=== PATIENT | male | born 1950 | race Hispanic/Latino ===

== ENCOUNTER 2018-09-28 15:07 | Emergency (ER) | payer OTHER ==
[2018-09-28] MEDS ORDERED: TETANUS & DIPHTHERIA TOX,ADULT 0.5 ML VIAL ONE (15:39)
--- NOTE | 2018-09-28 15:57 | RAD REPORT ---
EXAM DESCRIPTION: CT - CTHCSPWOC - 09/28/2018 3:49 pm CLINICAL HISTORY: Trauma, head and neck injury. Fall injury, laceratoin back of head COMPARISON: No comparisons TECHNIQUE: Axial 5 mm thick images of the head were obtained. Axial 2 mm thick images of the cervical spine were obtained with sagittal and coronal reconstruction images generated and reviewed. All CT scans are performed using dose optimization technique as appropriate and may include automated exposure control or mA/KV adjustment according to patient size. FINDINGS: CT HEAD WITHOUT CONTRAST: No acute hemorrhage, hydrocephalus or extra-axial collection is identified.Moderate generalized brain atrophy is present with moderate periventricular and deep white matter chronic microvascular ischemi c changes.No areas of brain edema or midline shift. Chronic left maxillary sinusitis suspected. The paranasal sinuses and mastoids are otherwise clear.Th e calvarium is intact. CT CERVICAL SPINE WITHOUT CONTRAST: No fracture or subluxation.Mild lower cervical degenerative changes.No prevertebral soft tissues swel ling is identified. IMPRESSION: No acute intracranial or cervical spine findings.
--- NOTE | 2018-09-28 16:41 | ER ---
Nurse's Notes [facility] Name: Francisco Recio Age: 68 yrs Sex: Male : 1950 Arrival Date: 09/28/2018 Time: 15:09 Bed 26 Private MD: Diagnosis: Laceration without foreign body of scalp Presentation: 09/28 15:11 Presenting complaint: EMS states: pt fell in room, it was witnessed, no LOC, no tl3 vomiting, no change in pt normal behavior. Transition of care: patient was [facility]. Complicating Factors: There are no complicating factors for this patient. Onset of symptoms was September 28, 2018 at 15:13. Risk Assessment: Do you want to hurt yourself or someone else? Patient reports no desire to harm self or others. Initial Sepsis Screen: Does the patient meet any 2 criteria? No. Patient's initial sepsis screen is negative. Does the patient have a suspected source of infection? No. Patient's initial sepsis screen is negative. Care prior to arrival: None. 15:11 Method Of Arrival: EMS: [facility] tl3 15:11 Acuity: TITUS 4 tl3 Triage Assessment: 15:20 General: Appears in no apparent distress. General: Behavior is calm, appropriate for tl3 age, pt only able to communicate his name. Pain: Denies pain. EENT: No deficits noted. No signs and/or symptoms were reported regarding the EENT system. Neuro: No deficits noted. Level of Consciousness is awake, alert, obeys commands, Oriented to person, place, time, situation, Appropriate for age. Cardiovascular: Patient's skin is warm and dry. Respiratory: Airway is patent Respiratory effort is even, unlabored, Respiratory pattern is regular, symmetrical. GI: No deficits noted. No signs and/or symptoms were reported involving the gastrointestinal system. Injury Description: Laceration sustained to occipital area is clean, jagged, not bleeding. Historical: - Allergies: 15:20 No Known Allergies; tl3 - Home Meds: 15:20 benztropine 0.5 mg Oral tab 1 tab 2 times per day [Active]; Depakote Sprinkles six tl3 capsules Oral 2 times per day [Active]; donepezil 10 mg oral tab 2 tab nightly [Active]; ergocalciferol (vitamin D2) 50,000 unit oral cap 1 cap once daily [Active]; gabapentin 100 mg oral cap 1 caps daily [Active]; hydroxyzine HCl 25 mg Oral tab 1 tab 4 times per day [Active]; magnesium oxide 400 mg Oral cap daily [Active]; Prozac 20 mg Oral cap 1 cap once daily [Active]; quetiapine 100 mg oral tab 1 tab daily [Active]; quetiapine 400 mg oral tab 1 tab nightly [Active]; - PMHx: 15:20 Dementia; Hypertension; psycosis; Polyosteoarthritis; tl3 - Immunization history:: Adult Immunizations up to date. - Social history:: Smoking status: unknown. - Ebola Screening: : No symptoms or risks identified at this time. Screenin:26 Abuse screen: Denies threats or abuse. Nutritional screening: No deficits noted. tl3 Tuberculosis screening: No symptoms or risk factors identified. Fall Risk Secondary diagnosis (15 points) dementia, impaired mobility. Assessment: 15:26 Reassessment: No changes from previously documented assessment. pt placed in room 26 in tl3 front of nursing station for observation. Musculoskeletal: No deficits noted. Injury Description: fell in room, unsure of what pt hit his head on. 16:12 Reassessment: report given to [facility], will arrange for [facility] ambulance iw service to transport pt back to facility. 16:13 Reassessment: wound cleaned with betadine, hair trimmed around injury to allow for good tl3 visualzation. 17:22 Reassessment: Patient appears in no apparent distress at this time. No changes from tl3 previously documented assessment. Patient and/or family updated on plan of care and expected duration. Pain level reassessed. Patient is alert, oriented x 3, equal unlabored respirations, skin warm/dry/pink. awaiting transport to bring pt back to facility. 18:46 Reassessment: Patient appears in no apparent distress at this time. No changes from tl3 previously documented assessment. Patient and/or family updated on plan of care and expected duration. Pain level reassessed. Patient is alert, oriented x 3, equal unlabored respirations, skin warm/dry/pink. [facility] transfer service here to take pt back to facility. Vital Signs: 15:20 BP 143 / 78; Pulse 75; Resp 18; Temp 98.7(A); Pulse Ox 100% on R/A; tl3 17:22 BP 124 / 71; Pulse 68; Resp 18; Pulse Ox 97% on R/A; tl3 ED Course: 15:09 Patient arrived in ED. tl3 15:13 Triage completed. tl3 15:18 Stuart Lyons, ROHIT is Primary Nurse. mg2 15:19 Alejandro Richmond [facility]. pm1 15:19 Quincy Engel MD is Attending Physician. pm1 15:20 Arm band placed on left wrist. tl3 15:26 Patient has correct armband on for positive identification. Fall risk band placed. Bed tl3 in low position. Call light in reach. Side rails up X2. 15:26 No provider procedures requiring assistance completed. Patient did not have IV access tl3 during this emergency room visit. 15:[address] via stretcher. tl3 15:49 CT Head C Spine In Process Unspecified. EDMS 15:[address] moved back from [address]. tl3 Administered Medications: 15:33 Drug: Tetanus-Diphtheria Toxoid Adult 0.5 ml {Manager Salt: [employer] Exp: tl3 10/22/2020. Lot #: [id number]. } Route: IM; Site: right deltoid; 17:23 Follow up: Response: No adverse reaction tl3 Outcome: 16:40 Discharge ordered by . pm1 18:46 Discharged to [facility]. tl3 18:46 Condition: stable 18:46 Discharge instructions given to EMS. 18:48 Patient left the ED. tl3 Signatures: Dispatcher [employer] EDUzma Scales RN RN iw Alejandro Richmond NP [employer]ER pm1 Sadie Iglesias RN RN tl3 Stuart Lyons, ROHIT RN mg2
--- NOTE | 2018-09-28 16:41 | EDPHYS ---
Physician Documentation [facility] Name: Francisco Recio Age: 68 yrs Sex: Male : 1950 Arrival Date: 09/28/2018 Time: 15:09 Bed 26 Private MD: ED Physician Quincy Engel HPI: 09/28 15:38 This 68 yrs old Male presents to ER via EMS with complaints of Fall Injury. pm1 15:38 Details of fall: The patient fell from an upright position, while standing. Onset: The pm1 symptoms/episode began/occurred just prior to arrival. Associated injuries: The patient sustained injury to the head, laceration, of the scalp and occipital area. Patient from skilled nursing. According to EMS, patient is at his baseline dementia. Patient is aware only to his name. 15:38 Witnessed fall by skilled nursing staff. Patient ambulated to dining area and he was pm1 sitting down and eating popcorn per EMS on arrival. Historical: - Allergies: 15:20 No Known Allergies; tl3 - Home Meds: 15:20 benztropine 0.5 mg Oral tab 1 tab 2 times per day [Active]; Depakote Sprinkles six tl3 capsules Oral 2 times per day [Active]; donepezil 10 mg oral tab 2 tab nightly [Active]; ergocalciferol (vitamin D2) 50,000 unit oral cap 1 cap once daily [Active]; gabapentin 100 mg oral cap 1 caps daily [Active]; hydroxyzine HCl 25 mg Oral tab 1 tab 4 times per day [Active]; magnesium oxide 400 mg Oral cap daily [Active]; Prozac 20 mg Oral cap 1 cap once daily [Active]; quetiapine 100 mg oral tab 1 tab daily [Active]; quetiapine 400 mg oral tab 1 tab nightly [Active]; - PMHx: 15:20 Dementia; Hypertension; psycosis; Polyosteoarthritis; tl3 - Immunization history:: Adult Immunizations up to date. - Social history:: Smoking status: unknown. - Ebola Screening: : No symptoms or risks identified at this time. ROS: 15:38 Constitutional: Negative for fever, chills, and weight loss, Eyes: Negative for injury, pm1 pain, redness, and discharge, ENT: Negative for injury, pain, and discharge, Neck: Negative for injury, pain, and swelling, Cardiovascular: Negative for chest pain, palpitations, and edema, Respiratory: Negative for shortness of breath, cough, wheezing, and pleuritic chest pain, Abdomen/GI: Negative for abdominal pain, nausea, vomiting, diarrhea, and constipation, Back: Negative for injury and pain, : Negative for injury, bleeding, discharge, and swelling, MS/Extremity: Negative for injury and deformity. 15:38 Skin: Positive for laceration(s), of the scalp and occipital area. 15:38 Neuro: Negative for loss of consciousness. 15:38 Unable to obtain ROS due to baseline dementia. pm1 Exam: 15:38 Constitutional: This is a well developed, well nourished patient who is awake, alert, pm1 and in no acute distress. 15:38 Eyes: Pupils equal round and reactive to light, extra-ocular motions intact. Lids and lashes normal. Conjunctiva and sclera are non-icteric and not injected. Cornea within normal limits. Periorbital areas with no swelling, redness, or edema. ENT: Nares patent. No nasal discharge, no septal abnormalities noted. Tympanic membranes are normal and external auditory canals are clear. Oropharynx with no redness, swelling, or masses, exudates, or evidence of obstruction, uvula midline. Mucous membranes moist. Neck: Trachea midline, no thyromegaly or masses palpated, and no cervical lymphadenopathy. Supple, full range of motion without nuchal rigidity, or vertebral point tenderness. No Meningismus. Chest/axilla: Normal chest wall appearance and motion. Nontender with no deformity. No lesions are appreciated. Cardiovascular: Regular rate and rhythm with a normal S1 and S2. No gallops, murmurs, or rubs. Normal PMI, no JVD. No pulse deficits. Respiratory: Lungs have equal breath sounds bilaterally, clear to auscultation and percussion. No rales, rhonchi or wheezes noted. No increased work of breathing, no retractions or nasal flaring. Abdomen/GI: Soft, non-tender, with normal bowel sounds. No distension or tympany. No guarding or rebound. No evidence of tenderness throughout. Back: No spinal tenderness. No costovertebral tenderness. Full range of motion. Skin: Warm, dry with normal turgor. Normal color with no rashes, no lesions, and no evidence of cellulitis. MS/ Extremity: Pulses equal, no cyanosis. Neurovascular intact. Full, normal range of motion. 15:38 Head/face: Noted is no obvious of injury or deformity except a laceration(s), 2 cm(s), of the scalp and occipital area. 15:38 Neuro: Orientation: to person, Motor: moves all fours. Vital Signs: 15:20 BP 143 / 78; Pulse 75; Resp 18; Temp 98.7(A); Pulse Ox 100% on R/A; tl3 17:22 BP 124 / 71; Pulse 68; Resp 18; Pulse Ox 97% on R/A; tl3 Laceration: 16:38 Wound Repair of 2cm ( 0.8in ) subcutaneous laceration to occipital area. Irregularly pm1 shaped.. Distal neuro/vascular/tendon intact. Wound prep: Extensive cleansing with betadine by nurse, Wound irrigation with saline by nurse, Wound explored extensively, Copious irrigation. Skin closed with 2 1-0 Charissa using staple gun. Patient tolerated well. MDM: 15:25 Patient medically screened. pm1 16:38 Data reviewed: vital signs. Data interpreted: Pulse oximetry: on room air is 100 %. pm1 Interpretation: normal. Counseling: I had a detailed discussion with the patient and/or guardian regarding: the historical points, exam findings, and any diagnostic results supporting the discharge/admit diagnosis, the need for outpatient follow up, to return to the emergency department if symptoms worsen or persist or if there are any questions or concerns that arise at home. 09/28 15:26 Order name: CT Head C Spine; Complete Time: 16:09 pm1 09/28 15:26 Order name: [facility] [place]. Order: Staple gun; Complete Time: 15:29 pm1 Administered Medications: 15:33 Drug: Tetanus-Diphtheria Toxoid Adult 0.5 ml {Financial Analysis Manager: [employer] Exp: tl3 10/22/2020. Lot #: [id number]. } Route: IM; Site: right deltoid; 17:23 Follow up: Response: No adverse reaction tl3 Disposition: 09/29 09:36 Co-signature as Attending Physician, Quincy Engel MD I agree with the assessment and kdr plan of care. Disposition: 09/28/18 16:40 Discharged to Home. Impression: Laceration without foreign body of scalp. - Condition is Stable. - Discharge Instructions: Head Injury, Adult, Stitches, [place], or Adhesive Wound Closure. - Medication Reconciliation Form, Thank You Letter form. - Follow up: Emergency Department; When: As needed; Reason: Worsening of condition. Follow up: Private Physician; When: 10 - 14 days; Reason: Recheck today's complaints, Continuance of care, Staple/Suture removal, Re-evaluation by your physician. - Problem is new. - Symptoms have improved. Signatures: Dispatcher [employer] EDMS Quincy Engel MD MD kdr Alejandro Richmond NP [employer]NEL FEEDER pm1 Sadie Iglesias RN RN tl3 Corrections: (The following items were deleted from the chart) 09/28 18:48 16:40 09/28/2018 16:40 Discharged to Home. Impression: Laceration without foreign body tl3 of scalp. Condition is Stable. Forms are Medication Reconciliation Form, Thank You Letter, Antibiotic Education, Prescription Opioid Use. Follow up: Emergency Department; When: As needed; Reason: Worsening of condition. Follow up: Private Physician; When: 10 - 14 days; Reason: Recheck today's complaints, Continuance of care, Staple/Suture removal, Re-evaluation by your physician. Problem is new. Symptoms have improved. pm1
== END 2018-09-28 18:48 | disposition home or self-care (01) ==
LOC: ER 15:07
PROC: 0JQ00ZZ Repair Scalp Subcutaneous Tissue and Fascia, Open Approach (ICD-10-PCS; principal; 2018-09-28)
DX: S01.01XA Laceration without foreign body of scalp, initial encounter (principal); Z23 Encounter for immunization; W19.XXXA Unspecified fall, initial encounter; Y92.122 Bedroom in nursing home as the place of occurrence of the external cause; F03.90 Unspecified dementia, unspecified severity, without behavioral disturbance, psychotic disturbance, mood disturbance, and anxiety; I10 Essential (primary) hypertension; M15.0 Primary generalized (osteo)arthritis; Z79.899 Other long term (current) drug therapy
CPT/HCPCS: 70450; 72125; 90714; 99284

== ENCOUNTER 2019-09-02 17:04 | Inpatient (IN) | payer OTHER ==
[2019-09-02] MEDS ORDERED: MIDAZOLAM HCL 2 MG/2 ML INJ ONE (17:33)
[2019-09-02 17:41] LABS: Absolute Lymphocytes (CBC) 0.6 K/uL (0.7-4.9); Basophils % 0.3 % (0-1.3); Hematocrit 35.6 % (39.6-49.0); Lymphocytes % 4.8 % (15.3-44.8); MPV 10.1 fL (7.6-11.3); RBC Red Blood Cell Count 3.92 M/uL (4.33-5.43)
[2019-09-02 17:50] LABS: Arterial Blood Carboxyhemoglob 0.5 % (0-1.5); Blood O2 Saturation 98.3 % (92-98.5)
[2019-09-02 18:02] LABS: Potassium 5.1 mmol/L (3.5-5.1); Troponin (Emerg Dept Use Only) 0.04 ng/mL (0.0-0.045)
[2019-09-02] MEDS ORDERED: ACETAMINOPHEN 650MG/RECT SUPP PR ONE (18:06)
[2019-09-02] MEDS ORDERED: PROPOFOL 1,000 MG/100 ML VIAL IV ONE (18:15)
[2019-09-02 18:28] LABS: Urine Blood NEGATIVE (NEG); Urine Glucose NEGATIVE (NEG); Urine Protein 1+ (NEG); Urine pH 5.5 (5.0-7.0)
[2019-09-02] MEDS ORDERED: CEFEPIME 1 GM/100 ML BAG IV ONE (18:28)
--- NOTE | 2019-09-02 18:29 | ER ---
Nurse's Notes [facility] Name: Francisco Recio Age: 69 yrs Sex: Male : 1950 Arrival Date: 09/02/2019 Time: 17:05 Bed 3 Private MD: Diagnosis: Sepsis, unspecified organism;Pneumonia, unspecified organism;Acute kidney failure;Acute respiratory failure Presentation: 09/02 17:11 Presenting complaint: EMS states: Called out for respiratory distress. Upon arrival, EMS states that patient's GCS was 6. Pt was intubated on scene. 17:11 Method Of Arrival: EMS: [facility] 17:11 Transition of care: patient was received from another setting of care (long-term care facility), [facility]. Onset of symptoms was September 02, 2019. Risk Assessment: Do you want to hurt yourself or someone else? Unable to obtain. Initial Sepsis Screen: Does the patient meet any 2 criteria? Altered Mental Status. HR > 90 bpm. Does the patient have a suspected source of infection? Yes: Productive cough/pneumonia If YES to both, name of provider notified: Dereje Kate MD. Care prior to arrival: Oral intubation, Medication(s) given: Normal saline infusion, 1000 mL, RSI meds: 200 mg Ketamine, 50 mcg Fentanyl and 120 mg Succs IV initiated. 18 GA, in the left antecubital area, Glucose check: 146 18 F NG tube. 17:11 Acuity: TITUS 1 Triage Assessment: 17:11 General: Appears distressed, obese, Behavior is unresponsive. Pain: Unable to use pain bp scale. Patient is intubated. EENT: No deficits noted. Neuro: Level of Consciousness is unresponsive, Oriented to none. Cardiovascular: Rhythm is sinus tachycardia. Respiratory: Reports shortness of breath cough that is Airway via oral intubation Respiratory effort is labored, Breath sounds are coarse bilaterally. Onset: The symptoms/episode began/occurred at an unknown time. the patient has severe shortness of breath. GI: No signs and/or symptoms were reported involving the gastrointestinal system. : No signs and/or symptoms were reported regarding the genitourinary system. Derm: Decubitus located on bilateral heel(s) approximately 2.6 cm to 7.5 cm is stage II. Musculoskeletal: No deficits noted. Historical: - Allergies: 17:21 No Known Allergies; ss - Home Meds: 20:20 quetiapine 400 mg Oral tab 1 tab nightly [Active]; quetiapine 100 mg Oral tab 1 tab bb daily [Active]; benztropine 0.5 mg Oral tab 1 tab 2 times per day [Active]; Depakote Sprinkles six capsules Oral 2 times per day [Active]; donepezil 10 mg Oral tab 2 tab nightly [Active]; escitalopram oxalate 20 mg oral tab 1 tab once daily [Active]; gabapentin 100 mg Oral cap 1 caps 3 times per day [Active]; Lasix 40 mg Oral tab 1 tab once daily [Active]; magnesium oxide 400 mg Oral cap daily [Active]; potassium chloride 20 mEq Oral TbER 1 tab once daily [Active]; Oscal 500/200 mg one tab daily [Active]; hydroxyzine HCl 25 mg Oral tab 1 tab [Active]; - PMHx: 17:21 dementia; Hypertension; polyosteoarthritis; schizoaffectice disorder; Bipolar disorder; ss - Immunization history:: Adult Immunizations unknown. - Social history:: Smoking status: unknown. - Ebola Screening: : Unable to complete screening because patient is unresponsive, patient is intubated. - History obtained from: EMS. Screenin:00 Abuse screen: Denies threats or abuse. Denies injuries from another. Nutritional bp screening: No deficits noted. Tuberculosis screening: No symptoms or risk factors identified. Fall Risk None identified. Assessment: 17:11 General: SEE TRIAGE NOTE. CODE SEPSIS. Cardiovascular: Rhythm is sinus tachycardia. bp 17:11 Neuro: PT NONVERBAL, SEDATED AND INTUBATED. UNABLE TO FOLLOW COMMANDS, UNCOOPERATIVE bp WITH HEALTH CARE. RESTRAINTS PLACED FOR PT SAFETY. 18:07 Reassessment: Dr. Kate notified of critical lab value. Lactate 3.8. ss 18:30 Reassessment: NGT FOUND ON GROUND, D/C BY PT. RESTRAINTS RE-EVAL'ED. bp 19:12 Reassessment: PT RETURNED FROM CT. bp 19:41 General: Appears pt is sedated and intubated, ET tube in place, right femoral line in bb place, IV to left AC intact, patent, no erythema or edema noted, merritt catheter in place to bedside drain. Respirations are assisted, bilateral breath sounds coarse, S1 and S2 present, 2+ non-pitting edema to right hand, bilateral radial pulses palpable, abdomen is distended, diminished bowel sounds in all quadrants, left heel has tissue damage non-stageable.. 20:06 Reassessment: No changes from previously documented assessment. awaiting call back from david ICU nurse for report prior to pt being transferred to ICU. 20:28 Reassessment: no change in pt's condition report called to Michelle BEE for ICU 1. david Vital Signs: 17:10 BP 79 / 51; Pulse 109; Resp 20; Pulse Ox 91% on ETT vent; Weight 100 kg; bp 17:30 BP 82 / 63; Pulse 112; Resp 23; Pulse Ox 81% on 40% FiO2 ETT vent; bp 18:00 BP 84 / 69; Pulse 109; Resp 30; Temp 101.3; Pulse Ox 98% ; bp 18:30 BP 92 / 69; Pulse 100; Resp 18; Temp 101.9; Pulse Ox 95% ; bp 19:00 BP 97 / 72; Pulse 96; Resp 21; Temp 101.5; Pulse Ox 96% ; bp 19:15 BP 83 / 65; Pulse 89; Resp 20 S; Temp 100.9(C); Pulse Ox 96% on 60% FiO2 ETT vent; bb 19:30 BP 93 / 64; Pulse 86; Resp 17 S; Temp 100.5(C); Pulse Ox 97% on 60% FiO2 ETT vent; bb 19:45 BP 120 / 80; Pulse 89; Resp 18 S; Temp 100.3(C); Pulse Ox 97% on 60% FiO2 ETT vent; bb 20:00 BP 108 / 74; Pulse 84; Resp 17 A; Temp 100.1; Pulse Ox 98% on 60% FiO2 ETT vent; bb 20:30 BP 109 / 76; Pulse 81; Resp 15; Temp 99.9(C); Pulse Ox 95% on 60% FiO2 ETT vent; ED Course: 17:05 Patient arrived in ED. am2 17:10 Dereje Kate MD is Attending Physician. rn 17:10 Arm band placed on right wrist. ss 17:11 Assisted provider with intubation using 7.5 mm ETT via oral route. ET tube secured at bp 23cm at the teeth. NGT: inserted other TIMERS INSPECTOR. Maintain EMS IV. Dressing intact. Good blood return noted. Site clean \T\ dry. Gauge \T\ site: 18 G LEFT AC. 17:15 Rafael Ledbetter, ROHIT is Primary Nurse. tr5 17:19 Triage completed. ss 17:30 Assisted provider with central line placement. Set up central line tray. Triple lumen bp line placed in right femoral. Line placed by Dereje Kate MD Placement verified by blood return, Dressed with Tegaderm, Blood was collected. Patient tolerated well. Before procedure, did Practitioner(s) obtain informed consent? No. Patient \T\ family education about procedure, CLABSI prevention and S/S of infection? No. Time-out/Briefing performed prior to start of procedure? Yes. Was handwashing/sanitizing done immediately prior to procedure? Yes. Was patient positioned to in a way to prevent air embolism? Yes. Was procedure site sterilized? Yes, with chlorhexidine. Was the site allowed to dry? Yes. Was local anesthetic and/or sedation utilized? Yes. During the procedure, did the Practitioner(s) maintain a sterile field? Yes. Were unused ports clamped during insertion? Yes. Was a 2nd qualified MD obtained after 3 unsuccessful insertion attempts? No. Was blood aspirated from each lumen? Yes. After the procedure, did the Practitioner(s) clean the site and apply a sterile dressing? Yes. 17:40 Merritt cath inserted, using sterile technique, 16 Fr., by me, balloon inflated, to bp gravity drainage, returned rao urine. Patient tolerated well. 17:47 Chest Single View XRAY In Process Unspecified. EDMS 18:00 Patient has correct armband on for positive identification. Placed in gown. Bed in low bp position. Call light in reach. Side rails up X2. 18:25 Richmond Chamberlain DO is Hospitalizing Provider. rn 19:08 CT Chest Abdomen Pelvis W/O Contrast In Process Unspecified. EDMS 19:30 NGT: inserted 14 Fr. via right nare. verified placement of air over stomach, verified lp1 return of gastric contents. 20:29 Repeat lab(s) drawn. by ED staff, sent to lab. bb 20:30 Patient admitted, IV remains in place. bb Restraints: 17:15 Non-Violent Restraint: Order obtained. Initiated on September 02, 2019 at 17:15 Unable bp to provide Restraint education. PT UNABLE TO UNDERSTAND. Actions/Behavior observed: Confused/disoriented, has decreased level of consciousness, unable to follow instructions, repeated attempts to remove/tamper lines/tubes/IV med devices \T\ wound dressing, repeated attempts to remove artifical airway/mechanical resp support, Less restrictive alternatives attempted: decrease environmental stimuli, reoriented to location, medications evaluated, medicated for pain/anxiety, lines/tubes covered, Alternative interventions: Ineffective. Clinical justification for use: airway protection, line protection, patient safety, Mental status: confused, Cognition: Unable to assess. Circulation: Within defined parameters (based on Cardiovascular assessment) Skin integrity: Within defined parameters (based on Integumentary assessment) Signs of injury related to restraint: No injuries noted. Range of Motion (ROM): performed. Elimination/Hygiene: with urinary catheter, Restraint status: Soft wrist restraint (Right) Started. Soft wrist restraint (Left) Started. Criteria to discontinue Restraint not met. Restraint continued. 19:15 Non-Violent Restraint: Cognition: Unable to assess. Circulation: Within defined bb parameters (based on Cardiovascular assessment) Skin integrity: Within defined parameters (based on Integumentary assessment) Signs of injury related to restraint: No injuries noted. Range of Motion (ROM): performed. Administered Medications: 17:15 Drug: NS 0.9% 1000 ml Route: IV; Rate: 1000 ml; Site: left antecubital; bp 18:50 Follow up: IV Status: Completed infusion; IV Intake: 1000ml bb 17:30 Drug: Cefepime 1 grams Route: IVPB; Rate: 200 ml/hr; Infused Over: 30 mins; Site: right bp femoral; 18:30 Follow up: IV Status: Completed infusion; IV Intake: 100ml bb 17:30 Drug: NS 0.9% 1000 ml Route: IV; Rate: 1000 ml; Site: right femoral; bp 19:40 Follow up: IV Status: Completed infusion; IV Intake: 1000ml bb 17:30 Drug: Versed 2 mg Route: IVP; Site: left antecubital; bp 18:19 Follow up: Response: No adverse reaction bp 17:45 Drug: Levophed (4 mg/250 mL D5W 4 mcg/min Route: IV; Rate: calculated rate; Site: right bp femoral; 20:30 Follow up: IV Status: Infusion continued upon admission bb 18:00 Drug: Propofol 5 mcg/kg/min Route: IV; Rate: calculated rate; Site: right femoral; bp 20:30 Follow up: IV Status: Infusion continued upon admission bb 18:10 Drug: Acetaminophen Suppository 650 mg Route: MT; ss 18:19 Follow up: Response: No adverse reaction bp 18:19 CANCELLED (Duplicate Order): Propofol 5 mcg/kg/min IV at calculated rate continuous; bp titrate per protocol (titrate by 5-10mcg/kg/min every 10 min to max rate of 50 mcg/kg/min) 19:10 Drug: vancoMYCIN 1 grams Route: IVPB; Infused Over: 2 hrs; Site: right femoral; bb 20:32 Follow up: IV Status: Infusion continued upon admission bb Intake: 18:30 IV: 100ml; Total: 100ml. bb 18:50 IV: 1000ml; Total: 1100ml. bb 19:40 IV: 1000ml; Total: 2100ml. bb Ventilator: 20:09 Fi02: 60%; Rate: 14min; T.V.: 550ml; Peep: 5cm; Mode: CMV; ET tube: 7.5 mm (Oral); bb Outcome: 18:28 Decision to Hospitalize by Provider. rn 19:57 Instructed on the need for admit, pt is intubated and sedated bb 20:29 Admitted to ICU accompanied by nurse, accompanied by tech, via stretcher, room 1, with bb oxygen, on monitor, with chart, Report called to Michelle RN 20:29 Condition: stable 20:49 Patient left the ED. bb Signatures: Dispatcher [employer] EDMS Olesya Driver RN RN bb Dereje Kate MD MD rn Smirch, Shelby, RN RN Brianna Garner RN RN [email or web address] Marcy Church Brian, RN RN Rafael Rodriguez RN RN tr5 Corrections: (The following items were deleted from the chart) 17:55 17:11 Care prior to arrival: Medication(s) given: Normal saline infusion, 1000 mL, RSI bp meds: 200 mg Ketamine, 50 mcg Fentanyl and 120 mg Succs IV initiated. 18 GA, in the left antecubital area, Glucose check: 146 ss 18:17 17:11 Care prior to arrival: Oral intubation, Medication(s) given: Normal saline ss infusion, 1000 mL, RSI meds: 200 mg Ketamine, 50 mcg Fentanyl and 120 mg Succs IV initiated. 18 GA, in the left antecubital area, Glucose check: 146 bp 18:18 17:10 BP 79 / 51; Pulse 109bpm; Resp 20bpm; Pulse Ox 91% ET / Ventilator; ss bp 18:18 17:11 General: SEE TRIAGE NOTE. bp bp 18:18 17:11 Cardiovascular: Rhythm is sinus tachycardia bp bp
--- NOTE | 2019-09-02 18:30 | EDPHYS ---
Physician Documentation [facility] Name: Francisco Recio Age: 69 yrs Sex: Male : 1950 Arrival Date: 09/02/2019 Time: 17:05 Bed 3 Private MD: ED Physician Dereje Kate HPI: 09/02 17:14 This 69 yrs old Male presents to ER via Unassigned with complaints of rn Respiratory Distress. 17:14 Unable to obtain HPI due to patient is on ventilator. Per EMS report, called for rn respiratory distress, reports GCS approx 7 upon arrival, hypoxic, and intubated at scene, given fentanyl/ketamine/succinylcholine. Report fever, hypotension, and AMS. . Historical: - Allergies: 17:21 No Known Allergies; ss - Home Meds: 20:20 quetiapine 400 mg Oral tab 1 tab nightly [Active]; quetiapine 100 mg Oral tab 1 tab bb daily [Active]; benztropine 0.5 mg Oral tab 1 tab 2 times per day [Active]; Depakote Sprinkles six capsules Oral 2 times per day [Active]; donepezil 10 mg Oral tab 2 tab nightly [Active]; escitalopram oxalate 20 mg oral tab 1 tab once daily [Active]; gabapentin 100 mg Oral cap 1 caps 3 times per day [Active]; Lasix 40 mg Oral tab 1 tab once daily [Active]; magnesium oxide 400 mg Oral cap daily [Active]; potassium chloride 20 mEq Oral TbER 1 tab once daily [Active]; Oscal 500/200 mg one tab daily [Active]; hydroxyzine HCl 25 mg Oral tab 1 tab [Active]; - PMHx: 17:21 dementia; Hypertension; polyosteoarthritis; schizoaffectice disorder; Bipolar disorder; ss - Immunization history:: Adult Immunizations unknown. - Social history:: Smoking status: unknown. - Ebola Screening: : Unable to complete screening because patient is unresponsive, patient is intubated. - History obtained from: EMS. ROS: 17:14 Unable to obtain ROS due to patient is on ventilator. rn Exam: 17:14 Constitutional: Thin male, intubated Head/Face: Normocephalic, atraumatic. Eyes: rn Pupils 3mm, equal and reactive. ENT: dry MM, ETT in place Cardiovascular: Tachycardic, regular Respiratory: Coarse bilateral breath sounds with diminished right lung base Abdomen/GI: soft, non-tender MS/ Extremity: Pulses equal, no cyanosis. Neurovascular intact. Full, normal range of motion. Equal circumference. Neuro: Responsive to painful stimuli and tugging ETT, otherwise no purposeful motion. 18:03 ECG was reviewed by the Attending Physician. rn Vital Signs: 17:10 BP 79 / 51; Pulse 109; Resp 20; Pulse Ox 91% on ETT vent; Weight 100 kg; bp 17:30 BP 82 / 63; Pulse 112; Resp 23; Pulse Ox 81% on 40% FiO2 ETT vent; bp 18:00 BP 84 / 69; Pulse 109; Resp 30; Temp 101.3; Pulse Ox 98% ; bp 18:30 BP 92 / 69; Pulse 100; Resp 18; Temp 101.9; Pulse Ox 95% ; bp 19:00 BP 97 / 72; Pulse 96; Resp 21; Temp 101.5; Pulse Ox 96% ; bp 19:15 BP 83 / 65; Pulse 89; Resp 20 S; Temp 100.9(C); Pulse Ox 96% on 60% FiO2 ETT vent; bb 19:30 BP 93 / 64; Pulse 86; Resp 17 S; Temp 100.5(C); Pulse Ox 97% on 60% FiO2 ETT vent; bb 19:45 BP 120 / 80; Pulse 89; Resp 18 S; Temp 100.3(C); Pulse Ox 97% on 60% FiO2 ETT vent; bb 20:00 BP 108 / 74; Pulse 84; Resp 17 A; Temp 100.1; Pulse Ox 98% on 60% FiO2 ETT vent; bb 20:30 BP 109 / 76; Pulse 81; Resp 15; Temp 99.9(C); Pulse Ox 95% on 60% FiO2 ETT vent; bb Ventilator: 20:09 Fi02: 60%; Rate: 14min; T.V.: 550ml; Peep: 5cm; Mode: CMV; ET tube: 7.5 mm (Oral); bb Procedures: 17:34 Central Line: the site was prepped with Betadine, in sterile fashion, a triple lumen rn catheter was inserted, in the right in 1 attempts. placement was verified, by blood return, the site was dressed with Tegaderm, using sterile technique, the patient tolerated the procedure, well. MDM: 17:10 Patient medically screened. rn 17:34 Differential diagnosis: CHF exacerbation, pneumonia, pulmonary edema, Sepsis. Data rn reviewed: vital signs, nurses notes. 18:22 Counseling: I had a detailed discussion with the patient and/or guardian regarding: the rn historical points, exam findings, and any diagnostic results supporting the discharge/admit diagnosis, lab results, radiology results, the need for further work-up and treatment in the hospital. Response to treatment: the patient's symptoms have mildly improved after treatment, and as a result, I will admit patient. Admission orders: after a detailed discussion of the patient's condition and case, the admit orders are written by me. ED course: Pt improved, abx given, responding to fluids and levophed. Symptoms and labs/imaging consistent with sepsis with pulmonary source. Will admit to ICU. . 09/02 17:11 Order name: ABG; Complete Time: 18:21 09/02 17:11 Order name: Urine Culture 09/02 17:11 Order name: Sputum Culture 09/02 17:11 Order name: Basic Metabolic Panel 09/02 17:11 Order name: Blood Culture Adult (2) 09/02 17:11 Order name: CBC with Diff 09/02 17:11 Order name: Lactate; Complete Time: 18:09 09/02 17:11 Order name: Procalcitonin; Complete Time: 18:16 09/02 17:11 Order name: Troponin (emerg Dept Use Only); Complete Time: 18:09 09/02 17:11 Order name: Urine Microscopic Only; Complete Time: 18:36 09/02 17:12 Order name: Flu; Complete Time: 18:29 09/02 17:12 Order name: N-Terminal Pro-brain Natriuretic Peptide; Complete Time: 18:09 09/02 17:13 Order name: Urine Culture [facility] 09/02 17:13 Order name: Sputum Culture [facility] 09/02 17:11 Order name: Chest Single View XRAY; Complete Time: 19:48 09/02 17:13 Order name: Basic Metabolic Panel; Complete Time: 18:09 [facility] 09/02 17:52 Order name: CBC Smear Scan [facility] 09/02 17:55 Order name: CT Chest Abdomen Pelvis W/O Contrast; Complete Time: 19:48 rn 09/02 18:25 Order name: Urine Dipstick--Ancillary (enter results); Complete Time: 18:36 ms 09/02 19:22 Order name: Lactic Dehydrogenase [facility] 09/02 19:23 Order name: Slides for Pathologist Review [facility] 09/02 17:11 Order name: Accucheck; Complete Time: 17:53 rn 09/02 17:11 Order name: Cardiac monitoring; Complete Time: 17:53 rn 09/02 17:11 Order name: EKG - Nurse/Tech; Complete Time: 17:54 rn 09/02 17:11 Order name: IV Saline Lock - Large Bore; Complete Time: 17:53 rn 09/02 17:11 Order name: Labs collected and sent; Complete Time: 17:54 rn 09/02 17:11 Order name: O2 Per Protocol; Complete Time: 17:54 rn 09/02 17:11 Order name: O2 Sat Monitoring; Complete Time: 17:54 rn 09/02 17:11 Order name: Urine Dipstick-Ancillary (obtain specimen); Complete Time: 18:12 rn 09/02 18:20 Order name: Restraint:Non-Violent; Complete Time: 18:23 bp EC:03 Rate is 109 beats/min. Rhythm is regular. QRS [place] is Normal. ME interval is normal. rn QRS interval is normal. QT interval is normal. No Q waves. T waves are Normal. No ST changes noted. Clinical impression: Sinus tachycardia. Interpreted by me. Reviewed by me. Administered Medications: 17:15 Drug: NS 0.9% 1000 ml Route: IV; Rate: 1000 ml; Site: left antecubital; bp 18:50 Follow up: IV Status: Completed infusion; IV Intake: 1000ml bb 17:30 Drug: Cefepime 1 grams Route: IVPB; Rate: 200 ml/hr; Infused Over: 30 mins; Site: right bp femoral; 18:30 Follow up: IV Status: Completed infusion; IV Intake: 100ml bb 17:30 Drug: NS 0.9% 1000 ml Route: IV; Rate: 1000 ml; Site: right femoral; bp 19:40 Follow up: IV Status: Completed infusion; IV Intake: 1000ml bb 17:30 Drug: Versed 2 mg Route: IVP; Site: left antecubital; bp 18:19 Follow up: Response: No adverse reaction bp 17:45 Drug: Levophed (4 mg/250 mL D5W 4 mcg/min Route: IV; Rate: calculated rate; Site: right bp femoral; 20:30 Follow up: IV Status: Infusion continued upon admission bb 18:00 Drug: Propofol 5 mcg/kg/min Route: IV; Rate: calculated rate; Site: right femoral; bp 20:30 Follow up: IV Status: Infusion continued upon admission bb 18:10 Drug: Acetaminophen Suppository 650 mg Route: ME; ss 18:19 Follow up: Response: No adverse reaction bp 18:19 CANCELLED (Duplicate Order): Propofol 5 mcg/kg/min IV at calculated rate continuous; bp titrate per protocol (titrate by 5-10mcg/kg/min every 10 min to max rate of 50 mcg/kg/min) 19:10 Drug: vancoMYCIN 1 grams Route: IVPB; Infused Over: 2 hrs; Site: right femoral; bb 20:32 Follow up: IV Status: Infusion continued upon admission bb Disposition: 18:22 Critical Care:. rn Disposition: 09/02/19 18:28 Hospitalization ordered by Richmond Chamberlain for Inpatient Admission. Preliminary diagnosis are Sepsis, unspecified organism, Pneumonia, unspecified organism, Acute kidney failure, Acute respiratory failure. - Bed requested for Intensive Care Unit. - Status is Inpatient Admission. bb - Condition is Stable. - Problem is new. - Symptoms have improved. UTI on Admission? No Critical care time excluding procedures: 18:22 Critical care time: Bedside Care: 30 minutes. Total time: 30 minutes rn Signatures: Dispatcher [employer] EDAnastasia Merida, HENRY-C [employer] Olesya Driver, RN RN bb Dereje Kate MD MD rn Smirch, Shelby, RN RN ss Kelsea Hester, ROHIT BEE cg Elvis Izquierdo RN RN bp Corrections: (The following items were deleted from the chart) 18:19 18:18 Propofol 5 mcg/kg/min IV at calculated rate continuous; titrate per protocol bp (titrate by 5-10mcg/kg/min every 10 min to max rate of 50 mcg/kg/min) ordered. bp 19:25 18:28 Hospitalization Ordered by Richmond Chamberlain DO for Inpatient Admission. Preliminary cg diagnosis is Sepsis, unspecified organism; Pneumonia, unspecified organism; Acute kidney failure; Acute respiratory failure. Bed requested for Intensive Care Unit. Status is Inpatient Admission. Condition is Stable. Problem is new. Symptoms have improved. UTI on Admission? No. rn 20:49 19:25 09/02/2019 18:28 Hospitalization Ordered by Richmond Chamberlain DO for Inpatient bb Admission. Preliminary diagnosis is Sepsis, unspecified organism; Pneumonia, unspecified organism; Acute kidney failure; Acute respiratory failure. Bed requested for Intensive Care Unit. Status is Inpatient Admission. Condition is Stable. Problem is new. Symptoms have improved. UTI on Admission? No. cg
[2019-09-02 18:33] LABS: Urine Bacteria 20-50 /HPF (NONE SEEN); Urine RBC <5 /HPF (NONE SEEN)
[2019-09-02 18:34] LABS: Urine Amorphous Sediment 1+ /HPF (NONE SEEN); Urine Culture Reflex Order NOT NEEDED; Urine Mucus 2+ /HPF (NONE SEEN)
[2019-09-02] MEDS ORDERED: VANCOMYCIN/NS 1 gm 1 GM/250 ML BAG IVPB ONE ×3 (19:00→23:15)
--- NOTE | 2019-09-02 19:28 | P.HP ---
Certification for Inpatient Patient admitted to: Inpatient With expected LOS: >2 Midnights Patient will require the following post-hospital care: Other (Back to Intermediate) Practitioner: I am a practitioner with admitting privileges, knowledge of patient current condition, hospital course, and medical plan of care. Services: Services provided to patient in accordance with Admission requirements found in Title 42 Section 412.3 of the Code of Federal Regulations Patient History Date of Service: 09/02/19 Primary Care Provider: [facility] physician Reason for admission: Altered mental status, respiratory distress History of Present Illness: 69-year-old male with history of Alzheimer's dementia, schizophrenia, hypertension and chronic renal disease. Patient lives from half-way. Most of the information came from the ER physician. ER reports that the patient was having fever and confusion at the half-way. EMS was called. Patient was altered and having respiratory distress. Blood pressure was low. Patient was intubated in the field. 1 L bolus was given. By the time the patient arrived to the ER patient was stabilized. Patient was started on vancomycin and cefepime. Sepsis protocol initiated. 2 L have been given with improvement of blood pressure and heart rate. Initial T-max was 101.3. Patient now stable. Lab shows white count 12.6, hemoglobin 11.8. Platelet count of 72. Sodium 151, potassium 5.1, BUN of 55, creatinine 3.05 with a GFR of 21. Glucose 135. Pro calcitonin elevated at 16. Lactic acid elevated at 3.8. Troponin 0.04. BNP 1320. Urinalysis was positive for bacteria. Blood gases appeared stable intubated with a pH is 7.35. CT head and neck unremarkable for acute findings. CT chest and abdomen pending at this time. No significant EKG changes noted. Chest x-ray shows possible right lower lobe pneumonia. Patient has remained stable. Patient will go to the ICU. I was able to discuss medical plan of care with on the phone. She reports patient has been doing well. Only issues of Alzheimer's dementia, schizophrenia and chronic renal disease has been noted. He has been at the half-way since 2017. Home medications list reviewed: No - Past Medical/Surgical History Diabetic: No -: Hypertension -: Alzheimer's dementia -: Schizophrenia -: Chronic renal disease Past Surgical History: Unable to obtain Psychosocial/ Personal History: Patient lives at a half-way since 2017. - Family History Family History: Reviewed- Non-Contributory - Social History Smoking Status: Never smoker Alcohol use: No CD- Drugs: No Caffeine use: No Place of Residence: Intermediate Review of Systems is unable to be obtained Physical Examination - Physical Exam General: Other (Patient appears stable. Patient sedated and intubated.) HEENT: Atraumatic, Normocephalic, Mucous membr. moist/pink Neck: Supple Respiratory: Clear to auscultation bilaterally, Other (ET tube remains in place. ) Cardiovascular: Normal pulses, Regular rate/rhythm Gastrointestinal: Hypoactive (Throughout), Soft and benign, No tenderness, No masses, No rebound, Distended (Slight distention noted) Musculoskeletal: No warmth Integumentary: No erythema, No warmth, No cyanosis, Tenderness/swelling (1+ pitting edema lower extremities bilateral) Neurological: Other (Patient remains intubated and sedated) Urinary: Lynn catheter - Studies Laboratory Data (last 24 hrs) 09/02/19 17:30: WBC 12.6 H, Hgb 11.8 L, Hct 35.6 L, Plt Count 72 L 09/02/19 17:30: Sodium 151 H, Potassium 5.1, BUN 55 H D, Creatinine 3.05 H D, Glucose 135 H Microbiology Data (last 24 hrs): 09/02/19 17:48 Nasopharnyx Influenza Type A Antigen Screen - Final 09/02/19 17:48 Nasopharnyx Influenza Type B Antigen Screen - Final Assessment and Plan - Plan Impression: Fever, altered mental status secondary to toxic encephalopathy with acute respiratory failure related to septic shock likely from right lower lobe pneumonia and UTI Acute on chronic renal failure stage 4 with hypernatremia Schizophrenia Alzheimer's dementia History of hypertension Anemia likely of chronic disease Thrombocytopenia likely related to septic shock Plan: Fever, altered mental status secondary to toxic encephalopathy with acute respiratory failure related to septic shock likely from right lower lobe pneumonia and UTI: Patient will be admitted to ICU. Patient currently stable, sedated and intubated. CT chest and abdomen to be obtained. Continue vent protocol. Will consult pulmonology to further evaluate and treat. Will continue with IV vancomycin and cefepime. Continue sepsis protocol. Blood, urine and sputum culture obtained. Patient has been given IV fluid bolus. Continue with IV fluids. Patient on IV Levophed. Will try to wean off. Will provide DVT prophylaxis. This may need to be held if platelet count less than 70. Continue to monitor closely. Recheck lab, chest x-ray and ABG in the morning. Continue to monitor closely. Await further recommendation by pulmonology. Acute on chronic renal failure stage 4 with hypernatremia: Patient has been given 2 L of IV fluid. Will start D5 W. nephrology consulted. Await further recommendation. Will check renal ultrasound. Schizophrenia: Will need to verify home medication. Will provide IV thiamine. Alzheimer's dementia: Obtain and verify half-way medication. History of hypertension: Obtain and verify home medication. Patient with septic shock at this time. Patient on Levophed. Anemia likely of chronic disease: Will monitor closely. Thrombocytopenia likely related to septic shock: Will monitor closely. Will obtain PT, INR, LDH, haptoglobin and peripheral smear to further evaluate. Discharge Plan: Intermediate Plan to discharge in: Greater than 2 days - Advance Directives Does patient have a Living Will: No Does patient have a Durable POA for Healthcare: No - Code Status/Comfort Care Code Status Assessed: Yes (Spoke with . Patient is full code.) Time Spent Managing Pts Care (In Minutes): 65
--- NOTE | 2019-09-02 19:39 | RAD REPORT ---
EXAM DESCRIPTION: CT - Chest Abd Pelvis Wo Con - 09/02/2019 7:08 pm CLINICAL HISTORY: Shortness of breath and abdominal pain COMPARISON: none TECHNIQUE: Computed axial tomography of the chest, abdomen and pelvis was obtained. Oral contrast wa s given. IV contrast was not requested. All CT scans are performed using dose optimization technique as appropriate and may include automated exposure control or mA/KV adjustment according to patient size. FINDINGS: The evaluation of mediastinum, julian, vessels and solid organs is limited secondary to the lack of IV contrast administration Endotracheal tube with its tip well above the lawrence No mediastinal or hilar lymphadenopathy is seen. A pleural effusion is not present. A pericardial effusion is not seen. Moderate right lower lobe consolidation. Mild right middle lobe consolidation. Mild right upper lobe opacities. Left lung is essentially clear. Cirrhotic liver. The density is markedly inhomogeneous. The liver is mildly enlarged The spleen, pancreas and adrenals appear grossly normal There is no evidence of diverticulitis. A Lynn catheter is present within the bladder. Small inguina l hernias contain fat. Small amount of ascites IMPRESSION: Right pneumonia Cirrhotic liver Density of the liver is very inhomogeneous. There probably are masses within the liver. Ultrasound is recommended
--- NOTE | 2019-09-02 19:41 | RAD REPORT ---
EXAM DESCRIPTION: RAD - Chest Single View - 09/02/2019 5:47 pm CLINICAL HISTORY: sob COMPARISON: None FINDINGS: Endotracheal tube has tip well above the lawrence Moderate right basilar opacity Left lung appears clear of acute infiltrate The heart is normal size Nasogastric tube is present within the stomach IMPRESSION: Moderate right basilar opacity consistent with pneumonia
[2019-09-02 20:29] LABS: Blood Morphology Comment NOT SEEN (NOT SEEN); Platelet Estimate DECR; Urine White Blood Cell Casts OK
[2019-09-02] MEDS ORDERED: NA CHLORIDE 0.9% 0 ML ONE (20:50)
[2019-09-02] MEDS ORDERED: VANCOMYCIN 1 GM/VIAL ONE ×2 (20:50→23:22)
[2019-09-02] MEDS: IPRATROPIUM BROM 0.5MG/2.5ML NEB SCH (20:54)
[2019-09-02] MEDS: ALBUTEROL 2.5 MG/3 ML NEB SOL NEB SCH (20:54)
[2019-09-02] MEDS ORDERED: ACETAMINOPHEN 650MG/RECT SUPP RECT PRN (20:54)
[2019-09-02] MEDS ORDERED: ACETAMINOPHEN 500 MG TAB PO PRN (20:54)
[2019-09-02] MEDS ORDERED: ONDANSETRON 4 MG/2 ML VIAL IV PRN (20:54)
[2019-09-02 21:38] LABS: Protime INR 1.44
[2019-09-02] MEDS: D5W 1,000 ML IV SCH (21:54)
[2019-09-02] MEDS ORDERED: HALOPERIDOL LACT 5 MG/ML INJ IV PRN (22:09)
[2019-09-02] MEDS ORDERED: MIDAZOLAM HCL 2 MG/2 ML INJ IV PRN (22:09)
[2019-09-02] MEDS ORDERED: FENTANYL CITR 100 MCG/2 ML IV PRN (22:09)
[2019-09-02] MEDS ORDERED: LORazepam 2 MG/ML VIAL IV PRN (22:09)
[2019-09-02] MEDS ORDERED: PROPOFOL 1,000 MG/100 ML VIAL IV PRN (22:09)
[2019-09-02 22:27] LABS: Barbiturates NEGATIVE (NEGATIVE); Benzodiazepines POSITIVE (NEGATIVE); Cocaine NEGATIVE (NEGATIVE); METHAMPHETAM NEGATIVE (NEGATIVE); Methadone NEGATIVE (NEGATIVE); Opiates NEGATIVE (NEGATIVE); Phencyclidine NEGATIVE (NEGATIVE); THC Cannibis NEGATIVE (NEGATIVE)
[2019-09-02] MEDS ORDERED: NA CHLORIDE 0.9% 1,000 ML IV ONE (23:05)
--- NOTE | 2019-09-02 23:05 | P.INFCA ---
Sepsis Focused Assessment - Focused Assessment Complete? Sepsis Focused Assessment Completed?: Yes - Sepsis Screen Result Septic Shock: Positive - Evaluation Current stage of sepsis: Septic shock - Vital Signs Reviewed: Yes Temperature: 99.1 F Heart rate: 74 Blood Pressure: 76/51 Respiratory Rate: 14 O2 Sat by Pulse Oximetry: 97 - Examination Date exam was performed: 09/02/19 Time exam was performed: 23:05 Heart: Regular rate/rhythm Lungs: Clear bilaterally Peripheral pulses: 3+ Normal Peripheral pulse location: Pedal Capillary refill: <2 Seconds Skin examination: Normal turgor (patient is stable, sedated and intubated.)
[2019-09-02] MEDS: HEPARIN 5000 UNIT/ML 1 ML VIAL SQ SCH (23:19)
[2019-09-02] MEDS ORDERED: NA CHLORIDE 0.9% 250 ML ONE (23:22)
[2019-09-02 23:37] LABS: CKMB Creatine Kinase MB 1.6 ng/mL (0.3-3.6); Troponin I 0.04 ng/mL (0.0-0.045)
[2019-09-03] MEDS: ALBUTEROL 2.5 MG/3 ML NEB SOL NEB SCH ×4 (02:00→19:30)
[2019-09-03] MEDS: IPRATROPIUM BROM 0.5MG/2.5ML NEB SCH ×4 (02:00→19:30)
[2019-09-03] MEDS: NOREPINEPHRINE 4 MG in D5W 250 ML IV PRN ×2 (03:52→14:01)
[2019-09-03 05:32] LABS: Arterial Blood Carboxyhemoglob 0.9 % (0-1.5); Blood Gas Oxyhemoglobin 96.7 % (94-97); Blood O2 Saturation 98.1 % (92-98.5)
[2019-09-03 06:31] LABS: Absolute Lymphocytes (CBC) 1.3 K/uL (0.7-4.9); Basophils % 0.2 % (0-1.3); Hematocrit 32.8 % (39.6-49.0); MPV 10.4 fL (7.6-11.3); RBC Red Blood Cell Count 3.57 M/uL (4.33-5.43)
[2019-09-03 06:44] LABS: CKMB Creatine Kinase MB 1.5 ng/mL (0.3-3.6); Troponin I 0.02 ng/mL (0.0-0.045)
[2019-09-03 07:10] LABS: Magnesium 2.6 mg/dL (1.8-2.4); Potassium 4.4 mmol/L (3.5-5.1)
[2019-09-03 07:11] LABS: Thyroid Stimulating Hormone 6.56 uIU/mL (0.360-3.740)
[2019-09-03] MEDS: THIAMINE 200 MG/2 ML INJ IVP SCH (08:37)
[2019-09-03] MEDS: FAMOTIDINE 20 MG/2 ML VIAL IV SCH (08:37)
[2019-09-03] MEDS: HEPARIN 5000 UNIT/ML 1 ML VIAL SQ SCH ×2 (08:37→21:31)
[2019-09-03] MEDS ORDERED: Ringers Lactate 1,000 ML IV SCH (09:00)
[2019-09-03] MEDS ORDERED: Ringers Lactate 1,000 ML IV ONE (09:00)
[2019-09-03] MEDS ORDERED: VANCOMYCIN 1 GM in NA CHLORIDE 0.9% 500 ML IVPB SCH (09:00)
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
[2019-09-03] MEDS: D5W 1,000 ML IV SCH (09:27)
--- NOTE | 2019-09-03 09:45 | P.PN ---
Subjective Date of Service: 09/03/19 Primary Care Provider: longterm physician Chief Complaint: Respiratory failure and septic shock Patient is 69 years of age with end-stage dementia admitted from [facility] with septic shock right lower lobe pneumonia hypernatremia and acute renal failure his condition is stable currently he is the 9 mics of Levophed propofol has been stopped oxygenation satisfactory Review of Systems is unable to be obtained Physical Examination - Vital Signs Temperature: 97.2 F Blood Pressure: 96/58 Pulse: 54 Respirations: 14 Pulse Ox (%): 98 - Physical Exam General: Unresponsive Respiratory: Clear to auscultation bilaterally, Diminished Cardiovascular: Edema - Studies Laboratory Data (last 24 hrs) 09/02/19 17:30: WBC 12.6 H, Hgb 11.8 L, Hct 35.6 L, Plt Count 72 L 09/02/19 17:30: Sodium 151 H, Potassium 5.1, BUN 55 H D, Creatinine 3.05 H D, Glucose 135 H Microbiology Data (last 24 hrs): 09/02/19 17:48 Nasopharnyx Influenza Type A Antigen Screen - Final 09/02/19 17:48 Nasopharnyx Influenza Type B Antigen Screen - Final Assessment & Plan - Problems (Diagnosis) (1) Septic shock Current Visit: Yes Status: Acute Plan: Patient is 69 years of age and stage dementia admitted from [facility] in septic shock and plan to wean him off the Levophed start him lactated ringers. He is also hypernatremic a cute renal failure right lower lobe pneumonia cultures pending on vancomycin and cefepime he does eat at home nonverbal will recheck his sodium patient has lots of secretions minimal oxygen once his blood pressure is stable will wean him off the ventilator
[2019-09-03] MEDS: D5 0.45 NS 1,000 ML IV SCH (11:42)
[2019-09-03] MEDS: CALCIUM GLUC 10% INJ 4.65 MEQ in NA CHLORIDE 0.9% 100 ML IV SCH ×2 (12:16→21:31)
--- NOTE | 2019-09-03 12:26 | RAD REPORT ---
EXAM DESCRIPTION: US - Renal Ultrasound-Complete - 09/03/2019 10:26 am CLINICAL HISTORY: acute on chronic renal failure Flank pain COMPARISON: No comparisons FINDINGS: Both kidneys are normal in size, shape and echotexture. The right kidney measures 11.9 x 5.3 x 4.6 cm. No hydronephrosis, focal mass or perinephric fluid. The left kidney measures 11.2 x 5.9 x 5.2 cm. No hydronephrosis, focal mass or perinephric fluid. The urinary bladder is incompletely distended without gross abnormality seen. IMPRESSION: Unremarkable renal sonogram.
--- NOTE | 2019-09-03 12:31 | RAD REPORT ---
EXAM DESCRIPTION: US - Liver Only - 09/03/2019 10:27 am CLINICAL HISTORY: evaluate liver masses. CT showed liver cirrhosis COMPARISON: Chest Abd Pelvis Wo Con dated 09/02/2019 FINDINGS: Diffusely heterogenous appearance to the liver is present compatible with cirrhosis.Multip le echogenic lesions are present throughout the liver parenchyma probably regenerating nodules but no nspecific.No evidence of portal vein thrombosis. On a nonemergent basis, MRI liver protocol may be of value for further characterization of the findin gs.
--- NOTE | 2019-09-03 12:46 | RAD REPORT ---
EXAM DESCRIPTION: RAD - Chest Single View - 09/03/2019 6:45 am CLINICAL HISTORY: followup resp. failure, pt intubated Chest pain. COMPARISON: Chest Single View dated 09/02/2019 FINDINGS: Portable technique limits examination quality. Tip of the ET tube is above the lawrence. Enteric tube coils in the stomach. Right lung base linear opa cities are present likely atelectasis or infiltrate.Heart is upper limit normal size.
--- NOTE | 2019-09-03 16:15 | CON ---
Date of Consultation: 09/03/2019 Reason For Consultation: Elevated BUN and creatinine, hypernatremia. History Of Present Illness: All the information has been obtained from the daughter by bedside as frida chand being intubated. This is a 69-year-old gentleman with significant past medical history of Alzh eimer/dementia, hypertension, psycho effect, schizophrenia, chronic kidney disease with baseline crea tinine 1.3, GFR of 45 back in July 2019. Patient was in his regular state of health. Apparently, came to the hospital because of full altered mental status. EMS was called, found to be hypotensive with respiratory distress. Patient was intubated in the field. At that time, his Friendship scale was 6. Patient approached to the hospital. Blood pressure was down to the 70s, started on Levophed. P rimary workup found to have elevated BUN and creatinine, hypernatremia. For that reason, we have kerri duran consulted. As outpatient patient being on hydrochlorothiazide and ARB. No recent hospitalization. No nonsteroidal. Over the night, patient received a 3 L of normal saline, 1 L of LR and 1 L of D5. Creatinine has bee n improved from 3.0 to 2.5. GFR has been improved from 21 to 26. But his sodium continue to be elev ated, only dropped from 151 to 150. His BUN stay the same. Patient had urine output of 350 in the l ast 12 hours. Past Medical History: Include: 1.Alzheimer dementia. 2.Schizophrenia. 3.Hypertension. 4.Chronic kidney disease, baseline creatinine 1.3, GFR of 45 back in July 2019. Past Surgical History: None obtainable. Family History: None obtainable. Social History: Lives in detention. Review of Systems: None obtainable. Physical Examination: General: When I saw the patient, patient on a pressor. Vital Signs: Blood pressure of 89/58, pulse of 52, afebrile. Patient had urine output of 350. Chest: Faint crackles on the right base. Heart: S1, S2. Regular. Systolic murmur. Abdomen: Soft, nontender. Extremities: +1 edema. Neuro: Patient has been sedated. Laboratory Data: The patient's chest x-ray showed cardiomegaly with congestion compared to the chest x-ray upon admission. Sodium 150, potassium 4.4, bicarb 24, BUN 53, creatinine 2.5, calcium 6.8. M agnesium 2.6. BNP of 1320. TSH 6.5. Cortisol level still pending. Urinalysis; specific gravity of 1.020. WBC of 10. Serology still pending. ABG; pH 7.40, CO2 of 37, O2 of 120. INR 1.4. CT abdom en and pelvis show cirrhosis of the liver. With small ascites, no mention for hydronephrosis. Medications: [facility] medications include quetiapine, KCl, calcium carbonate, Lasix 40, gabapent in, citalopram, benzonatate, Tylenol. Current medications in the hospital include Tylenol, breathing treatment, cefepime, LR, thiamin, vanc omycin. Assessment And Plan: Acute kidney injury, multifactorial, toxic acute tubular necrosis secondary to sepsis, poor perfusion, acute tubular necrosis secondary to septic shocks superimposed with Lasix use . No hyperkalemia. Obstructive uropathy has been ruled out. Patient looked to me, still on the dry side with some third spacing. 1.I am going to go ahead and change IV fluid from LR to D5 half to avoid any potassium load given th e hyperkalemia upon admission and because of the limited kidney function. 2.We will follow up renal ultrasound. I am going to follow up protein creatinine. 3.Hypertension, currently hypotension. Keep holding all blood pressure medications especially Lasix . 4.Hypernatremia secondary to depletion also superimposed with diuresis. We will change IV fluid as above and we will monitor the patient. 5.Septic shock secondary to possible aspiration pneumonia, right lower lobe. Patient was started on cefepime, and vancomycin. I am going to change the cefepime to Zosyn to have some cover on an eye r ub and we will follow up the patient. 6.Hypocalcemia. We will start the patient on calcium gluconate. I am going to go ahead and send fo r albumin, vitamin D25-OH and PTH and we will follow up. 7.Chronic kidney disease stage 3 with acute kidney injury as above. Thank you, Dr. Chamberlain, for allowing us to participate in the care of your patient. Case discussed wi the staff, agreed on the plan. Discussed with the family by bedside. VIOLET/LEDY Voice ID: [id number] Report ID: [id number]
[2019-09-03] MEDS: PIPER/TAZO/NS 2.25gm 2.25 GM/50 ML BAG IVPB SCH (16:56)
[2019-09-03] MEDS ORDERED: CEFEPIME 1 GM/VIAL IV SCH (18:00)
[2019-09-04] MEDS: D5 0.45 NS 1,000 ML IV SCH ×2 (01:23→08:00)
[2019-09-04] MEDS: PIPER/TAZO/NS 2.25gm 2.25 GM/50 ML BAG IVPB SCH ×3 (01:23→17:07)
[2019-09-04] MEDS: IPRATROPIUM BROM 0.5MG/2.5ML NEB SCH ×4 (01:45→20:00)
[2019-09-04] MEDS: ALBUTEROL 2.5 MG/3 ML NEB SOL NEB SCH ×4 (01:45→20:00)
[2019-09-04] MEDS: CALCIUM GLUC 10% INJ 4.65 MEQ in NA CHLORIDE 0.9% 100 ML IV SCH (04:47)
[2019-09-04 05:29] LABS: Absolute Lymphocytes (CBC) 0.8 K/uL (0.7-4.9); Basophils % 0.2 % (0-1.3); Hematocrit 32.7 % (39.6-49.0); Lymphocytes % 7.4 % (15.3-44.8); MPV 10.5 fL (7.6-11.3); RBC Red Blood Cell Count 3.59 M/uL (4.33-5.43)
[2019-09-04 05:40] LABS: Albumin 1.1 g/dL (3.4-5.0); Magnesium 2.5 mg/dL (1.8-2.4); Phosphorus 2.5 mg/dL (2.5-4.9); Potassium 4.2 mmol/L (3.5-5.1); Uric Acid 7.4 mg/dL (3.5-7.2)
[2019-09-04 05:44] LABS: Blood Morphology Comment NOT SEEN (NOT SEEN); Platelet Estimate DECR
[2019-09-04 05:56] VITALS: BMI 29.2
[2019-09-04] MEDS: HEPARIN 5000 UNIT/ML 1 ML VIAL SQ SCH ×2 (08:40→21:50)
[2019-09-04] MEDS: FAMOTIDINE 20 MG/2 ML VIAL IV SCH (08:40)
[2019-09-04] MEDS: THIAMINE 200 MG/2 ML INJ IVP SCH (08:40)
[2019-09-04] MEDS ORDERED: VANCOMYCIN 1.5 GM in NA CHLORIDE 0.9% 500 ML IVPB SCH (09:00)
--- NOTE | 2019-09-04 10:12 | ECHO ---
HEIGHT: 5 ft 8 in WEIGHT: 192 lb 0 oz DATE OF STUDY: 09/04/[address]: Richmond Chamberlain DO 2-DIMENSIONAL: YES M.MODE: YES DOPPLER: YES COLOR FLOW: YES TDS: NO PORTABLE: YES DEFINITY: NO BUBBLE STUDY: NO DIAGNOSIS: SEPTIC SHOCK CARDIAC HISTORY: CATHERIZATION: NO SURGERY: NO PROSTHETIC VALVE: NO PACEMAKER: NO MEASUREMENTS (cm) DIASTOLIC (NORMALS) SYSTOLIC (NORMALS) IVSd 1.0 (0.6-1.2) LA Diam (1.9-4.0) LVEF 70% LVIDd 5.5 (3.5-5.7) LVIDs 3.3 (2.0-3.5) %FS 40% LVPWd 1.1 (0.6-1.2) Ao Diam 3.3 (2.0-3.7) 2 DIMENSIONAL ASSESSMENT: RIGHT ATRIUM: NORMAL LEFT ATRIUM: NORMAL RIGHT VENTRICLE: NORMAL LEFT VENTRICLE: NORMAL TRICUSPID VALVE: NORMAL MITRAL VALVE: NORMAL PULMONIC VALVE: NORMAL AORTIC VALVE: NORMAL PERICARDIAL EFFUSION: NONE AORTIC ROOT: NORMAL LEFT VENTRICULAR WALL MOTION: NORMAL. DOPPLER/COLOR FLOW: NORMAL. COMMENTS: NORMAL 2 D ECHO WITH DOPPLER. TECHNOLOGIST: CHELI CHRISTOPHER
--- NOTE | 2019-09-04 12:21 | P.PN ---
Subjective Date of Service: 09/04/19 Primary Care Provider: detention physician Chief Complaint: Respiratory failure and septic shock Patient is doing much better hemodynamically stable his off vasopressors on propofol blood cultures are positive and plan to wean him off from the ventilator Review of Systems is unable to be obtained Physical Examination - Vital Signs Temperature: 98.3 F Blood Pressure: 101/53 Pulse: 56 Respirations: 13 Pulse Ox (%): 99 - Physical Exam General: Unresponsive Respiratory: Clear to auscultation bilaterally Cardiovascular: No edema, Regular rate/rhythm - Studies Microbiology Data (last 24 hrs): 09/02/19 17:51 Sputum Gram Stain - Final Assessment & Plan - Problems (Diagnosis) (1) Septic shock Current Visit: Yes Status: Acute Plan: P patient admitted with septic shock respiratory failure he is hemodynamically stable is weaned off vasopressors and propofol blood cultures positive id pending urinalysis negative possible pneumonia patient is hypernatremic sodium is still elevated change to D5 water white count declining chest x-ray no obvious infiltrate
[2019-09-04] MEDS: D5W 1,000 ML IV SCH (13:00)
[2019-09-04 14:10] LABS: Urine Protein/Creatinine Ratio 0.69 ratio (<0.15)
--- NOTE | 2019-09-04 15:37 | P.PN ---
Subjective Date of Service: 09/04/19 Primary Care Provider: alf physician Chief Complaint: Respiratory failure and septic shock Subjective: No new changes, No C/O voiced, NPO, Doing well, Other (Still remaines intubated.) Review of Systems 10-point ROS is otherwise unremarkable Physical Examination - Vital Signs Temperature: 98.4 F Blood Pressure: 99/58 Pulse: 70 Respirations: 13 Pulse Ox (%): 96 - Physical Exam General: Cooperative, Other (Intubated) Respiratory: Normal air movement, Expiratory wheezes, Inspiratory wheezes Cardiovascular: Regular rate/rhythm, Normal S1 S2 Gastrointestinal: Normal bowel sounds, No tenderness Musculoskeletal: No tenderness Integumentary: No rashes Lymphatics: No axilla or inguinal lymphadenopathy - Studies Microbiology Data (last 24 hrs): 09/02/19 17:51 Sputum Gram Stain - Final Medications List Reviewed: Yes Assessment And Plan - Plan Assessment And Plan: Sepsis most likely secondary to right lower lobe pneumonia versus UTI -currently patient is off the vasopressor -currently on IV vancomycin and Zosyn -Blood, sputum and urine culture negative thus far -Hemodynamically stable for now -Will continue with abx for now Acute Respiratory Failure -Currently Intubated. Following commands at this time -Pulmonology on board and Appreciate Reccs -Will continue with wean trial as patient tolerates. -Repeat xray and abg in AM. Toxic encephalopathy -Alert and Remains intubated. -Head Ct negative for acute abnormality -will monitor patient closely Acute on chronic renal failure stage 4 with hypernatremia -nephrology consulted. Appreciated recommendations -currently on D5 W. Will follow up with nephrology is recommendations -sodium is elevated today -patient may need free water flushes Schizophrenia -on home medication Alzheimer's dementia -Restart Home medication History of hypertension -Will monitor Anemia likely of chronic disease -Will monitor closely. Dispo: Pending clinical improvement Discharge Plan: Home Plan to discharge in: 48 Hours - Code Status/Comfort Care Code Status Assessed: Yes Critical Care: No
[2019-09-05] MEDS: PIPER/TAZO/NS 2.25gm 2.25 GM/50 ML BAG IVPB SCH ×2 (00:24→09:09)
[2019-09-05] MEDS: D5W 1,000 ML IV SCH (01:44)
[2019-09-05] MEDS: ALBUTEROL 2.5 MG/3 ML NEB SOL NEB SCH ×4 (02:00→19:50)
[2019-09-05] MEDS: IPRATROPIUM BROM 0.5MG/2.5ML NEB SCH ×4 (02:00→19:50)
--- NOTE | 2019-09-05 03:01 | PN ---
Date of Progress Note: 09/04/2019 Chief Complaint: Elevated BUN, creatinine, and hypernatremia. Patient has multiple medical problems. A 69-year-old man with significant history of Alzheimer, dementia, hypertension, schizoaffective disorder, schizophrenia, chronic kidney disease, baseline creatinine 1.3 and GFR 45. One blood work was obtained back in July. Patient was brought by EMS to the hospital because of hypotension. Patient is intubated. Review of Systems: Patient cannot provide review of systems because of the patient's condition. Physical Examination: Lungs: Coarse breath sounds bilaterally. Heart: S1, S2. Abdomen: Soft, benign. No rebound. No guarding. Extremities: 1+ edema. Laboratory Data: Sodium 150, potassium 4.4, bicarbonate 24, BUN 53, creatinine 2.5, calcium 6.8, magnesium 2.6. CT scan of the abdomen and pelvis showed cirrhosis of the liver and small ascites. No mentioning of the hydronephrosis. Impression And Plan: 1. Acute kidney injury, prerenal azotemia due to acute tubular necrosis secondary to sepsis and hypoperfusion. Patient developed acute tubular necrosis secondary to septic shock superimposed with Lasix use. 2. Obstructive uropathy has been ruled out. Patient has peripheral edema. Patient has been on pressors and pressors were weaned today off and the patient will have IV Lasix as needed. 3. Hypertension, currently hypotension. Patient is recovering from septic shock. 4. Hypernatremia, depletional and secondary to diuretic and monitor sodium level, adjust IV fluids accordingly. I spent 36 min including 25 min to coordinate care plan. KARTHIK/LEDY Voice ID: [id number] Report ID: [id number] YIN
[2019-09-05 05:12] LABS: Absolute Lymphocytes (CBC) 0.9 K/uL (0.7-4.9); Basophils % 0.1 % (0-1.3); Hematocrit 31.8 % (39.6-49.0); Lymphocytes % 8.8 % (15.3-44.8); RBC Red Blood Cell Count 3.51 M/uL (4.33-5.43)
[2019-09-05 05:27] LABS: Albumin 1.2 g/dL (3.4-5.0); Magnesium 2.5 mg/dL (1.8-2.4); Phosphorus 1.8 mg/dL (2.5-4.9); Potassium 3.8 mmol/L (3.5-5.1)
[2019-09-05] MEDS ORDERED: hydrOXYzine HCL 25 MG TAB PO PRN (06:54)
[2019-09-05] MEDS ORDERED: HYDROCORTISONE 1 % CREAM 30GM TOP PRN (06:54)
[2019-09-05] MEDS ORDERED: ACETAMINOPHEN 325 MG TABLET PO PRN (06:54)
[2019-09-05] MEDS ORDERED: ALBUMIN HUMAN 25% 100 ML IV ONE (07:06)
[2019-09-05] MEDS ORDERED: MAGNESIUM HYDROXIDE 8% 30 ML PO PRN (08:03)
[2019-09-05] MEDS: POTASSIUM CL SA 10 MEQ TAB PO SCH (09:00)
[2019-09-05] MEDS: MAGNESIUM OXIDE 400 MG TAB PO SCH (09:00)
[2019-09-05] MEDS: QUETIAPINE 100MG TAB PO SCH ×3 (09:00→21:49)
[2019-09-05] MEDS: HEPARIN 5000 UNIT/ML 1 ML VIAL SQ SCH ×2 (09:10→21:49)
[2019-09-05] MEDS: CALCIUM CARB 500MG/VIT D 200 IU TAB PO SCH (09:10)
[2019-09-05] MEDS: FAMOTIDINE 20 MG/2 ML VIAL IV SCH (09:10)
[2019-09-05] MEDS: ESCITALOPRAM 20 MG TAB PO SCH (09:10)
[2019-09-05] MEDS: THIAMINE 200 MG/2 ML INJ IVP SCH (09:10)
[2019-09-05] MEDS: DIVALPROEX NA 125 MG CAP PO SCH ×2 (09:11→21:47)
[2019-09-05] MEDS: JUVEN PACKET PO SCH ×2 (09:15→21:49)
[2019-09-05] MEDS: GABAPENTIN 100 MG CAP PO SCH ×3 (09:17→21:48)
[2019-09-05] MEDS: BENZTROPINE 1 MG TAB PO SCH ×2 (09:21→21:49)
[2019-09-05] MEDS ORDERED: POTASSIUM PHOS IN 0.9 % NACL 15 MMOL/250 ML BAG IV ONE (12:11)
[2019-09-05] MEDS ORDERED: FUROSEMIDE 20 MG/ 2ML VIAL IV ONE (12:11)
[2019-09-05] MEDS ORDERED: D5W 1,000 ML IV SCH (13:00)
[2019-09-05] MEDS ORDERED: MIDODRINE HCL 5 MG TABLET PO ONE (13:00)
--- NOTE | 2019-09-05 14:14 | P.PN ---
Subjective Date of Service: 09/05/19 Primary Care Provider: [facility] physician Chief Complaint: Respiratory failure and septic shock Patient seen and examined at bedside with RN. Chart reviewed. Case discussed with RN and pulmonology. This morning patient remains stable has been extubated now. No complaints to offer overnight. Denies having any shortness of breath nausea vomiting. Does appear to be travel the however easily arousable with sternal rub. Review of Systems 10-point ROS is otherwise unremarkable Physical Examination - Vital Signs Temperature: 99.0 F Blood Pressure: 87/51 Pulse: 66 Respirations: 23 Pulse Ox (%): 97 - Physical Exam General: In no apparent distress, Cachectic, Other (Lethargic arousable with sternal rub) Respiratory: Normal air movement, Expiratory wheezes, Inspiratory wheezes Cardiovascular: Regular rate/rhythm, Normal S1 S2 Gastrointestinal: Normal bowel sounds, No tenderness Musculoskeletal: No tenderness Integumentary: No rashes Neurological: Normal strength at 5/5 x4 extr, Normal tone Lymphatics: No axilla or inguinal lymphadenopathy - Studies Microbiology Data (last 24 hrs): 09/02/19 17:51 Sputum Gram Stain - Final 09/02/19 18:15 Catheterized Urine [place] Count - Final 09/02/19 18:15 Catheterized Urine - Final No growth. 09/02/19 17:30 Blood - Blood Aerobic Blood Culture - Final Proteus Mirabilis 09/02/19 17:30 Blood - Blood Gram Stain - Final 09/02/19 17:30 Blood - Blood Anaerobic Blood Culture - Final Proteus Mirabilis 09/02/19 17:30 Blood - Blood Gram Stain - Final Medications List Reviewed: Yes Assessment And Plan - Plan Assessment And Plan: Sepsis most likely secondary to right lower lobe pneumonia versus UTI versus Bactermia -currently patient is off the vasopressor -currently on IV vancomycin and Zosyn empirically for pneumonia and UTI -Blood + for Proteus sensitive to vancomycin, sputum and urine culture negative thus far -Hemodynamically stable for now -Will continue with abx -leukocytosis is improving and patient has remained afebrile Acute Respiratory Failure now resolve -Currently Extubated and doing well overall on OR -Pulmonology on board and Appreciate Reccs Toxic encephalopathy -Alert but not oriented -Head Ct negative for acute abnormality -continue monitor for improved Acute on chronic renal failure stage 4 with hypernatremia -nephrology consulted. Appreciated recommendations -currently on D5W. -sodium is elevated today, patient now on free water flushes as well Schizophrenia -on home medication Alzheimer's dementia -Restart Home medication History of hypertension -Will monitor Anemia likely of chronic disease -Will monitor closely. Dispo: Pending clinical improvement. Transfer to the Regular Floor. Discharge Plan: Home Plan to discharge in: Greater than 2 days - Code Status/Comfort Care Code Status Assessed: Yes Critical Care: No
--- NOTE | 2019-09-05 16:16 | PN ---
Date of Progress Note: 09/05/2019 Subjective: Patient was admitted with hypernatremia, acute kidney injury, patient recovering. Physical Examination: Vital Signs: Blood pressure 116/66, pulse of 66, afebrile. Patient had good urine output of 1300. Chest: Clear to auscultation. Heart: S1, S2. Regular. Abdomen: Soft, nontender. Extremities: +1 edema. Laboratory Data: WBC 10.2, H and H 10.5/31.8, platelets 104. Sodium 149, potassium 3.8, bicarb 27, BUN 22, creatinine 1.1, calcium 7.3, phos 1.8, magnesium 2.5, albumin 1.2, corrected calcium is 9.7. Current Medications: Vancomycin, Atarax, breathing treatment, Tylenol, gabapentin, haloperidol, Lasix was started 40 daily, breathing treatment Zofran , D5 at 75/hour. It was started yesterday. Assessment And Plan: 1. Acute kidney injury secondary to prerenal, recovered, resolved, currently on the wet side. I again agreed with current Lasix dose. We will decrease IV fluid to 50 per hour and will give extra dose of Lasix today, then we will monitor. 2. Hypertension, currently hypotension marginally. We will monitor closely. 3. Hypophosphatemia. We will supplement. 4. Hypernatremia secondary to depletion. Sodium is trending down. We will follow up after the Lasix. 5. Altered mental status, recovering. 6. Hypokalemia. We will supplement. BEATRICE Voice ID: [id number] Report ID: [id number]
[2019-09-05] MEDS: DONEPEZIL HCL 5 MG TAB PO SCH (21:48)
[2019-09-06] MEDS: ALBUTEROL 2.5 MG/3 ML NEB SOL NEB SCH ×4 (02:00→20:00)
[2019-09-06] MEDS: IPRATROPIUM BROM 0.5MG/2.5ML NEB SCH ×4 (02:00→20:00)
[2019-09-06 04:16] LABS: HBsAG Nonreactive (Nonreactive)
[2019-09-06 06:19] LABS: Absolute Lymphocytes (CBC) 1.2 K/uL (0.7-4.9); Basophils % 0.7 % (0-1.3); Lymphocytes % 11.7 % (15.3-44.8); MPV 10.5 fL (7.6-11.3); RBC Red Blood Cell Count 3.43 M/uL (4.33-5.43)
[2019-09-06 06:23] LABS: Albumin 1.6 g/dL (3.4-5.0); Magnesium 2.4 mg/dL (1.8-2.4); Potassium 4.3 mmol/L (3.5-5.1)
[2019-09-06] MEDS: THIAMINE 200 MG/2 ML INJ IVP SCH (08:43)
[2019-09-06] MEDS: HEPARIN 5000 UNIT/ML 1 ML VIAL SQ SCH (08:43)
[2019-09-06] MEDS: ESCITALOPRAM 20 MG TAB PO SCH (08:43)
[2019-09-06] MEDS: FAMOTIDINE 20 MG/2 ML VIAL IV SCH (08:43)
[2019-09-06] MEDS: BENZTROPINE 1 MG TAB PO SCH ×2 (08:43→21:13)
[2019-09-06] MEDS: POTASSIUM CL SA 10 MEQ TAB PO SCH (08:43)
[2019-09-06] MEDS: QUETIAPINE 100MG TAB PO SCH ×2 (08:44→21:13)
[2019-09-06] MEDS: GABAPENTIN 100 MG CAP PO SCH (08:44)
[2019-09-06] MEDS: FUROSEMIDE 40 MG TABLET PO SCH (08:44)
[2019-09-06] MEDS: DIVALPROEX NA 125 MG CAP PO SCH ×2 (08:44→21:12)
[2019-09-06] MEDS: JUVEN PACKET PO SCH ×2 (08:45→21:13)
[2019-09-06] MEDS: CALCIUM CARB 500MG/VIT D 200 IU TAB PO SCH (08:45)
[2019-09-06] MEDS: MAGNESIUM OXIDE 400 MG TAB PO SCH (08:45)
[2019-09-06] MEDS ORDERED: POTASS/SODIUM PHOSPHATE 1 PKT POWD.PACK PO SCH (09:00)
[2019-09-06] MEDS ORDERED: POTASSIUM PHOS IN 0.9 % NACL 15 MMOL/250 ML BAG IV ONE (09:00)
--- NOTE | 2019-09-06 09:57 | P.PN ---
Date of Service: 09/06/19 Spoke to nurse is at [facility]. He is in the Alzheimer's unit which is a lock-down unit. Apparently he eats a pureed diet. He tends to make a grunting sound whenever he is eating. He has been pocketing his food according to the nurses. He does have a consolidated pneumonia in the right middle lobe as well as a right lower lobe. This is most likely related to aspiration. Patient also has some cirrhotic changes and will go ahead and check his LFTs. At this time patient is clinically improving but he is not really able to follow commands for a swallow study. I believe just looking through his history he will benefit from a feeding tube. I did speak to the son who is is in agreement that if he needs it to go ahead and proceed with a PEG tube. I will Consul GI, Dr. Lawrence for PEG tube placement. Patient's albumin is very low. The nurses state that he has been swelling quite a bit so he is probably 3rd spacing because of the low albumin which may be related to his poor nutrition. Will check a pre-albumin as well. However and his current clinical setting I think the placement of a PEG tube would be more beneficial bolus the family wants to proceed with hospice care which they do not. - Date of Service Date of Service: 09/06/19 - Subjective Subjective: No new changes, Demented - Vital Signs Temp Pulse Resp BP Pulse Ox 99.9 F 80 18 101/61 95 09/06/19 10:19 09/06/19 12:04 09/06/19 08:00 09/06/19 12:09/06/19 08:00 - Physical Exam HEENT: Head atraumatic, normocephalic Lungs: Other (Bilateral lower lobe rhonchi) Heart: Normal heart sounds Abdomen: Soft, Bowel sounds are normal with no guarding Extremities: No leg edema - Studies Microbiology Data (last 24 hrs): 09/02/19 17:51 Sputum Gram Stain - Final - Problems (Diagnosis) (1) Consolidation of right lower lobe of lung Current Visit: Yes Status: Acute (2) Alzheimer's dementia Current Visit: Yes Status: Acute (3) At high risk for malnutrition Current Visit: Yes Status: Acute (4) Hypoalbuminemia Current Visit: Yes Status: Acute (5) Edema due to hypoalbuminemia Current Visit: Yes Status: Acute (6) Dysphagia causing pulmonary aspiration with swallowing Current Visit: Yes Status: Acute (7) Septic shock Current Visit: Yes Status: Acute - Assessment and Plan 1. Continue with IV antibiotics 2. GI consultation for PEG tube placement; spoke with family regarding this 3. Repeat chest x-ray 4. Range of motion exercises with physical therapy 5. Appreciate pulmonary consultation 6. Continue with nebs as needed 7. O2 per protocol 8. Continue with gentle hydration 9. Repeat labs including CBC and renal function in a.m. 10. May need some gentle diuresing as patient has 3rd spaced 11. Increase protein supplementation through NG tube 12. Free water through NG tube to assist with hypernatremia 13. Aspiration precautions 14. GI and DVT prophylaxis - Discharge Plan Discharge Plan: Half-Way Plan to discharge in: Greater than 2 days - Code Status/Comfort Care Code Status: Full Code - Physician Review Critical Care: No Time Spent Managing Pts Care (In Minutes): 45
[2019-09-06 10:44] LABS: Protime INR 1.27
[2019-09-06 11:12] LABS: Albumin 1.5 g/dL (3.4-5.0); Bilirubin Direct 0.4 mg/dL (0-0.2); Bilirubin Total 0.7 mg/dL (0.2-1.0); Prealbumin 5.5 mg/dL (20-40); Protein, Total 5.2 g/dL (6.4-8.2)
[2019-09-06 11:25] LABS: Urine Appearance CLEAR; Urine Bilirubin NEGATIVE (NEG); Urine Blood 2+ (NEG); Urine Color YELLOW; Urine Glucose NEGATIVE (NEG); Urine Protein NEGATIVE (NEG); Urine Urobilinogen 0.2 mg/dL (0.2-1.0)
[2019-09-06 11:35] LABS: Urine Microscopic Reflex ORDER UMIC
--- NOTE | 2019-09-06 11:51 | RAD REPORT ---
EXAM DESCRIPTION: CT - Head Brain Wo Cont - 09/06/2019 11:40 am CLINICAL HISTORY: Alteration of awareness/confusion COMPARISON: None TECHNIQUE: Computed axial tomography of the head was obtained. IV contrast was not requested. All CT scans are performed using dose optimization technique as appropriate and may include automated exposure control or mA/KV adjustment according to patient size. FINDINGS: An intracranial bleed is not seen . The ventricles are normal in caliber. No extra-axial fluid collection is noted. Moderate cerebral atrophy. Empty sella turcica is present Mild low-density areas within periventricular deep white matter may represent ischemic changes second edilberto small vessel disease IMPRESSION: No acute intracranial abnormality is seen. If patient's symptoms persist MRI of the bra in would be recommended.
[2019-09-06 12:09] LABS: Urine Bacteria <20 /HPF (NONE SEEN)
[2019-09-06 12:10] LABS: Urine Culture Reflex Order REFLEXED
--- NOTE | 2019-09-06 19:31 | PN ---
Date of Progress Note: 09/06/2019 Subjective: Patient was admitted with the altered mental status. Today, patient completely sleepy. Patient had hypernatremia, has been improved. Physical Examination: Vital Signs: Blood pressure 101/61, pulse of 80, afebrile. Patient had good urine output of 1250, e elizabeth balance. Chest: Crackles bilateral base. Heart: S1, S2 regular. Abdomen: Soft, nontender. Extremities: +2 edema. Laboratory Data: WBC 10.3, H and H 10.5/30.1, platelets 126. Sodium 149, potassium 4.3, bicarb 29, BUN 21, creatinine 0.9, calcium 7.6, phosphorus of 2, magnesium of 2.4. Current Medications: The patient is on include: 1.Vancomycin. 2.Atarax. 3.Albumin. 4.Calcium carbonate. 5.Tylenol. 6.Gabapentin. 7.Citalopram. 8.Lasix 40 daily. 9.Pepcid. 10.Zofran. Assessment And Plan: 1.Acute kidney injury secondary to prerenal, recovered, resolved. 2.Hypernatremia. I am going to continue diuresis. We will continue free water. 3.Failure to thrive. Follow up with the primary. Plan for PEG tube. 4.Decubitus ulcer with bacteremia, gram negative. I am going to continue current antibiotic. Will follow up with the primary. 5.Hypophosphatemia, stable. No need for supplement. 6.Altered mental status. I am going to go ahead and discontinue Neurontin for the time being. BEATRICE Voice ID: [id number] Report ID: [id number]
[2019-09-06] MEDS: DONEPEZIL HCL 5 MG TAB PO SCH (21:13)
[2019-09-07] MEDS: ALBUTEROL 2.5 MG/3 ML NEB SOL NEB SCH ×4 (01:15→21:00)
[2019-09-07] MEDS: IPRATROPIUM BROM 0.5MG/2.5ML NEB SCH ×4 (01:15→21:00)
[2019-09-07] MEDS: LEVOTHYROXINE SODIUM 100 MCG VIAL IV SCH (05:57)
[2019-09-07 06:12] LABS: Absolute Lymphocytes (CBC) 1.4 K/uL (0.7-4.9); Albumin 1.5 g/dL (3.4-5.0); Basophils % 0.4 % (0-1.3); Hematocrit 31.5 % (39.6-49.0); Lymphocytes % 13.6 % (15.3-44.8); MPV 9.7 fL (7.6-11.3); Magnesium 2.3 mg/dL (1.8-2.4); Phosphorus 3.1 mg/dL (2.5-4.9); Potassium 4.8 mmol/L (3.5-5.1); RBC Red Blood Cell Count 3.48 M/uL (4.33-5.43); Uric Acid 5.5 mg/dL (3.5-7.2)
[2019-09-07 08:56] LABS: Blood Morphology Comment NOT SEEN (NOT SEEN); Platelet Estimate ADEQ
[2019-09-07] MEDS: POTASSIUM CL SA 10 MEQ TAB PO SCH (09:00)
[2019-09-07] MEDS: FUROSEMIDE 40 MG TABLET PO SCH (09:00)
[2019-09-07] MEDS: BENZTROPINE 1 MG TAB PO SCH ×2 (09:00→21:00)
[2019-09-07] MEDS: DIVALPROEX NA 125 MG CAP PO SCH ×2 (09:00→21:00)
[2019-09-07] MEDS: MAGNESIUM OXIDE 400 MG TAB PO SCH (09:00)
[2019-09-07] MEDS: ESCITALOPRAM 20 MG TAB PO SCH (09:00)
[2019-09-07] MEDS: CALCIUM CARB 500MG/VIT D 200 IU TAB PO SCH (09:00)
[2019-09-07] MEDS: JUVEN PACKET PO SCH ×2 (09:00→21:00)
[2019-09-07] MEDS: QUETIAPINE 100MG TAB PO SCH ×2 (09:00→21:00)
[2019-09-07] MEDS: FAMOTIDINE 20 MG/2 ML VIAL IV SCH (09:53)
[2019-09-07] MEDS: THIAMINE 200 MG/2 ML INJ IVP SCH (09:53)
[2019-09-07] MEDS: D5W 1,000 ML IV SCH (11:29)
[2019-09-07] MEDS ORDERED: CEFTRIAXONE 1 GM/NS 50 ML 1 GM/50 ML BAG IV ONE (12:26)
[2019-09-07] MEDS: CEFTRIAXONE/SWI 1gm 1 GM/10 ML SYR IV SCH ×2 (13:11→21:00)
--- NOTE | 2019-09-07 15:55 | PN ---
Date of Progress Note: 09/07/2019 Subjective: The patient was admitted with altered mental status, acute kidney injury, hypernatremia. The patient had UTI. Physical Examination: Vital Signs: When I saw the patient, blood pressure 122/65, pulse of 104, afebrile. Patient had goo d urine output of 1700. Chest: Decreased entry at bilateral base. Heart: S1, S2. Regular. Abdomen: Soft, nontender. Extremities: +2 edema. Laboratory Data: WBC 10.6, H and H 10.7/31.5, platelets 186. Sodium 150, potassium 4.8, bicarb 27, BUN 21, creatinine 1, calcium 7.7, uric acid 5.5. Phosphorus 3.1, magnesium 2.3. TSH 6.5. Current Medications: The patient on its include: 1.Vancomycin. 2.Hydralazine p.r.n. 3.Aricept. 4.Calcium carbonate. 5.Tylenol. 6.Citalopram. 7.Haloperidol. 8.Lasix 40 daily. 9.Pepcid. 10.Zofran. 11.Levothyroxine. 12.Magnesium oxide. Assessment And Plan: 1.Acute kidney injury secondary to prerenal, recovered, resolved. 2.Hypernatremia secondary to malnourished, poor intake. I am going to go ahead and start the patien t on D5. We will continue on the Lasix. 3.Edema, multifactorial, secondary to malnourished and secondary to renal failure. I am going to co ntinue diuresis. 4.Urinary tract infection. Continue current antibiotic. We will follow up with the primary. 5.Hypothyroidism, started on supplement. 6.Hypomagnesemia, status post supplement. 7.Secondary hyperparathyroidism. No need for calcitriol for the time being. BEATRICE Voice ID: [id number] Report ID: [id number]
[2019-09-07] MEDS ORDERED: PROPOFOL 200 MG/20 ML VIAL IV ONE (19:36)
[2019-09-07] MEDS ORDERED: LIDOCAINE 1% MPF 5 ML VIAL ONE (19:37)
--- NOTE | 2019-09-07 20:34 | ENDO RPT ---
[address], [address] EGD WITH PEG PROCEDURE REPORT EXAM DATE: 09/07/2019 PATIENT NAME: Francisco Recio MR #: [id number] BIRTHDATE: 1950 ATTENDING: Eber Lawrence Dr STATUS: outpatient CRUSHER SCREEN REPAIRER: Elizabeth Somers and Joanna Segundo RN INDICATIONS: The patient is a 69 yr old Male here for an EGD with PEG due to dysphagia, probable aspiration pneumonia with resolving sepsis on therapy PROCEDURE PERFORMED: EGD with PEG placement EGD with biopsy MEDICATIONS: Per Anesthesia. TOPICAL ANESTHETIC: none CONSENT: The patient understands the risks and benefits of the procedure and understands that these risks include, but are not limited to: sedation, allergic reaction, infection, perforation and/or bleeding. Alternative means of evaluation and treatment include, among others: physical exam, x-rays, and/or surgical intervention. The patient elects to proceed with this endoscopic procedure. DESCRIPTION OF PROCEDURE: During intra-op preparation period all mechanical medical equipment was checked for proper function. Hand hygiene and appropriate measures for infection prevention was taken. After the risks, benefits and alternatives of the procedure were thoroughly explained, Informed consent was verified, confirmed and timeout was successfully executed by the treatment team. The patient was anesthetized with topical anesthesia and the EG-2990i ([id number]) and Pentax EG-2990i ([id number]) endoscope was introduced through the mouth and advanced to the second portion of the duodenum. The instrument was slowly withdrawn as the mucosa was fully examined. Severe Atrophic gastritis was found in the total stomach. Multiple biopsies were obtained and sent to pathology. A mass was found in the antrum. Multiple biopsies were obtained and sent to pathology. The stomach was then inflated with air, and by a combination of transillumination and manual palpation, the site for the gastrostomy tube placement was selected and marked on the anterior abdominal wall. The skin of the anterior abdomen was surgically prepped and draped with sterile towels. Utilizing strict sterile technique, the selected site was then anesthetized with 1% xylocaine by injection into the skin and subcutaneous tissue. A 1 cm incision was made through the skin and subcutaneous tissue, and the needle/cannula assembly was then passed through the abdominal wall and through the anterior wall of the stomach, maintaining visualization with the endoscope. A snare device previously placed through the instrument channel was then opened and placed around the cannula, the needle was removed, and the insertion wire was passed through the cannula and into the stomach lumen. The snare was then loosened from the cannula, and repositioned to snare the insertion wire. The snare was then pulled up to the endoscope distal tip, and the scope was then withdrawn bringing with it the snare and insertion wire. The insertion wire was then released from the snare, and the PEG PUSH gastrostomy tube placed over the guidewire. Using the push technique, the tube was then pushed into place over the insertion wire at the abdominal wall end. The tube insertion site was then cleansed once again, and the external bolster was placed over the tube to secure it to the abdominal wall. A sterile dressing was then applied, and the procedure terminated. Retroflexed views revealed no abnormalities. The gastroscope was then slowly withdrawn and removed. ADVERSE EVENT: There were no complications. IMPRESSIONS: 1. Status post 20 Fr percutaneous endoscopic gastrostomy tube 2. Severe atrophic gastritis in the total stomach, s/p biopsies 3. Large 3 X 4 cm flat mass at the antrum/angulus posteriorly, s/p biopsies -> probable gastric cancer RECOMMENDATIONS: 1. await biopsy results 2. acid suppression therapy 3. CT scan 4. begin PEG use in 3 hours 5. oncology consult when pathology confirms gastric neoplasia REPEAT EXAM: Eber Lawrence Dr eSigned: Eber Lawrence Dr 09/07/2019 8:33 PM cc: CPT CODES: ICD9 CODES: PATIENT NAME: Francisco Recio MR#: [id number]
[2019-09-07] MEDS: DONEPEZIL HCL 5 MG TAB PO SCH (21:00)
[2019-09-07] MEDS ORDERED: CEFTRIAXONE 1 GM/NS 50 ML 1 GM/50 ML BAG IV SCH (21:00)
[2019-09-07] MEDS ORDERED: FUROSEMIDE 40 MG/4 ML VIAL IV ONE (21:55)
--- NOTE | 2019-09-07 22:27 | RAD REPORT ---
EXAM DESCRIPTION: RAD - Chest Single View - 09/07/2019 10:20 pm CLINICAL HISTORY: TACHYPNEA Chest pain. COMPARISON: Chest Single View dated 09/03/2019; Chest Single View dated 09/02/2019 FINDINGS: Portable technique limits examination quality. The lungs are underinflated with atelectasis in both lung bases. The heart is upper limit normal in s ize. No displaced fractures. IMPRESSION: Underinflated lungs.
[2019-09-08] MEDS: ALBUTEROL 2.5 MG/3 ML NEB SOL NEB SCH ×4 (01:05→20:00)
[2019-09-08] MEDS: IPRATROPIUM BROM 0.5MG/2.5ML NEB SCH ×4 (01:05→20:00)
[2019-09-08] MEDS: LEVOTHYROXINE SODIUM 100 MCG VIAL IV SCH (05:29)
[2019-09-08 05:57] LABS: Albumin 1.5 g/dL (3.4-5.0); Phosphorus 3.5 mg/dL (2.5-4.9); Potassium 4.3 mmol/L (3.5-5.1)
--- NOTE | 2019-09-08 07:20 | P.PN ---
Date of Service: 09/07/19 - Subjective Subjective: No new changes, Demented PEG tube has been placed. Will start tube feeds in a.m.. Can probably go back to [facility] after tube feeds initiated and if patient tolerates them - Vital Signs reviewed - Physical Exam HEENT: Head atraumatic, normocephalic Lungs: Other (Bilateral lower lobe rhonchi) Heart: Normal heart sounds Abdomen: Soft, Bowel sounds are normal with no guarding; PEG tube in place Extremities: No leg edema - Studies Microbiology Data (last 24 hrs): 09/02/19 17:51 Sputum Gram Stain - Final - Problems (Diagnosis) (1) Consolidation of right lower lobe of lung Current Visit: Yes Status: Acute (2) Alzheimer's dementia Current Visit: Yes Status: Acute (3) At high risk for malnutrition Current Visit: Yes Status: Acute (4) Hypoalbuminemia Current Visit: Yes Status: Acute (5) Edema due to hypoalbuminemia Current Visit: Yes Status: Acute (6) Dysphagia causing pulmonary aspiration with swallowing Current Visit: Yes Status: Acute (7) Septic shock Current Visit: Yes Status: Acute - Assessment and Plan 1. Continue with IV antibiotics 2. GI consultation for PEG tube placement; appreciate their asst 3. Continue with abx for Haemophilis influenza and Proteus mirabilis 4. Range of motion exercises with physical therapy 5. Appreciate pulmonary consultation 6. Continue with nebs as needed 7. O2 per protocol 8. Continue with gentle hydration 9. Repeat labs including CBC and renal function in a.m. 10. May need some gentle diuresing as patient has 3rd spaced 11. Increase protein supplementation 12. Free water through NG tube to assist with hypernatremia 13. Aspiration precautions 14. GI and DVT prophylaxis - Discharge Plan Discharge Plan: Jail Plan to discharge in: Greater than 2 days - Code Status/Comfort Care Code Status: Full Code - Physician Review Critical Care: No Time Spent Managing Pts Care (In Minutes): 35
[2019-09-08] MEDS: FAMOTIDINE 20 MG/2 ML VIAL IV SCH (09:00)
[2019-09-08] MEDS: CEFTRIAXONE/SWI 1gm 1 GM/10 ML SYR IV SCH ×2 (09:00→22:30)
[2019-09-08] MEDS: MAGNESIUM OXIDE 400 MG TAB PO SCH (09:00)
[2019-09-08] MEDS: FUROSEMIDE 40 MG TABLET PO SCH (09:00)
[2019-09-08] MEDS: CALCIUM CARB 500MG/VIT D 200 IU TAB PO SCH (09:00)
[2019-09-08] MEDS ORDERED: NA CHLORIDE 0.9% 500 ML IV ONE (10:12)
[2019-09-08] MEDS: DIVALPROEX NA 125 MG CAP PO SCH ×2 (10:51→22:30)
[2019-09-08] MEDS: POTASSIUM CL SA 10 MEQ TAB PO SCH (10:52)
[2019-09-08] MEDS: QUETIAPINE 100MG TAB PO SCH ×2 (10:52→22:31)
[2019-09-08] MEDS: ESCITALOPRAM 20 MG TAB PO SCH (10:54)
[2019-09-08] MEDS: THIAMINE 200 MG/2 ML INJ IVP SCH (11:02)
[2019-09-08] MEDS: BENZTROPINE 1 MG TAB PO SCH ×2 (11:03→22:33)
[2019-09-08] MEDS: D5W 1,000 ML IV SCH ×2 (11:04→12:40)
[2019-09-08] MEDS: JUVEN PACKET PO SCH (11:05)
--- NOTE | 2019-09-08 12:51 | P.PN ---
Subjective Date of Service: 09/08/19 Primary Care Provider: [facility] physician Chief Complaint: Respiratory failure and septic shock Subjective: No new changes, NPO (s/p peg tube placed yesterday -still lethargic -staff report low bp this am) Review of Systems is unable to be obtained Physical Examination - Vital Signs Temperature: 98.2 F Blood Pressure: 89/56 Pulse: 69 Respirations: 18 Pulse Ox (%): 97 - Physical Exam General: Delirious HEENT: Atraumatic, PERRLA Neck: JVD not distended, No Thyromegaly Respiratory: Crackles/rales (b/l bases ) Cardiovascular: Regular rate/rhythm, Normal S1 S2, Edema (1= b/l ) Gastrointestinal: Normal bowel sounds (peg tube insitu ) Neurological: Abnormal affect - Studies Microbiology Data (last 24 hrs): 09/02/19 17:51 Sputum Gram Stain - Final 09/02/19 17:51 Sputum Culture & Sensitivity - Final Haemophilus Parainfluenza Iii Medications List Reviewed: Yes Assessment And Plan - Current Problems (Diagnosis) (1) Hypernatremia Current Visit: Yes Status: Acute (2) Alzheimer's dementia Current Visit: Yes Status: Acute (3) At high risk for malnutrition Current Visit: Yes Status: Acute (4) Consolidation of right lower lobe of lung Current Visit: Yes Status: Acute (5) Dysphagia causing pulmonary aspiration with swallowing Current Visit: Yes Status: Acute (6) Edema due to hypoalbuminemia Current Visit: Yes Status: Acute (7) Hypoalbuminemia Current Visit: Yes Status: Acute (8) Septic shock Current Visit: Yes Status: Acute Physician Review Additional Text: # Right lower lobe aspiration pna - s/p peg tube placed now -c/w npo status - c/w abx for hemophilus sp pna - wbc trending down -still low bp and high oxygen need at 3 L , follow with diuresis # Proteus bacteremia - on ceftriaxone , repeat cx neg till date - can c/w abx with omnicef at discharge # Hypotension - may be due to sepsis - start midodrine # Resp failure - due to pna and pulm, edema from low albumin - follow with diuresis # Hypernatremia - start free water via PEG TUBE 300CC Q8H # Dementi with dysphagia and malnutrition risk - start tube feeding today # Dispo - possible transfer to [place] in am if tolerating tube feeding
[2019-09-08] MEDS ORDERED: JEVITY 1.5 CAL LIQUID 1,000 ML BOT RTH SCH (13:00)
--- NOTE | 2019-09-08 13:15 | P.PN ---
Subjective Date of Service: 09/08/19 Primary Care Provider: senior care physician Chief Complaint: Respiratory failure and septic shock Subjective: No new changes Pt admitted with AMS, and hypernatremia, have bacteremia today Bp borderline still have edmema Cont lasix add midodrine and albumin cont D5w Physical Examination - Vital Signs Temperature: 98.2 F Blood Pressure: 89/56 Pulse: 69 Respirations: 18 Pulse Ox (%): 97 - Physical Exam General: Alert, Other (not oriented ) HEENT: Atraumatic Neck: Supple, Without JVD or thyroid abnormality Respiratory: Clear to auscultation bilaterally, Crackles/rales Cardiovascular: Regular rate/rhythm, Normal S1 S2, No gallops, No rubs, Edema Gastrointestinal: Normal bowel sounds Musculoskeletal: Swelling Urinary: Lynn catheter - Studies Microbiology Data (last 24 hrs): 09/02/19 17:51 Sputum Gram Stain - Final 09/02/19 17:51 Sputum Culture & Sensitivity - Final Haemophilus Parainfluenza Iii Medications List Reviewed: Yes Assessment And Plan - Plan Acute kidney injury secondary to prerenal, Cr today mildly elevated will cont to monitor Hypernatremia due to poor oral intake Cont D5w Edema due to chf, low albumin and hypothyrodism cont lasix and Iv synthroid bacteremia Cont Abx hypotension will start albumin and midodrine prognosis guarded
[2019-09-08] MEDS: MIDODRINE HCL 5 MG TABLET FT SCH ×2 (14:00→21:00)
[2019-09-08] MEDS: FUROSEMIDE 40 MG/4 ML VIAL IV SCH (18:35)
[2019-09-08] MEDS: DONEPEZIL HCL 5 MG TAB PO SCH (22:34)
[2019-09-09] MEDS: ALBUTEROL 2.5 MG/3 ML NEB SOL NEB SCH ×2 (01:38→07:18)
[2019-09-09] MEDS: IPRATROPIUM BROM 0.5MG/2.5ML NEB SCH ×2 (01:38→07:18)
[2019-09-09] MEDS: LEVOTHYROXINE SODIUM 100 MCG VIAL IV SCH (05:45)
[2019-09-09 06:22] LABS: Albumin 1.5 g/dL (3.4-5.0); Bilirubin Total 0.4 mg/dL (0.2-1.0); Potassium 4.2 mmol/L (3.5-5.1)
[2019-09-09 06:33] LABS: Absolute Lymphocytes (CBC) 1.2 K/uL (0.7-4.9); Basophils % 0.2 % (0-1.3); Hematocrit 31.3 % (39.6-49.0); Lymphocytes % 11.6 % (15.3-44.8); MPV 9.6 fL (7.6-11.3); RBC Red Blood Cell Count 3.48 M/uL (4.33-5.43)
[2019-09-09 07:34] VITALS: O2SAT 97
[2019-09-09] MEDS: CALCIUM CARB 500MG/VIT D 200 IU TAB PO SCH (09:00)
[2019-09-09] MEDS: MIDODRINE HCL 5 MG TABLET FT SCH (09:00)
--- NOTE | 2019-09-09 09:15 | P.DS ---
Admission Date: 09/02/19 Discharge Date: 09/09/19 Primary Care Provider: [facility] physician Disposition: TRANSFER TO HALF-WAY Discharge Condition: FAIR Reason for Admission: Respiratory failure and septic shock - Problems (1) Hypernatremia Current Visit: Yes Status: Acute (2) Alzheimer's dementia Current Visit: Yes Status: Acute (3) At high risk for malnutrition Current Visit: Yes Status: Acute (4) Consolidation of right lower lobe of lung Current Visit: Yes Status: Acute (5) Dysphagia causing pulmonary aspiration with swallowing Current Visit: Yes Status: Acute (6) Edema due to hypoalbuminemia Current Visit: Yes Status: Acute (7) Hypoalbuminemia Current Visit: Yes Status: Acute (8) Septic shock Current Visit: Yes Status: Acute Brief History of Present Illness: History of Present Illness: 69-year-old male with history of Alzheimer's dementia, schizophrenia, hypertension and chronic renal disease. [facility] from [facility]. Most of the information came from the ER physician. ER reports that the patient was having fever and confusion at the prison. EMS was called. Patient was altered and having respiratory distress. Blood pressure was low. Patient was intubated in the field. 1 L bolus was given. By the time the patient arrived to the ER patient was stabilized. Patient was started on vancomycin and cefepime. Sepsis protocol initiated. 2 L have been given with improvement of blood pressure and heart rate. Initial T-max was 101.3. Patient now stable. Lab shows white count 12.6, hemoglobin 11.8. Platelet count of 72. Sodium 151, potassium 5.1, BUN of 55, creatinine 3.05 with a GFR of 21. Glucose 135. Pro calcitonin elevated at 16. Lactic acid elevated at 3.8. Troponin 0.04. BNP 1320. Urinalysis was positive for bacteria. Blood gases appeared stable intubated with a pH is 7.35. CT head and neck unremarkable for acute findings. CT chest and abdomen pending at this time. No significant EKG changes noted. Chest x-ray shows possible right lower lobe pneumonia. Patient has remained stable. Patient will go to the ICU. I was able to discuss medical plan of care with on the phone. She reports patient has been doing well. Only issues of Alzheimer's dementia, schizophrenia and chronic renal disease has been noted. [facility] has been at the prison since 2017. Hospital Course: partient with admitted for acute resp failure , he was also noted with acute renal failure ,s ever hypoalbuminemia , proteus bacteremia and hemophilus prainfluenze sp on sputum culture . He was comnaged with renal and pulmonary team . He was developed intermittent hypotension after started on diuresis with subsequent requirement for Midodrine . He was noted with aspiration to po intake and right lobar pneumonia . He had a peg tube placement done and started on Jevity for tube feeding which he was tolerating at 60 mls /hr - His vitals has stablized . his resp distress is improving with lasix diuresis and flet to be due to pna with associated fluid overload from low albumin . he will continue on this regime including abx for next 7 days . His lasix can be tapered after achieving euvolemic status . his renal fucntion has improved to cr of 1.19 today Vital Signs/Physical Exam: Temp Pulse Resp BP Pulse Ox 97.5 F 76 18 92/57 L 97 09/09/19 04:00 09/09/19 04:00 09/09/19 04:00 09/09/19 04:00 09/09/19 04:00 General: Alert, Demented, Confused HEENT: Atraumatic, Normocephalic, PERRLA Neck: Supple, 2+ carotid pulse no bruit Respiratory: Diminished, Crackles/rales (improving ) Cardiovascular: Normal pulses, Regular rate/rhythm, Normal S1 S2, Edema (1-2 + improving ) Gastrointestinal: Normal bowel sounds, No ascites (peg tube insitu ), No tenderness Musculoskeletal: No clubbing, No contractures Neurological: Dementia (non verbal but openes eyes and tracks ) Laboratory Data at Discharge: WBC 10.3 K/uL (4.3-10.9) 09/09/19 05:44 Hgb 10.4 g/dL (13.6-17.9) L 09/09/19 05:44 Hct 31.3 % (39.6-49.0) L 09/09/19 05:44 Plt Count 258 K/uL (152-406) D 09/09/19 05:44 PT 14.8 SECONDS (9.5-12.5) H 09/06/19 10:15 INR 1.27 09/06/19 10:15 APTT 34.8 SECONDS (24.3-36.9) 09/06/19 10:15 Sodium 147 mmol/L (136-145) H 09/09/19 05:44 Potassium 4.2 mmol/L (3.5-5.1) 09/09/19 05:44 BUN 31 mg/dL (7-18) H 09/09/19 05:44 Creatinine 1.19 mg/dL (0.55-1.3) 09/09/19 05:44 Glucose 157 mg/dL (74-106) H 09/09/19 05:44 Uric Acid 5.5 mg/dL (3.5-7.2) D 09/07/19 05:42 Phosphorus 3.5 mg/dL (2.5-4.9) 09/08/19 05:26 Magnesium 2.3 mg/dL (1.8-2.4) 09/07/19 05:42 Total Bilirubin 0.4 mg/dL (0.2-1.0) 09/09/19 05:44 AST 90 U/L (15-37) H 09/09/19 05:44 ALT 16 U/L (12-78) 09/09/19 05:44 Alkaline Phosphatase 689 U/L (45-117) H 09/09/19 05:44 Troponin I 0.02 ng/mL (0.0-0.045) 09/03/19 06:00 Triglycerides 133 mg/dL (<150) 09/03/19 06:00 Cholesterol 66 mg/dL (<200) 09/03/19 06:00 HDL Cholesterol 14 mg/dL (40-60) L 09/03/19 06:00 Cholesterol/HDL Ratio 4.71 09/03/19 06:00 Home Medications: Acetaminophen 2 tab PO Q4HP PRN 09/02/19 Benztropine Mesylate 0.5 mg PO BID 09/02/19 Calcium Carbonate/Vitamin D3 [Oscal 500 + Vit D 200 Iu Tab*] 1 tab PO DAILY Divalproex Sodium [Depakote Sprinkle] 6 cap PO BID 09/02/19 Donepezil HCl 2 tab PO BEDTIME 09/02/19 Escitalopram Oxalate 1 tab PO DAILY 09/02/19 Gabapentin 1 cap PO TID 09/02/19 Hydrocortisone Cream [Hydrocortisone 1% Cream*] 1 ward TOP Q12HP PRN 09/02/19 Magnesium Hydroxide [Milk of Magnesia] 30 ml PO Q12H PRN 09/02/19 Magnesium Oxide 400 mg PO DAILY 09/02/19 Potassium Chloride 1 tab PO DAILY 09/02/19 Quetiapine Fumarate [Seroquel] 1 tab PO DAILY 09/02/19 Quetiapine Fumarate [Seroquel] 400 mg PO BEDTIME 09/02/19 hydrOXYzine pamoate [Hydroxyzine Pamoate] 25 mg PO Q6HP PRN 09/02/19 Cefdinir [Omnicef] 300 mg PO BID #14 capsule 09/09/19 Furosemide [Lasix Oral Venessa] 40 mg OSTOMY BID #120 solution 09/09/19 Ipratropium Neb [Atrovent*] 0.5 mg NEB [id number] amp 09/09/19 Jevity 1.5 Cooper Liquid 30 ml OSTOMY CONT bot 09/09/19 Levothyroxine Sodium [Synthroid] 0.1 mg PO DAILY #30 tablet 09/09/19 Midodrine HCl [Proamatine*] 10 mg FT TID #90 tab 09/09/19 New Medications: Cefdinir [Omnicef] 300 mg PO BID #14 capsule Furosemide [Lasix Oral Venessa] 40 mg OSTOMY BID #120 solution Levothyroxine Sodium [Synthroid] 0.1 mg PO DAILY #30 tablet Midodrine HCl [Proamatine*] 10 mg FT TID #90 tab Diet: tube feeding with jevity at 60 mls/ Activity: Bedrest Followup: GENOVEVA NICOLE [OUTSIDE PHYSICIAN] - Time spent managing pt's care (in minutes): 42
[2019-09-09] MEDS: QUETIAPINE 100MG TAB PO SCH (10:31)
[2019-09-09] MEDS: BENZTROPINE 1 MG TAB PO SCH (10:31)
[2019-09-09] MEDS: MAGNESIUM OXIDE 400 MG TAB PO SCH (10:31)
[2019-09-09] MEDS: POTASSIUM CL SA 10 MEQ TAB PO SCH (10:31)
[2019-09-09] MEDS: DIVALPROEX NA 125 MG CAP PO SCH (10:31)
[2019-09-09] MEDS: THIAMINE 200 MG/2 ML INJ IVP SCH (10:32)
[2019-09-09] MEDS: ESCITALOPRAM 20 MG TAB PO SCH (10:32)
[2019-09-09] MEDS: CEFTRIAXONE/SWI 1gm 1 GM/10 ML SYR IV SCH (10:32)
[2019-09-09] MEDS: FAMOTIDINE 20 MG/2 ML VIAL IV SCH (10:32)
[2019-09-09] MEDS: FUROSEMIDE 40 MG/4 ML VIAL IV SCH (10:33)
[2019-09-09 11:55] LABS: Vitamin D 1,25-Dihydroxy Total 22 pg/mL (18-72); Vitamin D,1,25-OH2, D2 8 pg/mL
[2019-09-09 12:35] VITALS: BP 90/55; TEMP 97.6
--- NOTE | 2019-09-10 06:58 | PN ---
Date of Progress Note: 09/09/2019 Subjective: Patient has multiple medical problems. Patient developed borderline hypotension. He has legs edema. Patient is on diuretic and midodrine and albumin. Review of Systems: Denies fever, chills. Physical Examination: Lungs: Clear to auscultation bilaterally. Heart: S1, S2. Abdomen: Soft, benign. Extremities: Slight edema. Laboratory Data: Hemoglobin 10.4, WBC 10.3, platelet count is 258,000. Chemistry showed sodium 147, potassium 4.2, chloride 114, CO2 of 29, BUN 31, creatinine 1.19, glucose 157. Impression And Plan: 1. Prerenal azotemia, hypernatremia. Continue adequate hydration. Avoid nephrotoxic medication. 2. Hypertension. Continue blood pressure medication. 3. Hypernatremia. Continue D5W for treatment of hypernatremia. 4. Acute kidney injury secondary to prerenal azotemia. Serum creatinine might be elevated. Continue to monitor and check fluid balance and urine output. I spent 36 min including 25 min to coordinate care plan. CLAUDIA Voice ID: [id number] Report ID: [id number] YIN
== END 2019-09-09 12:25 | DRG 871 ==
LOC: ER 17:04 → ERHOLD 19:26 → 3RD-ICU 20:33 → 2ND 09-05 20:20
PROVIDERS: ADMIT Family Medicine; ATTEND Internal Medicine
PROC: 0BH17EZ Insertion of Endotracheal Airway into Trachea, Via Natural or Artificial Opening (ICD-10-PCS; 2019-09-02)
PROC: 5A1945Z Respiratory Ventilation, 24-96 Consecutive Hours (ICD-10-PCS; 2019-09-02)
PROC: 0DH63UZ Insertion of Feeding Device into Stomach, Percutaneous Approach (ICD-10-PCS; 2019-09-07)
PROC: 0DB68ZX Excision of Stomach, Via Natural or Artificial Opening Endoscopic, Diagnostic (ICD-10-PCS; principal; 2019-09-07 12:00)
DX: A41.59 Other Gram-negative sepsis (principal); J69.0 Pneumonitis due to inhalation of food and vomit; R65.21 Severe sepsis with septic shock; G92 Toxic encephalopathy; N17.0 Acute kidney failure with tubular necrosis; J96.00 Acute respiratory failure, unspecified whether with hypoxia or hypercapnia; N39.0 Urinary tract infection, site not specified; N18.4 Chronic kidney disease, stage 4 (severe); E87.0 Hyperosmolality and hypernatremia; C16.9 Malignant neoplasm of stomach, unspecified; E46 Unspecified protein-calorie malnutrition; N25.81 Secondary hyperparathyroidism of renal origin; I12.9 Hypertensive chronic kidney disease with stage 1 through stage 4 chronic kidney disease, or unspecified chronic kidney disease; D69.6 Thrombocytopenia, unspecified; K74.60 Unspecified cirrhosis of liver; R62.7 Adult failure to thrive; G30.9 Alzheimer's disease, unspecified; F02.80 Dementia in other diseases classified elsewhere, unspecified severity, without behavioral disturbance, psychotic disturbance, mood disturbance, and anxiety; F20.9 Schizophrenia, unspecified; D63.8 Anemia in other chronic diseases classified elsewhere; E83.51 Hypocalcemia; E87.6 Hypokalemia; E88.09 Other disorders of plasma-protein metabolism, not elsewhere classified; L89.151 Pressure ulcer of sacral region, stage 1; E83.39 Other disorders of phosphorus metabolism; Z68.29 Body mass index [BMI] 29.0-29.9, adult
CPT/HCPCS: 31500; 36415; 51702; 70450; 71045; 71250; 74176; 76705; 76770; 80048; 80053; 80061; 80069; 80074; 80076; 80202; 80307; 80320; 80329; 81003; 81015; 82140; 82533; 82550; 82553; 82570; 82652; 82805; 83010; 83036; 83605; 83615; 83735; 83880; 83970; 84134; 84145; 84156; 84439; 84443; 84484; 84550; 85025; 85610; 85730; 87040; 87070; 87077; 87086; 87088; 87184; 87186; 87205; 87804; 88305; 88312; 93005; 93306; 94002; 94003; 94640; 96365; 96366; 96367; 96368; 96375; 99291; J0610; J0692; J0696; J1644; J1940; J2250; J2704; J3370; J3411; J7030; J7040; J7060; J7120; J7799; P9047

== ENCOUNTER 2019-09-15 12:09 | Inpatient (IN) | payer OTHER ==
[2019-09-15] MEDS ORDERED: NA CHLORIDE 0.9% 3,000 ML ONE (12:28)
[2019-09-15] MEDS ORDERED: CEFTRIAXONE/SWI 1gm 1 GM/10 ML SYR ONE (12:28)
[2019-09-15 12:39] LABS: Protime INR 1.36
[2019-09-15 12:43] LABS: Absolute Lymphocytes (CBC) 1.2 K/uL (0.7-4.9); Basophils % 0.4 % (0-1.3); Hematocrit 32.2 % (39.6-49.0); Lymphocytes % 6.4 % (15.3-44.8); MPV 10.7 fL (7.6-11.3)
[2019-09-15] MEDS ORDERED: IBUPROFEN 100 MG/5 ML UCUP ONE (12:50)
[2019-09-15 12:54] LABS: ALT/SGPT 16 U/L (12-78); AST/SGOT 128 U/L (15-37); Albumin 1.6 g/dL (3.4-5.0); Alkaline Phosphatase 814 U/L (45-117); BUN Blood Urea Nitrogen 81 mg/dL (7-18); Bicarbonate 31 mmol/L (21-32); Bilirubin Direct 0.7 mg/dL (0-0.2); CKMB Creatine Kinase MB < 1.0 ng/mL (0.3-3.6); Creatine Phosphokinase 360 U/L (39-308); Glucose Level 223 mg/dL (74-106); Lipase 399 U/L (73-393); Potassium 4.3 mmol/L (3.5-5.1); Sodium Level 144 mmol/L (136-145); Troponin (Emerg Dept Use Only) 0.03 ng/mL (0.0-0.045)
--- NOTE | 2019-09-15 13:06 | RAD REPORT ---
EXAM DESCRIPTION: RAD - Chest Single View - 09/15/2019 12:57 pm CLINICAL HISTORY: Sepsis shortness of breath COMPARISON: September 07 TECHNIQUE: AP portable chest image was obtained 1241 hours . FINDINGS: Lung volumes are low. Stranding at the right base is most likely atelectasis. Right base i nfiltrate is not excluded. Failure or volume overload are doubtful. Chest is not substantially differ ent from the comparison. Heart and vasculature are normal. No measurable pleural effusion and no pneumothorax. No acute bony abnormality seen. No acute aortic findings suspected. IMPRESSION: Limited shallow inspiration film showing lung base atelectasis. This could mask early in filtrate.
--- NOTE | 2019-09-15 13:38 | EDPHYS ---
Physician Documentation [facility] – [place], [place] Name: Francisco Recio Age: 69 yrs Sex: Male : 1950 Arrival Date: 09/15/2019 Time: 12:11 Bed 25 Private MD: ED Physician Alejandro Mcintyre HPI: 09/15 13:30 This 69 yrs old Male presents to ER via EMS with complaints of Fever. myke 13:30 The patient reports fever, that was measured at 101 degrees Fahrenheit. Onset: The myke symptoms/episode began/occurred 2 day(s) ago. Modifying factors: there are no obvious modifying factors. Associated signs and symptoms: Pertinent positives: chills, cough, runny nose, sinus drainage. Severity of symptoms: At their worst the symptoms were mild moderate in the emergency department the symptoms are unchanged. The patient has experienced similar episodes in the past, several times. Historical: - Allergies: 12:32 No Known Allergies; dm5 - Home Meds: 14:43 benztropine 0.5 mg Oral tab 1 tab 2 times per day [Active]; Depakote Sprinkles six mg2 capsules Oral 2 times per day [Active]; donepezil 10 mg Oral tab 2 tab nightly [Active]; escitalopram oxalate 20 mg Oral tab 1 tab once daily [Active]; gabapentin 100 mg Oral cap 1 caps 3 times per day [Active]; hydroxyzine HCl 25 mg Oral tab 1 tab [Active]; Lasix 40 mg Oral tab 1 tab once daily [Active]; magnesium oxide 400 mg Oral cap daily [Active]; Oscal 500/200 mg one tab daily [Active]; potassium chloride 20 mEq Oral TbER 1 tab once daily [Active]; quetiapine 100 mg Oral tab 1 tab daily [Active]; quetiapine 400 mg Oral tab 1 tab nightly [Active]; - PMHx: 12:32 Bipolar disorder; Dementia; Hypertension; polyosteoarthritis; schizoaffectice disorder; dm5 - Immunization history:: Adult Immunizations unknown. - Social history:: Smoking status: unknown. - Ebola Screening: : Patient denies exposure to infectious person Patient denies travel to an Ebola-affected area in the 21 days before illness onset. - Family history:: not pertinent. ROS: 13:30 Constitutional: Negative for fever, chills, and weight loss, Eyes: Negative for injury, myke pain, redness, and discharge, ENT: Negative for injury, pain, and discharge, Neck: Negative for injury, pain, and swelling, Cardiovascular: Negative for chest pain, palpitations, and edema, Back: Negative for injury and pain, : Negative for injury, bleeding, discharge, and swelling, MS/Extremity: Negative for injury and deformity, Skin: Negative for injury, rash, and discoloration, Neuro: Negative for headache, weakness, numbness, tingling, and seizure, Psych: Negative for depression, anxiety, suicide ideation, homicidal ideation, and hallucinations, Allergy/Immunology: Negative for hives, rash, and allergies, Endocrine: Negative for neck swelling, polydipsia, polyuria, polyphagia, and marked weight changes, Hematologic/Lymphatic: Negative for swollen nodes, abnormal bleeding, and unusual bruising. 13:30 Respiratory: Positive for cough, shortness of breath, at rest. 13:30 Abdomen/GI: Positive for abdominal distension. 13:30 Neuro: Negative for altered mental status, acute changes. 13:30 Unable to obtain ROS due to baseline dementia. myke Exam: 13:30 Head/Face: Normocephalic, atraumatic. Eyes: Pupils equal round and reactive to light, myke extra-ocular motions intact. Lids and lashes normal. Conjunctiva and sclera are non-icteric and not injected. Cornea within normal limits. Periorbital areas with no swelling, redness, or edema. ENT: Nares patent. No nasal discharge, no septal abnormalities noted. Tympanic membranes are normal and external auditory canals are clear. Oropharynx with no redness, swelling, or masses, exudates, or evidence of obstruction, uvula midline. Mucous membranes moist. Neck: Trachea midline, no thyromegaly or masses palpated, and no cervical lymphadenopathy. Supple, full range of motion without nuchal rigidity, or vertebral point tenderness. No Meningismus. Chest/axilla: Normal chest wall appearance and motion. Nontender with no deformity. No lesions are appreciated. Abdomen/GI: Soft, non-tender, with normal bowel sounds. No distension or tympany. No guarding or rebound. No evidence of tenderness throughout. Back: No spinal tenderness. No costovertebral tenderness. Full range of motion. Male : Normal genitalia with no discharge or lesions. Skin: Warm, dry with normal turgor. Normal color with no rashes, no lesions, and no evidence of cellulitis. MS/ Extremity: Pulses equal, no cyanosis. Neurovascular intact. Full, normal range of motion. Neuro: Awake and alert, GCS 15, oriented to person, place, time, and situation. Cranial nerves II-XII grossly intact. Motor strength 5/5 in all extremities. Sensory grossly intact. Cerebellar exam normal. Normal gait. Psych: Awake, alert, with orientation to person, place and time. Behavior, mood, and affect are within normal limits. 13:30 Cardiovascular: Rate: tachycardic, Rhythm: regular, Pulses: Pulses are 4+ in bilateral radial, brachial, femoral, popliteal, posterior tibial and and dorsalis pedis arteries.. Heart sounds: normal, Edema: is not appreciated, JVD: is not appreciated. Vital Signs: 12:24 BP 90 / 70; Pulse 111; Resp 20; Temp 102.8(O); Pulse Ox 96% on 3 lpm NC; mg2 12:25 Weight 100 kg; mg2 13:00 BP 96 / 69; Pulse 108; Resp 18; Pulse Ox 98% on R/A; mg2 13:30 BP 97 / 69; Pulse 97; Resp 18; Pulse Ox 98% on 2 lpm NC; mg2 14:36 BP 95 / 66; Pulse 91; Resp 18; Temp 100.1(A); Pulse Ox 98% on 2 lpm NC; mg2 16:28 BP 83 / 53; Pulse 81; Resp 18; Temp 21.62(A); Pulse Ox 98% on 2 lpm NC; mg2 17:00 BP 83 / 51; Pulse 78; Resp 16; Pulse Ox 98% on R/A; mg2 16:28 patient unresposive to verbal commands mg2 MDM: 12:23 Patient medically screened. [facility] 13:34 Data reviewed: vital signs, nurses notes, lab test result(s), EKG, radiologic studies, myke plain films. 09/15 12:16 Order name: Basic Metabolic Panel; Complete Time: 13:03 dm5 09/15 12:16 Order name: Blood Culture Adult (2) [facility] 09/15 12:16 Order name: CBC with Diff; Complete Time: 13:03 5 09/15 12:16 Order name: Ckmb; Complete Time: 13:03 dm5 09/15 12:16 Order name: CPK; Complete Time: 13:03 5 09/15 12:16 Order name: Lactate; Complete Time: 13:03 5 09/15 12:16 Order name: LFT's; Complete Time: 13:03 5 09/15 12:16 Order name: Lipase; Complete Time: 13:03 5 09/15 12:16 Order name: Procalcitonin; Complete Time: 13:30 [facility] 09/15 12:16 Order name: Protime (+inr); Complete Time: 13:03 5 09/15 12:16 Order name: Ptt, Activated; Complete Time: 13:03 5 09/15 12:16 Order name: Troponin (emerg Dept Use Only); Complete Time: 13:03 [facility] 09/15 12:16 Order name: Urine Microscopic Only; Complete Time: 16:11 [facility] 09/15 12:24 Order name: Influenza Screen (a \T\ B); Complete Time: 13:03 [facility] 09/15 12:16 Order name: Chest Single View XRAY; Complete Time: 13:30 [facility] 09/15 12:16 Order name: Accucheck; Complete Time: 12:34 [facility] 09/15 12:16 Order name: Cardiac monitoring; Complete Time: 12:34 [facility] 09/15 12:33 Order name: Glucose, Ancillary Testing; Complete Time: 13:03 [facility] 09/15 13:21 Order name: CT Chest Abdomen Pelvis W/O Contrast: no iv, no oral; Complete Time: 16:11 [facility] 09/15 13:32 Order name: Urine Dipstick--Ancillary (enter results); Complete Time: 16:11 em1 09/15 14:50 Order name: EKG Electrocardiogram [facility] 09/15 16:08 Order name: Lactate Sepsis 2 HR Follow-up; Complete Time: 16:11 EDMD 09/15 16:27 Order name: CT Head Brain wo Cont mg2 09/15 17:23 Order name: CT EDMD 09/15 12:16 Order name: EKG - Nurse/Tech; Complete Time: 12:39 [facility] 09/15 12:16 Order name: IV Saline Lock - Large Bore; Complete Time: 12:34 [facility] 09/15 12:16 Order name: Labs collected and sent; Complete Time: 12:40 dm5 09/15 12:16 Order name: O2 Per Protocol; Complete Time: 12:34 dm5 09/15 12:16 Order name: O2 Sat Monitoring; Complete Time: 12:34 dm5 09/15 12:16 Order name: Urine Dipstick-Ancillary (obtain specimen); Complete Time: 13:14 dm5 09/15 13:05 Order name: NG Tube; Complete Time: 13:54 myke Administered Medications: 12:30 Drug: NS 0.9% (30 ml/kg) 30 ml/kg Route: IV; Rate: bolus; Site: left antecubital; mg2 15:38 Follow up: Response: No adverse reaction; IV Status: Completed infusion; IV Intake: mg2 3000ml 12:39 Drug: Rocephin 1 grams Route: IV; Rate: per protocol; Site: left antecubital; mg2 15:11 Follow up: Response: No adverse reaction; IV Status: Completed infusion mg2 13:29 Drug: Motrin Suspension 10 mg/kg Route: PO; mg2 15:10 Follow up: Response: No adverse reaction; Temperature is decreased mg2 14:15 Drug: Zosyn 3.375 grams Route: IVPB; Infused Over: 60 mins; Site: left antecubital; mg2 15:12 Follow up: Response: No adverse reaction; IV Status: Completed infusion mg2 15:10 Drug: vancoMYCIN 1 grams Route: IVPB; Infused Over: 2 hrs; Site: left antecubital; mg2 15:38 Follow up: Response: No adverse reaction; IV Status: Infusion continued upon admission mg2 16:28 Drug: NS 0.9% 1000 ml Route: IV; Rate: 1000 ml; Site: left antecubital; mg2 Point of Care Testing: Blood Glucose: 12:24 Blood Glucose: 218 mg/dL; mg2 Ranges: Critical Glucose Levels:Adult <50 mg/dl or >400 mg/dl <40 mg/dl or >180 mg/dl Disposition: 09/15/19 13:37 Hospitalization ordered by Magdi Contreras for Inpatient Admission. Preliminary diagnosis are Fever, unspecified, Dyspnea, Severe sepsis, Hypotension. - Bed requested for Intensive Care Unit. - Status is Inpatient Admission. rv - Condition is Fair. - Problem is new. - Symptoms have improved. UTI on Admission? No Signatures: Dispatcher [employer] Alicia Jasso RN RN dmAlejandro Reina MD MD cha Martinez, Eric em1 Chari Gill, ROHIT BEE ss Stuart Lyons, ROHIT BEE mg2 Dinesh Alvarado, ROHIT RN rv Corrections: (The following items were deleted from the chart) 15:31 13:37 Hospitalization Ordered by Magdi Contreras MD for Inpatient Admission. Preliminary em1 diagnosis is Fever, unspecified; Dyspnea; Severe sepsis; Hypotension. Bed requested for Telemetry/MedSurg (Inpatient). Status is Inpatient Admission. Condition is Fair. Problem is new. Symptoms have improved. UTI on Admission? No. myke 16:33 15:31 09/15/2019 13:37 Hospitalization Ordered by Magdi Contreras MD for Inpatient ss Admission. Preliminary diagnosis is Fever, unspecified; Dyspnea; Severe sepsis; Hypotension. Bed requested for Telemetry/MedSurg (Inpatient). Status is Inpatient Admission. Condition is Fair. Problem is new. Symptoms have improved. UTI on Admission? No. em1 16:52 16:33 09/15/2019 13:37 Hospitalization Ordered by Magdi Contreras MD for Inpatient em1 Admission. Preliminary diagnosis is Fever, unspecified; Dyspnea; Severe sepsis; Hypotension. Bed requested for Intensive Care Unit. Status is Inpatient Admission. Condition is Fair. Problem is new. Symptoms have improved. UTI on Admission? No. ss 17:29 16:52 09/15/2019 13:37 Hospitalization Ordered by Magdi Contreras MD for Inpatient rv Admission. Preliminary diagnosis is Fever, unspecified; Dyspnea; Severe sepsis; Hypotension. Bed requested for Intensive Care Unit. Status is Inpatient Admission. Condition is Fair. Problem is new. Symptoms have improved. UTI on Admission? No. em1
--- NOTE | 2019-09-15 13:38 | ER ---
Nurse's Notes [facility] Name: Francisco Recio Age: 69 yrs Sex: Male : 1950 Arrival Date: 09/15/2019 Time: 12:11 Bed 25 Private MD: Diagnosis: Fever, unspecified;Dyspnea;Severe sepsis;Hypotension Presentation: 09/15 12:10 Presenting complaint: EMS states: Discharged recently from [facility] with dm5 pneumonia. [facility] reports that patient has still been having intermittent fever, and appears septic. Patient has been receiving antibiotics VIA PEG tube, but was supposed to have PICC line placed for IV therapy. Transition of care: patient was not received from another setting of care. Onset of symptoms was September 10, 2019. Risk Assessment: Do you want to hurt yourself or someone else? Patient reports no desire to harm self or others. Initial Sepsis Screen: Does the patient meet any 2 criteria? RR > 20 per min. HR > 90 bpm. Does the patient have a suspected source of infection? Yes: Productive cough/pneumonia. Care prior to arrival: IV initiated. 20 GA, in the left antecubital area. 12:10 Method Of Arrival: EMS: [facility] dm5 12:10 Acuity: TITUS 2 dm5 Historical: - Allergies: 12:32 No Known Allergies; dm5 - Home Meds: 14:43 benztropine 0.5 mg Oral tab 1 tab 2 times per day [Active]; Depakote Sprinkles six mg2 capsules Oral 2 times per day [Active]; donepezil 10 mg Oral tab 2 tab nightly [Active]; escitalopram oxalate 20 mg Oral tab 1 tab once daily [Active]; gabapentin 100 mg Oral cap 1 caps 3 times per day [Active]; hydroxyzine HCl 25 mg Oral tab 1 tab [Active]; Lasix 40 mg Oral tab 1 tab once daily [Active]; magnesium oxide 400 mg Oral cap daily [Active]; Oscal 500/200 mg one tab daily [Active]; potassium chloride 20 mEq Oral TbER 1 tab once daily [Active]; quetiapine 100 mg Oral tab 1 tab daily [Active]; quetiapine 400 mg Oral tab 1 tab nightly [Active]; - PMHx: 12:32 Bipolar disorder; Dementia; Hypertension; polyosteoarthritis; schizoaffectice disorder; dm5 - Immunization history:: Adult Immunizations unknown. - Social history:: Smoking status: unknown. - Ebola Screening: : Patient denies exposure to infectious person Patient denies travel to an Ebola-affected area in the 21 days before illness onset. - Family history:: not pertinent. Screenin:46 Abuse screen: Denies threats or abuse. Denies injuries from another. Nutritional mg2 screening: On. Tuberculosis screening: No symptoms or risk factors identified. Fall Risk IV access (20 points). Gait- Weak (10 pts.). Mental Status- Overestimates/Forgets Limitations (15 pts.). Assessment: 12:45 Reassessment: patient is lethargic, semi-conscious. mg2 14:38 General: Appears in no apparent distress. Behavior is semi-conscious, no verbal mg2 response, just moaning . Pain: Unable to use pain scale. Patient appears to be moaning. Neuro: Level of Consciousness is lethargic, Oriented to with Alzheimers. Cardiovascular: Capillary refill < 3 seconds Patient's skin is warm and dry. Respiratory: Airway is patent Respiratory effort is even, unlabored, relaxed, Respiratory pattern is regular, symmetrical, Breath sounds with rales bilaterally. in right upper lobe and left upper lobe diminished to the left lung. GI: No signs and/or symptoms were reported involving the gastrointestinal system. GI: Abdomen is round distended, Bowel sounds present X 4 quads. : Lynn in place to gravity drainage Urine is clear. EENT: No signs and/or symptoms were reported regarding the EENT system. Derm: Decubitus located on left heel(s). Musculoskeletal: Circulation, motion, and sensation intact. Capillary refill < 3 seconds. 15:42 Reassessment: Patient appears in no apparent distress at this time. Patient and/or mg2 family updated on plan of care and expected duration. Pain level reassessed. family at bedside. patient sleeping. 16:29 Reassessment: dr maria at bedside exmaining the patient and ordered to admit the mg2 patient in ICU. Blood pressure is declining and he is not responding to verbal and sternal rub. Vital Signs: 12:24 BP 90 / 70; Pulse 111; Resp 20; Temp 102.8(O); Pulse Ox 96% on 3 lpm NC; mg2 12:25 Weight 100 kg; mg2 13:00 BP 96 / 69; Pulse 108; Resp 18; Pulse Ox 98% on R/A; mg2 13:30 BP 97 / 69; Pulse 97; Resp 18; Pulse Ox 98% on 2 lpm NC; mg2 14:36 BP 95 / 66; Pulse 91; Resp 18; Temp 100.1(A); Pulse Ox 98% on 2 lpm NC; mg2 16:28 BP 83 / 53; Pulse 81; Resp 18; Temp 21.62(A); Pulse Ox 98% on 2 lpm NC; mg2 17:00 BP 83 / 51; Pulse 78; Resp 16; Pulse Ox 98% on R/A; mg2 16:28 patient unresposive to verbal commands mg2 ED Course: 12:11 Patient arrived in ED. em1 12:23 Alejandro Mcintyre MD is Attending Physician. myke 12:23 Stuart Lyons RN is Primary Nurse. mg2 12:25 Inserted saline lock: 20 gauge in right wrist, using aseptic technique. Blood collected.mg2 12:30 Maintain EMS IV. Dressing intact. Good blood return noted. Site clean \T\ dry. Gauge \T\ rio 3 site: 20gauge in Left AC. 12:31 Triage completed. dm5 12:32 Arm band placed on right wrist. dm5 12:41 No provider procedures requiring assistance completed. mg2 12:50 Lynn cath inserted, using sterile technique, 16 Fr., by me, balloon inflated, to jp3 gravity drainage, urine specimen collected. returned rao urine. Patient tolerated well. 12:50 Urine collected: Lynn catheter specimen, clear, rao colored, Amount Returned: 250mL. jp3 12:58 Chest Single View XRAY In Process Unspecified. EDMS 13:11 Placed in gown. Call light in reach. Side rails up X 1. Side rails up X2. Verbal jp3 reassurance given. classroom monitor on. Pulse ox on. NIBP on. 13:34 Magdi Maria MD is Hospitalizing Provider. myke 14:07 CT Chest Abdomen Pelvis W/O Contrast: no iv, no oral In Process Unspecified. EDMS 15:41 Patient admitted, IV remains in place. mg2 15:42 Repeat lab(s) drawn. by me, sent to lab. jp3 Administered Medications: 12:30 Drug: NS 0.9% (30 ml/kg) 30 ml/kg Route: IV; Rate: bolus; Site: left antecubital; mg2 15:38 Follow up: Response: No adverse reaction; IV Status: Completed infusion; IV Intake: mg2 3000ml 12:39 Drug: Rocephin 1 grams Route: IV; Rate: per protocol; Site: left antecubital; mg2 15:11 Follow up: Response: No adverse reaction; IV Status: Completed infusion mg2 13:29 Drug: Motrin Suspension 10 mg/kg Route: PO; mg2 15:10 Follow up: Response: No adverse reaction; Temperature is decreased mg2 14:15 Drug: Zosyn 3.375 grams Route: IVPB; Infused Over: 60 mins; Site: left antecubital; mg2 15:12 Follow up: Response: No adverse reaction; IV Status: Completed infusion mg2 15:10 Drug: vancoMYCIN 1 grams Route: IVPB; Infused Over: 2 hrs; Site: left antecubital; mg2 15:38 Follow up: Response: No adverse reaction; IV Status: Infusion continued upon admission mg2 16:28 Drug: NS 0.9% 1000 ml Route: IV; Rate: 1000 ml; Site: left antecubital; mg2 Point of Care Testing: Blood Glucose: 12:24 Blood Glucose: 218 mg/dL; mg2 Ranges: Intake: 15:38 IV: 3000ml; Total: 3000ml. mg2 Outcome: 13:37 Decision to Hospitalize by Provider. myke 17:29 Patient left the ED. rv 17:29 Admitted to ICU accompanied by nurse, accompanied by tech, via stretcher, room 3, with mg2 oxygen, on monitor, with chart, Report called to ROHIT Martinez 17:29 critical 17:29 Instructed on the need for admit, Demonstrated understanding of instructions. mg2 Signatures: Dispatcher [employer] Alicia Jasso RN RN Alejandro Macias MD MD cha Martinez, Eric em1 Stuart Lyons RN RN mg2 Dinesh Alvarado RN RN rv Marquis Bhatti jp3
[2019-09-15 13:39] LABS: Urine Amorphous Sediment 3+ /HPF (NONE SEEN); Urine Bacteria NONE SEEN /HPF (NONE SEEN); Urine Culture Reflex Order NOT NEEDED; Urine Mucus LIGHT /HPF (NONE SEEN); Urine RBC NONE SEEN /HPF (NONE SEEN)
[2019-09-15 13:39] LABS: Urine Blood NEGATIVE (NEG); Urine Glucose NEGATIVE (NEG); Urine Protein 1+ (NEG)
[2019-09-15] MEDS ORDERED: VANCOMYCIN 1 GM/250 ML BAG IV ONE (13:45)
[2019-09-15] MEDS ORDERED: PIPER/TAZO/NS 3.375gm 3.375 GM/100 ML BAG IV ONE (13:45)
--- NOTE | 2019-09-15 14:20 | RAD REPORT ---
EXAM DESCRIPTION: CT - Chest Abd Pelvis Wo Con - 09/15/2019 2:05 pm CLINICAL HISTORY: Cough and abdominal pain COMPARISON: August 2019 CT chest TECHNIQUE: Computed axial tomography of the chest, abdomen and pelvis was obtained. Oral contrast wa s given. IV contrast was not requested. All CT scans are performed using dose optimization technique as appropriate and may include automated exposure control or mA/KV adjustment according to patient size. FINDINGS: The evaluation of mediastinum, julian, vessels and solid organs is limited secondary to the lack of IV contrast administration No mediastinal or hilar lymphadenopathy is seen. A pleural effusion is not present. A pericardial effusion is not seen. Partial resolution right lower lobe opacity. Left lung is clear The cirrhotic liver. There are multiple hepatic masses. The Spleen, pancreas, adrenals and kidneys appear grossly normal There is no evidence of diverticulitis. A percutaneous tube within the stomach. Lynn catheter within the bladder. Small amount of ascites IMPRESSION: Partial resolution in a right pneumonia No change in the multiple hepatic masses probably neoplasm
--- NOTE | 2019-09-15 15:32 | EKG ---
Test Date: 2019-09-15 Test Time: 12:38:10 [employer] Secretary: ANDRADE MEASUREMENT RESULTS: Intervals: Rate: 110 NH: 140 QRSD: 76 QT: 310 QTc: 419 [place]: P: 6 NH: 140 QRS: 17 T: 32 INTERPRETIVE STATEMENTS: Sinus tachycardia Otherwise normal ECG Compared to ECG 09/02/2019 17:11:03 No significant changes Electronically Signed On 09-15-19 15:30:55 PROGRAM DIRECTOR/MUSIC DIRECTOR by Valente Andrews
[2019-09-15] MEDS ORDERED: ONDANSETRON 4 MG/2 ML VIAL IV PRN (16:13)
[2019-09-15] MEDS ORDERED: ALBUTEROL 2.5 MG/3 ML NEB SOL NEB PRN (16:13)
[2019-09-15] MEDS ORDERED: IPRATROPIUM BROM 0.5MG/2.5ML NEB PRN (16:13)
[2019-09-15] MEDS: NA CHLORIDE 0.9% 1,000 ML IV SCH (16:13)
[2019-09-15] MEDS ORDERED: NA CHLORIDE 0.9% 500 ML ONE (16:51)
[2019-09-15] MEDS ORDERED: NOREPINEPHRINE 4mg/D5W 250mL 4 MG/250 ML BAG IV ONE (16:51)
--- NOTE | 2019-09-15 17:15 | RAD REPORT ---
EXAM DESCRIPTION: CT - Head Brain Wo Cont - 09/15/2019 5:09 pm CLINICAL HISTORY: Fever, declining state, transient alteration of awareness COMPARISON: September 06 TECHNIQUE: Axial 5 mm thick images of the head were obtained without IV contrast. All CT scans are performed using dose optimization technique as appropriate and may include automated exposure control or mA/KV adjustment according to patient size. FINDINGS: No intracranial hemorrhage, mass, edema or shift of mid-line structures. No cortical edema or sulcal effacement. Patient has very advanced for age atrophy. Chronic ischemic changes are presen t but minimal. No abnormal extra-axial fluid collections. Ventricles are in proportion to volume loss . Arterial and physiologic calcifications are present. Mastoid air cells and visualized portions of the paranasal sinuses are clear of acute finding. No acute bony findings. IMPRESSION: Negative non-contrast CT head examination for acute finding. Advanced for age atrophy similar to comparison.
[2019-09-15 17:48] LABS: Arterial Blood Carboxyhemoglob 1.5 % (0-1.5); Blood Gas Oxyhemoglobin 93.3 % (94-97); Blood O2 Saturation 95.2 % (92-98.5)
[2019-09-15 18:05] VITALS: BMI 26.7
[2019-09-15] MEDS ORDERED: NOREPINEPHRINE 4 MG in D5W 250 ML IV PRN (18:50)
--- NOTE | 2019-09-15 18:55 | P.INFCA ---
Sepsis Focused Assessment - Focused Assessment Complete? Sepsis Focused Assessment Completed?: Yes - Sepsis Screen Result Septic Shock: Positive - Evaluation Current stage of sepsis: Septic shock - Vital Signs Reviewed: Yes Heart rate: 76 Blood Pressure: 87/58 Respiratory Rate: 20 O2 Sat by Pulse Oximetry: 96 - Examination Date exam was performed: 09/15/19 Time exam was performed: 18:55 Heart: Regular rate/rhythm Lungs: Wheezes Peripheral pulses: 3+ Normal Peripheral pulse location: Radial Capillary refill: <2 Seconds Skin examination: Normal turgor
[2019-09-15] MEDS: DIVALPROEX NA 125 MG CAP FT SCH (20:56)
[2019-09-15] MEDS: HEPARIN 5000 UNIT/ML 1 ML VIAL SQ SCH (20:57)
[2019-09-16] MEDS: NA CHLORIDE 0.9% 1,000 ML IV SCH (03:32)
--- NOTE | 2019-09-16 04:19 | HP ---
Date of Admission: 09/15/2019 Chief Complaint: Decreased mental status, sepsis. Code Status: Full code. History Of Present Illness: Patient is a 69-year-old male with past medical history of Alzheimer's d ementia, advanced. Patient no longer talking, hypertension, schizophrenia, chronic kidney disease, r esident of fdc, who was recently discharged from the hospital after being admitted for respi ratory distress, comes in right because there was some decreased level of consciousness and family wa s alerted by the nursing facility. There was no reported fall. Patient is on an Alzheimer's unit. Patient did have fever as well, which began 2 days ago. No nausea or vomiting. Patient did have arden e chills, cough, runny nose, and sinus symptoms. Patient's symptoms are constant, moderate, progress ively worsening. In the ER, the patient's temperature was 102.8, he was tachycardic. Blood pressure was 90/70. He was given 3 L bolus for sepsis. His lactate was 3.2. Procalcitonin was 24. His [facility] te blood cell count was 19,000. Creatinine was elevated at 2.86, on discharge it was 1.19 on the . Patient's repeat lactate improved to 1.7. No apparent source of infection was found. UA was nega tive. His CT scan showed partial resolution of the right pneumonia. He does have a cirrhotic liver and hepatic masses. Patient was then referred for admission. Initially, family inquired about trans ferring to [place], I explained to them that it is their choice. He is more than welcome to be trans ferred to [place]; however, he was somewhat unstable due to his low blood pressure requiring IV fluid s and pressors, not responding to IV fluids. Family at that point agree to keep the patient here at this facility in the ICU. They understand the transfer process once the patient is admitted is more tedious requires accepting physician, acceptance by facility, as well as bed availability and can kaveh e several days. The patient was then referred for admission. Past Medical History: Alzheimer's dementia, hypertension, schizophrenia, chronic kidney disease. Patient also has liver cirrhosis and masses. Surgical History: Unable to obtain. Social History: Patient is a fdc resident at an Alzheimer's unit. No smoking or drinking. Family History: Noncontributory. Review of Systems: Unable to be obtained due to patient's medical condition. Allergies: NO KNOWN DRUG ALLERGIES. Medications: List reviewed. Physical Examination: Vital Signs: Temperature 102.8, heart rate 111, blood pressure 90/70, respirations 20, O2 96% on 3 L via nasal cannula. General: Asleep, but arousable to deep sternal rub. Opens eyes. Does not follow commands, ill-appe aring elderly male. HEENT: Normocephalic, atraumatic. PERRLA. EOMI. Dry mucous membranes. Poor dentition. Conjuncti vae anicteric. Neck: Supple. No JVD. Trachea midline. CV: S1, S2. Sinus tachycardia. Peripheral pulses present. Respiratory: Moving air well bilaterally. No wheezing or stridor. Gastrointestinal: Abdomen is soft, nontender, nondistended. Positive bowel sounds. No guarding or rigidity. Extremities: No clubbing, cyanosis, or edema. No calf tenderness. Neuro: Unable to properly assess due to patient's medical condition, however does move all 4 extremi ties. Cranial nerves appeared grossly to be intact. No focal neurological deficit. Patient is nonv erbal. SKIN: Patient has stage I decubitus ulcer. Also has ulcer on the left heel with bullae. Laboratory Data: UA negative. Sodium 144, potassium 4.3, chloride 107, CO2 of 31, BUN 81, creatinin e 2.86, glucose 223, lactate 3.2. Repeat lactate is 1.7, calcium 8. AST 128, ALT 16, alkaline phosp hatase 814. Procalcitonin 24.89. Lipase 399. INR 1.36. ABG; pH 7.4, pCO2 44, PO2 80, bicarb 26. WBC 19.4, H and H 10.9 and 32.2, platelets 164. CT scan of abdomen, pelvis, and chest shows partial resolution in right pneumonia. No change in the multiple hepatic masses, probably neoplasm, cirrhoti c liver. Head CT scan shows no acute abnormalities, advanced atrophy. Chest x-ray, limited shallow inspiration film showing lung base atelectasis, could mask early infiltrate. Assessment: A 69-year-old male with, 1.Severe sepsis. Patient is tachycardic, hypotensive, now on pressors. Septic shock is present. S ource of infection is unclear, may be due to continuing pneumonia versus wound infection on the foot. We will cover with broad-spectrum IV antibiotics. Consult ID. 2.Hypertensive shock. Patient on Levophed. Patient already received 4 L of normal saline bolus ref ractory to fluid resuscitation secondary to above. 3.Pneumonia. CT scan, however, shows partial resolution. We will continue with IV antibiotics. We will obtain blood cultures and sputum cultures. 4.Alzheimer's dementia. 5.Anemia, normocytic, normochromic. We will monitor H and H, transfuse as needed. 6.Acute kidney injury. Creatinine is 2.86. We will continue IV fluids. Monitor kidney function. Avoid NSAIDs. 7.Acute rhabdomyolysis. CK level is 360. We will repeat in a.m. Consult Nephrology. 8.Essential hypertension, currently hypotensive with shock. Plan: Admit patient to ICU, place as inpatient, length of stay greater than 2 midnights. The patien t's lactate is now normalized. Procalcitonin is still elevated at 24. White count is 19,000. Overa ll, poor prognosis. Code status is full. Daughter is the medical power of tax associate attorney. She wishes to have all resuscitative efforts be attempted in case of cardiopulmonary arrest. SA/MODL Voice ID: [id number]
[2019-09-16 05:29] LABS: Absolute Lymphocytes (CBC) 1.1 K/uL (0.7-4.9); Hematocrit 28.2 % (39.6-49.0); Lymphocytes % 7.9 % (15.3-44.8); MPV 10.9 fL (7.6-11.3)
[2019-09-16 05:38] LABS: Magnesium 2.8 mg/dL (1.8-2.4); Phosphorus 3.8 mg/dL (2.5-4.9); Potassium 3.8 mmol/L (3.5-5.1)
[2019-09-16] MEDS: LEVOTHYROXINE SOD 0.1 MG TAB FT SCH (08:58)
[2019-09-16] MEDS: THIAMINE 200 MG/2 ML INJ IVP SCH (08:58)
[2019-09-16] MEDS: HEPARIN 5000 UNIT/ML 1 ML VIAL SQ SCH ×2 (08:58→20:06)
[2019-09-16] MEDS: DIVALPROEX NA 125 MG CAP FT SCH ×2 (08:59→20:06)
[2019-09-16] MEDS: CEFEPIME/SWI 2gm 2 GM/20 ML SYR IVP SCH (08:59)
[2019-09-16] MEDS ORDERED: BENZTROPINE MESYLATE 0.5 MG FT SCH (09:00)
[2019-09-16] MEDS ORDERED: GLUCERNA 1.5 CAL 1,000 ML BOT FT SCH ×2 (09:00→18:40)
[2019-09-16] MEDS ORDERED: VANCOMYCIN 1.25 GM in NA CHLORIDE 0.9% 250 ML IVPB SCH (09:00)
[2019-09-16] MEDS: GABAPENTIN 100 MG CAP FT SCH ×3 (09:00→20:06)
[2019-09-16] MEDS: ESCITALOPRAM 20 MG TAB FT SCH (09:00)
[2019-09-16] MEDS: QUETIAPINE 100MG TAB FT SCH (09:00)
[2019-09-16 09:29] LABS: Blood Morphology Comment NOT SEEN (NOT SEEN); Platelet Estimate DECR; Urine White Blood Cell Casts OK
[2019-09-16] MEDS ORDERED: D5 0.45 NS 1,000 ML IV SCH (12:00)
[2019-09-16] MEDS ORDERED: NA CHLORIDE 0.9% 500 ML IV ONE (14:07)
--- NOTE | 2019-09-16 14:27 | PN ---
Date of Progress Note: 09/16/2019 Patient seen and examined. Chart reviewed and case discussed with RN. Patient is much more awake an d alert this morning. Did speak with [facility] yesterday that they are consid ering this transfer non-urgent and therefore they will have the morning ICU team call. Transfer Cent er was contacted at 5:45 a.m. No updates. Patient is doing better. Will be stepped down, we will r equest non-ICU bed at [facility]. No family present at the bedside. Medications: List reviewed. Physical Examination: Vital Signs: Temperature 98, heart rate 79, blood pressure 117/74, respirations 17, O2 at 97% on 3 L via nasal cannula. General: Awake, alert. Follows some commands, nonverbal, ill-appearing elderly male. CV: S1, S2. Regular rate and rhythm. Peripheral pulses present. Respiratory: Diminished breath sounds at the bases. Some rhonchi heard. No wheezing or stridor. N o use of accessory muscles. Gastrointestinal: Abdomen is soft, nondistended, nontender. Positive bowel sounds. Extremities: No clubbing, cyanosis, or edema. Neuro: Moves all 4 extremities. Follows some commands. Opens eyes spontaneously. Laboratory Data: Sodium 151, potassium 3.8, chloride 116, CO2 of 30, BUN 68, creatinine 1.89, glucos e 150, lactate 1.7, calcium 7.6, phosphorus 3.8, magnesium 2.8. CK level is 266. Procalcitonin was 15.22. WBC 13.7, H and H 9.3 and 28.2, platelets 92, neutrophils 82.5%. Influenza screen is negativ e. Blood cultures and sputum cultures are pending. Assessment And Plan: A 69-year-old male with: 1.Severe sepsis with shock. Patient was hypotensive. Blood pressure now improved. MAP has been st eadily improving. Did not require pressors. Once he came to the ICU, likely secondary to pneumonia versus wound infection of the foot. Continue with broad-spectrum IV antibiotics. White blood cell c ount is trending down. Cultures are pending at this time. We will consult ID. 2.Hypotensive shock, not refractory to IV fluid boluses, now improved secondary to above. 3.Acute kidney injury, improving. We will continue with IV fluids. We will switch over to D5 half NS due to hypernatremia. 4.Hypernatremia. Sodium jumped up in the 150s. We will adjust IV fluids and monitor. 5.Acute rhabdomyolysis, nontraumatic, CK levels back to normal. We will continue to monitor. 6.Pneumonia, possibly gram-negative. We will continue with IV antibiotics. Follow up on cultures. 7.Normocytic normochromic anemia. Monitor H and H and transfuse for hemoglobin less than 7. 8.Alzheimer dementia without behavioral disturbance. Patient much more alert and cooperative today. Plan: We will step down from ICU. Family still requesting transfer to [place], pending [facility] callback from Transfer Center. Overall guarded prognosis. SA/MODL Voice ID: [id number] Report ID: [id number]
[2019-09-16 15:15] LABS: Urine Protein/Creatinine Ratio 0.98 ratio (<0.15)
[2019-09-16] MEDS: BENZTROPINE 1 MG TAB FT SCH (20:05)
[2019-09-16] MEDS ORDERED: DONEPEZIL HCL FT SCH (21:00)
[2019-09-16] MEDS ORDERED: DONEPEZIL HCL 5 MG TAB FT SCH (21:00)
[2019-09-16] MEDS: D5.45NS W/KCL 20MEQ 20 MEQ/1,000 ML BAG IV SCH (22:07)
[2019-09-16] MEDS: MIDODRINE HCL 5 MG TABLET FT PRN (22:15)
[2019-09-16] MEDS: ACETAMINOPHEN 500 MG TAB PO PRN (23:53)
--- NOTE | 2019-09-17 02:14 | CON ---
Date of Consultation: 09/16/2019 Reason For Consultation: Elevated BUN and creatinine, fluid management. History Of Present Illness: This is a 69-year-old gentleman. All the information has been obtained from the record as nobody by bedside, patient with dementia. Past medical history of Alzheimer demen tia, hypertension, psychosis, schizophrenia, chronic kidney disease, baseline creatinine 1.3, GFR of 45 back in July 2019. Patient recently admitted to the hospital with acute kidney injury, dehydra tion. Apparently, patient was discharged to the halfway, in the halfway was alter mental s tatus with fever for that reason brought in the emergency room. Primary workup showed elevation in p rocalcitonin with elevation in lactic acid and creatinine up to 2.8. For that reason, we have been c onsulted. Reviewing the record from halfway, patient apparently was placed on cefdinir and Lasi x with potassium. Patient over the night started on IV fluids. Procalcitonin has decreased. Lactic acid has decreased. Blood pressure has been improved. Creatinine has started been improving. Past Medical History: Includes: 1.Dementia, Alzheimer. 2.Schizophrenia. 3.Chronic kidney disease, baseline creatinine 1.1 on previous discharge few weeks ago. Past Surgical History: Not obtainable. Social History: Lives in halfway. Denies smoking. Denies drinking. Denies drug abuse. Family History: Not obtainable. Review of Systems: Not obtainable. Allergies: NO KNOWN DRUGS ALLERGY. Medications: senior living medications current include hydroxyzine, valproic acid, KCl, midodrine, le vothyroxine, breathing treatment, gabapentin, Lasix, cefdinir, vitamin C. Current medications includ e cefepime, citalopram, gabapentin, levothyroxine, Zofran, thiamine, and vancomycin. Physical Examination: Vital Signs: When I saw the patient lying in bed blood pressure of 99/56, pulse of 88. Chest: Clear to auscultation. Heart: S1, S2. Systolic murmur. Abdomen: Soft, nontender. Extremities: Trace edema. Laboratory Data: WBC 13.7, H and H are 9.3/28.2, platelets of 92. Sodium of 151, potassium 3.8, bic arb 30, BUN 68, creatinine 1.8, calcium 7.6, magnesium 2.8, phos 3.8. Assessment And Plan: 1.Acute kidney injury secondary to prerenal superimposed with dehydration. Currently, patient still on dehydration side. I am going to bolus the patient with normal saline. Due to presence of hypern atremia, I am going to start the patient on D5 and half-normal. We will monitor the patient. 2.Hypertension, currently blood pressure on the lower side. We will start fluid resuscitation. 3.Hypokalemia. We will supplement. 4.Hypernatremia secondary to depletion, superimposed with diuresis. Hold Lasix. We will start the patient on IV fluid. 5.Sepsis, possible healthcare associated agree with current antibiotic. We will follow up level. 6.Deconditioning. Altered mental status secondary to encephalopathy. We will follow up with christina frausto MA/LEDY Voice ID: [id number] Report ID: [id number]
[2019-09-17 03:29] LABS: Absolute Lymphocytes (CBC) 0.9 K/uL (0.7-4.9); Basophils % 0.5 % (0-1.3); Hematocrit 28.2 % (39.6-49.0); Lymphocytes % 7.9 % (15.3-44.8); MPV 11.9 fL (7.6-11.3); RBC Red Blood Cell Count 3.11 M/uL (4.33-5.43)
[2019-09-17 03:33] LABS: Albumin 1.3 g/dL (3.4-5.0); Phosphorus 2.1 mg/dL (2.5-4.9); Potassium 3.9 mmol/L (3.5-5.1)
[2019-09-17] MEDS ORDERED: VANCOMYCIN 1.25 GM in NA CHLORIDE 0.9% 250 ML IVPB SCH (04:00)
[2019-09-17] MEDS: THIAMINE 200 MG/2 ML INJ IVP SCH (09:00)
[2019-09-17] MEDS: GABAPENTIN 100 MG CAP FT SCH (09:00)
[2019-09-17] MEDS: BENZTROPINE 1 MG TAB FT SCH ×2 (09:00→20:21)
[2019-09-17] MEDS: LEVOTHYROXINE SOD 0.1 MG TAB FT SCH (09:00)
[2019-09-17] MEDS: QUETIAPINE 100MG TAB FT SCH (09:00)
[2019-09-17] MEDS: DIVALPROEX NA 125 MG CAP FT SCH ×2 (09:00→20:21)
[2019-09-17] MEDS: ESCITALOPRAM 20 MG TAB FT SCH (09:00)
[2019-09-17] MEDS: D5.45NS W/KCL 20MEQ 20 MEQ/1,000 ML BAG IV SCH ×2 (10:20→10:26)
[2019-09-17] MEDS: HEPARIN 5000 UNIT/ML 1 ML VIAL SQ SCH (10:25)
--- NOTE | 2019-09-17 10:43 | RAD REPORT ---
EXAM DESCRIPTION: RAD - Abdomen Single View - 09/17/2019 10:20 am CLINICAL HISTORY: r/o aspiration Abdominal pain COMPARISON: Renal Ultrasound-Complete dated 09/03/2019; Chest Single View dated 09/17/2019; Chest Sin gle View dated 09/15/2019 FINDINGS: Significantly limited supine portable exam of the abdomen and pelvis obtained. Patient is rotated and the uppermost abdomen is cut off the field of view. Radiopaque tubing overlies the right side of the abdomen. There is no history provided indicating PEG tube. The stomach is not adequately visualized. No dilated large or small bowel. No free air or pneumatosis. Moderate stool volume distends the dista l colon. No suspicious calcifications. IMPRESSION: Significantly limited KUB examination without acute finding.
--- NOTE | 2019-09-17 10:44 | RAD REPORT ---
EXAM DESCRIPTION: RAD - Chest Single View - 09/17/2019 10:16 am CLINICAL HISTORY: Possible aspiration, shortness of breath COMPARISON: September 15 TECHNIQUE: AP portable chest image was obtained 0943 hours . FINDINGS: Very low lung volumes are again noted. Linear stranding is present in each lung base, wors e on the right. No new or progressive lung parenchymal finding. No significant failure or volume over load finding. Heart size is normal. No pneumothorax or large pleural effusion. No acute bony abnormal ity seen. No acute aortic findings suspected. IMPRESSION: Limited portable imaging showing linear atelectasis at each base. No substantial change from comparison.
[2019-09-17] MEDS ORDERED: FUROSEMIDE 40 MG/4 ML VIAL IV ONE (10:45)
[2019-09-17] MEDS: CEFEPIME/SWI 2gm 2 GM/20 ML SYR IVP SCH (11:15)
[2019-09-17] MEDS: D5W 1,000 ML IV SCH ×2 (11:20→20:21)
[2019-09-17] MEDS: ACETAMINOPHEN 500 MG TAB PO PRN (11:20)
--- NOTE | 2019-09-17 15:17 | PN ---
Date of Progress Note: 09/17/2019 Subjective: Patient had episode of vomiting. PEG tube feeds have been stopped. Still having fevers. Physical Examination: Vital Signs: Temperature 100.4, heart rate 84, blood pressure 105/59, respirations 24, O2 97% on 2.5 L via nasal cannula. General: Awake, alert, does not follow commands, demented male, ill-appearing. CV: S1, S2. Regular rate and rhythm. Peripheral pulses present. Respiratory: Diminished breath sounds, especially at the bases, worse on the right. Patient is tachypneic with use of accessory muscles. Gastrointestinal: Abdomen is soft, nontender, nondistended. Positive bowel sounds. Extremities: No clubbing, cyanosis, or edema. Neurologic: Nonfocal. Patient is nonverbal. Laboratory Data: Sodium 151, potassium 3.9, chloride 120, CO2 of 27, BUN 64, creatinine 1.66, glucose 232, calcium 7.3, phosphorus 2.1, magnesium 3, albumin 1.3. WBC 11.7, H and H 9.3 and 28.2, neutrophils 81.3%. Blood cultures, Gram stain is positive showing gram-positive cocci in clusters. Sputum cultures pending. Imaging Studies: Chest x-ray shows limited portable imaging showing linear atelectasis in each base. No substantial change from previous abdominal x-ray. Shows significantly limited KUB examination without acute finding. Assessment: 69-year-old male with; 1. Severe sepsis with shock. Blood pressure improved secondary to pneumonia and foot infection. Appreciate ID input. 2. Hypotensive shock, improved with IV fluid bolus. Blood pressure now in the 130s. 3. Acute kidney injury. Kidney function is improving. We will continue to monitor. Appreciate Nephrology input. Continue with IV fluids. 4. Hypernatremia. Sodium still 151. Continue with D5 half NS. May need to switch to D5W. We will monitor. 5. Acute rhabdomyolysis, nontraumatic, resolved. 6. Pneumonia, possibly gram-negative on the right lower lobe. Continue with IV antibiotics. Cultures so far with gram-positive cocci. Final cultures pending. 7. Normocytic normochromic anemia. Continue to monitor H and H, transfuse for hemoglobin less than 7. 8. Alzheimer dementia without behavioral disturbance. 9. Dysphagia. Patient has PEG tube. 10. Nausea, vomiting. PEG tube feeds have been held. Possible choking episode. Chest x-ray was repeated as well as KUB. No obstruction seen. We will continue to monitor. 11. Deep vein thrombosis prophylaxis. We will discontinue heparin. Patient' s platelets down to 70. Place SCDs. Plan: Patient is still pending transfer to [facility] pending bed availability. Overall, poor prognosis. Still remains full code. SA/MODGucci Voice ID: [id number] Report ID: [id number] MTDD
--- NOTE | 2019-09-17 16:11 | CON ---
History Of Present Illness: This is a 69-year-old [facility] resident with stroke, Alzheimer dementia, baseline hypertension, schizophrenia, chronic kidney disease, coming in with severe sepsis, possibly secondary to pneumonia, currently on IV antibiotic. Patient is unable to give any history. Most of the history was obtained through medical records. Patient also has a wound on the right heel and to the right earlobe. Initially, came in with WBC of 19, 400. His blood cultures done on 09/15 are negative for 24-hours. Only one set is growing in Gram stain, gram-positive cocci. Blood cultures are negative. Past Medical History: As per HPI. Past Surgical History: non contributry. Social History: He is [facility] resident. Nonsmoker. Nondrinker. Family History: Noncontributory. Medications: Vancomycin and cefepime. Allergies: NO KNOWN DRUG ALLERGIES. Review of Systems: Unable to obtain. Physical Examination: General: This is a 69-year-old male, lying in bed, not in any acute cardiopulmonary distress. Vital Signs: T-max of 100.4 this morning, pulse is 84, respirations 20, blood pressure 105/59. HEENT: Unremarkable. The right ear with also erythematous changes and small open area noted at the right ear auricle area. Neck: Supple. Lungs: Basal crackles. Heart: S1, S2. Regular. Abdomen: Soft, nontender. Bowel sounds present. Extremities: Right heel with a large scar tissue noted. Laboratory Data: WBC 11.7, down from 19.4; hemoglobin 9.3; platelets are 78. Chemistry shows sodium 127, potassium 3.9, chloride 130, bicarb 27, BUN 64, creatinine 1.66, glucose is 232. Procalcitonin is 15.22. A CT of chest and abdomen done on 09/15 shows that patient has partial resolution of right lobe pneumonia. No change in his multiple hepatic masses, probably neoplasm. A head CT done on 10/02 shows no intracranial acute findings. Assessment And Plan: A 69-year-old [facility] resident, coming in with right lower lobe pneumonia and right heel wound. Currently, on empiric treatment. Also with fevers and leukocytosis, possible sepsis. We will continue antibiotic and empiric treatment, offload the right heel and right ear area. Continue empiric treatment pending blood culture results. We will follow patient closely. Thank you Dr. Contreras for consult. NF/MODL Voice ID: [id number] Report ID: [id number] MTDLisa
--- NOTE | 2019-09-17 16:53 | PN ---
Date of Progress Note: 09/17/2019 Subjective: The patient was admitted with acute kidney injury secondary to prerenal. Patient has ed kuldeep. Patient received diuresis yesterday. Physical Examination: Vital Signs: Blood pressure 100/61, pulse of 87, afebrile. The patient had good urine output of 130 0. Chest: Faint crackles on the right base. Heart: S1 and S2 are regular. Abdomen: Soft, nonten agus. Extremities: +1 edema. Laboratory Data: WBC 11.7, H and H of 9.3/28.2, platelets 78. Sodium 151, potassium 3.9, bicarb 27, chloride 120, BUN 64, creatinine 1.66, calcium 7.3, phosphorus 2.1, magnesium of 3. Current Medications: The patient on include: D5 half, cefepime, vancomycin, midodrine, benzonatate, Depakote, gabapentin, breathing treatment. Assessment And Plan: 1.Acute kidney injury secondary to prerenal. Continue to recover. We will continue hydration. I a m going to change the IV fluid to D5 in the presence of the hypernatremia. Patient looked to me, silviano arcos. We will give single dose of Lasix, and we will follow up. 2.Hypernatremia secondary to depletion. Continue free water. Change IV fluid to D5. 3.Hypokalemia. We will supplement. 4.Hypophosphatemia. We will hold on any supplement for the time being. 5.Hyperchloremic alkalosis. We will change IV fluids. 6.Rhabdo, resolving. 7.Infection, unknown source. We will follow up with ID. Continue current antibiotic. VIOLET/LEDY Voice ID: [id number] Report ID: [id number]
--- NOTE | 2019-09-17 21:17 | CON ---
Date of Consultation: 09/15/2019 Diagnosis: Left heal necrotic ulcer. History Of Present Illness: This is the case of a 69-year-old patient with multiple medical problems , including Alzheimer, dementia, schizophrenia, hypertension, chronic kidney disease, admitted to the hospital for all these medical problems found to have a left heel decubitus ulcer with necrotic tiss ue present and a surgical consult was obtained. No information could be obtained from the patient, t here is a family member at bedside and he has also limited information. Surgical History: Unable to be obtained. Family History: Noncontributory. Medical Problems: As above. Allergies: NONE. Medications: Reviewed. Review of Systems: Unable to be obtained. Physical Examination: General: Patient is awake, but does not give us any information. Chest: Clear. Abdomen: Soft and depressible. Extremities: Over the bilateral heel area, dorsalis pedis pulses still present, although diminished. Over the left heel area patient has about a 5/5 cm pressure ulcer with necrotic tissue on top, may be stage 4. Some fluctuance present on it. Laboratory Data: Blood work shows WBC count of 11.7, coming from 19, hemoglobin of 9.3, INR of 1.36, potassium 3.9. Assessment: 69-year-old patient with pressure ulcer of the left heel region, patient was debrided. The benefits and risks were explained to the patient and also the family member at the bedside, william graff we are trying to find out who is the 1 giving consent for this patient with benefits and risks ex plained which include, but are not limited to infection, bleeding, damage to adjacent structures, ane sthesia complications, recurrence of myocardial infarction, and even . He also understands the importance of offloading of that area and also nutrition. HM/MODL Voice ID: [id number] Report ID: [id number]
[2019-09-18 03:23] LABS: Absolute Lymphocytes (CBC) 1.3 K/uL (0.7-4.9); Basophils % 0.4 % (0-1.3); Hematocrit 26.3 % (39.6-49.0); Lymphocytes % 14.7 % (15.3-44.8); MPV 11.1 fL (7.6-11.3)
[2019-09-18 03:47] LABS: Albumin 1.3 g/dL (3.4-5.0); Magnesium 2.9 mg/dL (1.8-2.4); Phosphorus 1.1 mg/dL (2.5-4.9); Potassium 3.8 mmol/L (3.5-5.1)
[2019-09-18] MEDS ORDERED: VANCOMYCIN 1.25 GM in NA CHLORIDE 0.9% 250 ML IVPB SCH (04:00)
[2019-09-18] MEDS: D5W 1,000 ML IV SCH ×2 (06:13→21:17)
[2019-09-18] MEDS: CEFEPIME/SWI 2gm 2 GM/20 ML SYR IVP SCH (08:10)
[2019-09-18] MEDS: LEVOTHYROXINE SOD 0.1 MG TAB FT SCH ×2 (09:00→14:07)
[2019-09-18] MEDS: ESCITALOPRAM 20 MG TAB FT SCH ×2 (09:00→14:08)
[2019-09-18] MEDS: DIVALPROEX NA 125 MG CAP FT SCH ×3 (09:00→21:17)
[2019-09-18] MEDS: QUETIAPINE 100MG TAB FT SCH ×2 (09:00→14:07)
[2019-09-18] MEDS: BENZTROPINE 1 MG TAB FT SCH ×3 (09:00→21:18)
[2019-09-18] MEDS: THIAMINE 200 MG/2 ML INJ IVP SCH ×2 (09:00→14:08)
[2019-09-18] MEDS ORDERED: NA CHLORIDE 0.9% 1,000 ML ONE (10:34)
[2019-09-18] MEDS ORDERED: JEVITY 1.5 CAL LIQUID 1,000 ML BOT RTH SCH ×2 (11:00→16:46)
[2019-09-18] MEDS ORDERED: COLLAGENASE 30 GM OINTMENT TOP ONE (12:43)
[2019-09-18] MEDS ORDERED: FENTANYL CITR 100 MCG/2 ML ONE (12:53)
[2019-09-18] MEDS ORDERED: MIDAZOLAM HCL 2 MG/2 ML INJ ONE (12:53)
[2019-09-18] MEDS ORDERED: propofoL 200 MG/20 ML VIAL IV ONE (12:53)
[2019-09-18] MEDS ORDERED: LIDOCAINE 2% MPF 5 ML VIAL ONE (12:53)
--- NOTE | 2019-09-18 13:22 | P.BOP ---
Preoperative diagnosis: left heel decubitus ulcer stage 3 Postoperative diagnosis: same Primary procedure: Excisional debridement subQ of left heel decubitus ulcer 6.5 x 6 x 0.7 cm Estimated blood loss: <10cc Specimen: culture Findings: necrotic tissue removed Anesthesia: Local Complications: None Transferred to: Recovery Room Condition: Good
[2019-09-18 15:23] LABS: Absolute Lymphocytes (CBC) 1.5 K/uL (0.7-4.9); Basophils % 0.4 % (0-1.3); Hematocrit 26.8 % (39.6-49.0); Lymphocytes % 17.8 % (15.3-44.8); MPV 10.5 fL (7.6-11.3); RBC Red Blood Cell Count 2.95 M/uL (4.33-5.43)
[2019-09-18 15:50] LABS: Blood Morphology Comment NOT SEEN (NOT SEEN); Platelet Estimate DECR
[2019-09-18] MEDS ORDERED: GLUCAGON 1 MG/VIAL IM PRN (16:45)
[2019-09-18] MEDS ORDERED: D50W 25 GM/50 ML SYRINGE/VIAL IV PRN (16:45)
[2019-09-18] MEDS: INSULIN -REGULAR HUMAN 50 UNIT/0.5 ML ML SQ SCH (18:00)
[2019-09-18 18:40] LABS: Protime INR 1.25
[2019-09-18 19:19] LABS: Ferritin 925.9 ng/mL (26-388); Folic Acid, (Folate) 7.3 ng/mL (3.1-17.5)
--- NOTE | 2019-09-18 20:17 | PN ---
Date of Progress Note: 09/18/2019 Subjective: The patient seen and examined. Chart reviewed and case discussed with RN and Dr. Delarosa. Patient is still spiking some low-grade fevers. No family present at the bedside. Patient is going for debridement today. Medications: List reviewed. Physical Examination: Vital Signs: Temperature 100.2, heart rate 79, blood pressure 117/60, respirations 16, O2 of 95% on 2.5 L. General: Awake, alert, nonverbal, demented male. Does not appear to be any acute distress, slightly ill-appearing. CV: S1, S2. Regular rate and rhythm. Peripheral pulses present. Respiratory: Diminished breath sounds at the bases, poor expiratory effort. No wheezing or stridor. Gastrointestinal: Abdomen is soft, nontender, nondistended. Positive bowel sounds. PEG tube in place. Extremities: No clubbing, cyanosis, or edema. Neurologic: Nonfocal. Patient is nonverbal. Moves all 4 extremities. Laboratory Data: Sodium 152, potassium 3.8, chloride 119, CO2 of 30, BUN 44, creatinine 1.18, glucose 228, calcium 7.5, phosphorus 1.9, magnesium 2.9, albumin 1.3. WBC 9, H and H 8.7 and 26.3, platelets 50, neutrophils 69.8%. Wound cultures pending. Blood cultures, staph, coagulase negative, remainder bottles are negative. Assessment And Plan: 69-year-old male with: 1. Severe sepsis with shock, improving. White blood cell count now normalized. Cultures are negative to date, likely secondary to pneumonia and foot infection. 2. Hypertensive shock, resolved with IV fluid boluses. Blood pressure improved. 3. Acute kidney injury. Kidney function is normalized. 4. Severe protein-calorie malnutrition. Albumin is 1.3. We will continue with supplements. 5. Hypophosphatemia. We will replace and monitor. 6. Hypomagnesemia. We will continue to monitor. 7. Hypernatremia. IV fluids have been adjusted. 8. Pneumonia, possibly gram-negative pneumonia on the right lower lobe. Continue with IV antibiotics. 9. Normocytic, normochromic anemia. We will continue to monitor H and H, transfuse as needed, may be dilutional. 10. Thrombocytopenia, possibly heparin-induced thrombocytopenia. We will consult on Hematology and initiate workup. 11. Alzheimer dementia without behavioral disturbance, stable. 12. Dysphagia, status post PEG tube. We will resume feeds. 13. Nausea and vomiting. KUB did not show any obstruction. No further episodes. 14. Deep venous thrombosis prophylaxis. We will continue with SCDs. Patient has platelets of 50. 15. Hepatic mass: Family made aware on admission. Unclear etiology. Would not recommend any further invasive diagnostic workup due to poor performance status and over all poor prognosis. Patient has advanced dementia, bed bound, on PEG tube feeds. /LEDY Voice ID: [id number] Report ID: [id number] MTDD
[2019-09-18] MEDS: ACETAMINOPHEN 500 MG TAB PO PRN (21:18)
--- NOTE | 2019-09-18 22:14 | P.CNS ---
Date of Consult: 09/18/19 (Hem/Onc) Reason for consult: thrombocytopenia HPI:Patient with severe Alzheimer's dementia admitted with altered mental status , respiratory distress and fevers in septic shock secondary to infected foot ulcer and pneumonia. Pt was resuscitated with IV fluids, pressor support and broad spectrum antibiotics since admission. Debridement surgery of the foot done today. Renal functions seems to have improved with hydration. Hematology consulted for worsening thrombocytopenia. Pt unresponsive to verbal stimuli and all history obtained from chart review. date plt count 164 92 09/17- 78 09/18- 50----> 38 H/o heparin exposure since 09/15/19. Discontinued 09/18/19 H/o prior heparin exposure prior hospital admission 09/02/19 Chart review shows evidence of cirrhosis with recent imaging mentioning multiple hepatic masses h/o prior similar episodes of mild to moderate thrombocytopenia since 2016 Also, pt noted to be anemic with Hb 8.8g gradually downtrended from 11.8gm on Past Medical History: Alzheimer's dementia, hypertension, schizophrenia, chronic kidney disease. Patient also has liver cirrhosis and masses. Surgical History: Unable to obtain. Social History: Patient is a [facility] resident at an Alzheimer's unit. No smoking or drinking. Family History: Noncontributory. Review of Systems: Unable to be obtained due to patient's medical condition. EXAM: Pt lying in bed in mild respiratory distress Does not respond to verbal stimuli HEENT: AT/NC, pallor+ RS: Decreased BS both bases CVS: S1S2; no added sounds P/a: Distended, s/c edema, peg insitu, BS + Neuro: Does not respond to stimuli ext: pedal edema; SCD and dressing+ Labs reviewed/ as above WBC 8.2; left shift with myelocytes MCV 90 PT15.9/PTT 36 cr 1.18 (ARF on CKD 2.02) Bi 1/ direct bi 0.7 Alb 1.3/Meg 4.4/prealb 5.5 Procalcitonin 4.6 clumping 09/02/19 Hapto 301 AST 128/ALT 16/alp 814 ldh 898 (09/02/19) Assessment/recommendations: 69 yr old with advanced Alzheimer's dementia admitted with septic shock, noted to develop worsening thrombocytopenia. 1. Thrombocytopenia: Seems multifactorial with sepsis playing a major role. (consumptive coagulopathy, DIC, hypersplenism secondary to cirrhosis, possible clumping, antibiotics, heparin etc). Given h/o prior heparin exposure, there seems to atleast low to intermediate probability of PRABHA. No increased in schistocytes reported. Given his other co-morbidities including anemia and poor cognition secondary to severe dementia, I am inclining to monitor plt count for now. Will consider alternate anticoagulation like fondaparinox or argatroban if further evidence to support PRABHA. No evidence of bleeding or thrombosis at this time. Check peripheral smear, LDH, retic count, coags, fibrinogen, heparin plt factor 4 antibodies with reflex to HIEU. Transfuse single donor platelets if any evidence of bleeding [place] [id number]. He seems to be hemodynamically stable now and I am expecting plt count to improve once sepsis resolves. Monitor cbc daily. 2. Anemia: Also noted to be anemic with gradual downtrend from 11.8gm since . No evidence of bleeding noted. Check iron panel, B12, folate, LDH. Prior LDH significantly elevated (unclear etiology but possibly related to sepsis/ ? hemolysis etc). Transfuse PRBC if Hb is less than 7gm. 3. Hepatic masses: Unclear if true masses or is it due to nodular cirrhosis contour. Nevertheless, he does not seem to be a candidate to explore possible etiology and subject him to further work up for the same. Pt is quite ill and given his poor cognition and other co-morbidities, I do not recommend aggressive work up but would rather observe and closely monitor and render supportive care. Advanced care directives including DNR status needs to be discussed with family. We will continue to follow up. Please do not hesitate to contact us should you have questions or concerns.
--- NOTE | 2019-09-18 23:53 | OP ---
Date of Procedure: 09/18/2019 Surgeon: Rivera Delarosa MD Diagnosis: Left heel decubitus ulcer, stage III. Postoperative Diagnosis: Left heel decubitus ulcer, stage III. Procedure: Excisional debridement of subcu of left heel decubitus ulcer, 6.5 x 6 x 0.7 cm. Anesthesia: Sedation plus local. Findings: Necrotic tissue removed. Cultures were obtained. Indications: This is a case of a 69-year-old patient with the left heel decubitus ulcer. The family fully explained the benefits, alternatives, and risks of debridement which include but are not limit ed to infection, bleeding, damage to adjacent structures, anesthesia complication, nonhealing wound, MD, and even . He also understands this may not relieve symptoms. He may need more than one wylie rgical intervention. They understand the importance of nutrition and off-loading. Consent was alex d. Description Of Procedure: Patient was brought to the operating room, placed in supine position. Ane sthesia was done without complication. A time-out was called. Left heel was prepped and draped in a sterile fashion. Local anesthetic was applied followed by sharp incision with an 11 blade. Necroti c tissue was removed. Cultures were obtained. Hemostasis obtained and area was packed with triple a ntibiotics and dry gauze. Patient tolerated the procedure well. Patient was sent to recovery in stable condition. SHARLENE/LEDY Voice ID: [id number] Report ID: [id number]
[2019-09-19] MEDS: INSULIN -REGULAR HUMAN 50 UNIT/0.5 ML ML SQ SCH ×5 (00:04→23:56)
[2019-09-19] MEDS: ACETAMINOPHEN 500 MG TAB PO PRN ×2 (01:28→05:25)
--- NOTE | 2019-09-19 01:40 | PN ---
Date of Progress Note: 09/18/2019 Chief Complaint: Acute kidney injury secondary to prerenal azotemia. Patient has legs edema. Patient received diuretics to control volume overload. Patient developed hypernatremia secondary to volume depletion. He will continue IV fluids with D5W. Hypophosphatemia. Patient received supplementation. Rhabdomyolysis is gradually resolving. Review of Systems: Denies fever, chills. Physical Examination: Lungs: Clear to auscultation bilaterally. Heart: S1, S2. Abdomen: Soft, benign. Extremities: Slight edema. Laboratory Data: BUN 64, creatinine 1.66, phosphorus 2.1, calcium 7.3. Sodium 131, potassium 3.9, bicarbonate 27. Impression And Plan: 1. Acute kidney injury. Continue IV fluids. Adjust fluid to control hypernatremia. 2. Hypokalemia. Supplementation as needed. Potassium level is improving. 3. Rhabdomyolysis is resolving. 4. Infection of unknown source. Continue current antibiotics, pending cultures. I spent total 36 min including 25 min to coordinate care plan KARTHIK/LEDY Voice ID: [id number] Report ID: [id number] YIN
[2019-09-19] MEDS: D5W 1,000 ML IV SCH ×3 (03:35→20:43)
[2019-09-19 04:45] LABS: Albumin 1.2 g/dL (3.4-5.0); Phosphorus 1.1 mg/dL (2.5-4.9); Potassium 3.8 mmol/L (3.5-5.1)
[2019-09-19] MEDS ORDERED: VANCOMYCIN 1.5 GM in NA CHLORIDE 0.9% 500 ML IVPB SCH (05:00)
--- NOTE | 2019-09-19 08:31 | PN ---
Subjective: The patient lying in bed. No new acute event except debridement done earlier today by s urgical team. Objective: Vital Signs: Temperature 97.8, pulse 74, respirations 16, blood pressure 108/61. Lungs: Basal crackles. Heart: S1 and S2 are regular. Abdomen: Soft, nontender. Bowel sounds present. Extremities: No edema. Feet surgical dressing. Laboratory Data: WBC 9, hemoglobin 8.7, platelets are 50. Chemistry shows sodium 152, potassium 3.8 , chloride 119, bicarb 30, BUN 44, creatinine 1.18, glucose is 228. Currently, on cefepime and vanco mycin. Assessment And Plan: Bilateral heel wound with new thrombocytopenia. We will stop the patient on va ncomycin, and consider having a hematology consultation for further evaluation. We will follow the p atient closely. Repeat CBC to monitor for thrombocytopenia. NF/MODL Voice ID: [id number] Report ID: [id number]
[2019-09-19] MEDS: CEFEPIME/SWI 2gm 2 GM/20 ML SYR IVP SCH (09:22)
[2019-09-19] MEDS: DIVALPROEX NA 125 MG CAP FT SCH ×2 (09:22→20:41)
[2019-09-19] MEDS: BENZTROPINE 1 MG TAB FT SCH ×2 (09:23→20:41)
[2019-09-19] MEDS: QUETIAPINE 100MG TAB FT SCH (09:23)
[2019-09-19] MEDS: LEVOTHYROXINE SOD 0.1 MG TAB FT SCH (09:23)
[2019-09-19] MEDS: ESCITALOPRAM 20 MG TAB FT SCH (09:23)
[2019-09-19] MEDS: THIAMINE 200 MG/2 ML INJ IVP SCH (09:30)
--- NOTE | 2019-09-19 12:55 | P.PN ---
Subjective Date of Service: 09/19/19 Pt admitted with septic shock , have ZEKE today S/P PEG placement started on tube feeding Cr at baseline Sodium 150, will increase free water to 200ml Q4hrs trace edema low plt , Hematology on baord Physical Examination - Vital Signs Temperature: 99.2 F Blood Pressure: 102/60 Pulse: 83 Respirations: 20 Pulse Ox (%): 97 - Physical Exam General: Alert, In no apparent distress, Other (Non verbal ) HEENT: Atraumatic Neck: Supple, Without JVD or thyroid abnormality Respiratory: Clear to auscultation bilaterally, Normal air movement Cardiovascular: Normal pulses, Regular rate/rhythm, Normal S1 S2, No rubs, No murmurs, Edema (trace edema) Gastrointestinal: Soft and benign, Other (PE tube ) Musculoskeletal: Swelling Assessment And Plan - Plan ZEKE resolved due to dehydration and septic GN renal dose meds Hypernatremia will increase free water via PEG to 200ml Q4hrs Hypophsophatemia will replace Septci shock Cont abx S/P debridment cont midodrine thrombocytopenia hmatology on board
[2019-09-19] MEDS ORDERED: POTASSIUM PHOS 30 MM in NA CHLORIDE 0.9% 500 ML IV ONE (12:57)
[2019-09-19] MEDS: COLLAGENASE 30 GM OINTMENT TOP SCH (13:57)
[2019-09-19 15:14] LABS: Magnesium 2.7 mg/dL (1.8-2.4); Phosphorus 1.4 mg/dL (2.5-4.9)
--- NOTE | 2019-09-19 16:37 | PN ---
Subjective: Patient is lying in bed. No new acute event. Chart reviewed. Objective: Vital Signs: Temperature 99, pulse 83, respirations 18, blood pressure 102/60. Lungs: Basal crackles. Heart: S1, S2. Regular. Abdomen: Soft, nontender. Bowel sounds present. Extremities: Wounds noted in the lower extremities, status post debridement. Laboratory Data: WBC 8.2, hemoglobin 8.8, platelets are 38. Medications: Currently, patient on cefepime. Assessment And Plan: Patient is lying in bed with heel wound and status post debridement. Thrombocy topenia. Leukocytosis has resolved. Patient currently on cefepime. Continue to monitor platelets. We will follow the patient closely. We will consult Pharmacy to evaluate any medication for thrombo cytopenia. NF/MODL Voice ID: [id number] Report ID: [id number]
--- NOTE | 2019-09-19 18:22 | PN ---
Date of Progress Note: 09/19/2019 Subjective: Patient seen and examined. Chart reviewed and case discussed with RN and Dr. Long. Patient has no change in his status. No family at the bedside. We will contact family to update. Medication List: Reviewed. Physical Examination: Vital Signs: Temperature 98.4, heart rate 92, blood pressure 104/76, respirations 18, O2 92% on 2 L via nasal cannula. General: Asleep, but arousable, demented elderly male, ill-appearing. CV: S1, S2. Regular rate and rhythm. Peripheral pulses present. Respiratory: Diminished breath sounds. No wheezing or stridor. No use of accessory muscles. Gastrointestinal: Abdomen is soft. PEG tube in place. Nondistended. Positive bowel sounds. Extremities: No clubbing or cyanosis. No edema. Neurologic: Nonfocal. Patient is nonverbal. Laboratory Data: WBC 8.2, H and H 8.8/26.8, platelets 38, neutrophils 64%. Fibrinogen 294. INR 1.25. Sodium 150, potassium 3.8, chloride 117, CO2 of 30, BUN 30, creatinine 1.08, glucose 272, calcium 7.4, phosphorus 1.1. Iron panel; iron is 10, TIBC 143, transferrin 102, ferritin 925, lactate dehydrogenase 943, albumin 1.2, vitamin B12 1355, folate 7.3. Cultures, no growth to date. Left heel wound culture showing no growth to date as well. Assessment And Plan: 69-year-old male with: 1. Severe sepsis with shock, improved. White blood cell count normalized. Cultures negative to date. Wound cultures from the left heel are pending. Patient had procedure yesterday. 2. Hypotensive shock, resolved with IV fluids. Blood pressure is normalized. 3. Acute kidney injury. Kidney function improved. Continue to monitor creatinine. 4. Left heel wound, status post debridement. Wound cultures are pending. Continue antibiotics. 5. Thrombocytopenia, possibly heparin-induced thrombocytopenia. I appreciate Dr. Long's input. Workup is underway. Patient not a candidate for fondaparinux at this time, has a very poor functional status and is demented, has very low quality of life. We will continue to monitor platelet levels and follow up with workup for heparin-induced thrombocytopenia. 6. Hypophosphatemia. We will replace and monitor. 7. Hypomagnesemia. We will continue to monitor, replace. 8. Hypernatremia. Continue with D5W. Appreciate Nephrology input. 9. Pneumonia, likely gram-negative, right lower lobe. Continue antibiotics. 10. Normocytic normochromic anemia. Patient does have iron deficiency. We will transfuse as needed. Monitor H and H. 11. Alzheimer dementia without behavioral disturbance, advanced. Patient is fully dependent, nonverbal. 12. Dysphagia, status post PEG tube placement. Continue tube feeds. 13. Nausea and vomiting, resolved. 14. Deep venous thrombosis prophylaxis. SCDs. No chemical anticoagulation due to thrombocytopenia. ADDENDUM: Spoke to family - son at length. Over all poor prognosis. Recommend care and comfort measures. Family not interested at this time. MASOUD Voice ID: [id number] Report ID: [id number] MTDD
[2019-09-20 04:28] LABS: Albumin 1.2 g/dL (3.4-5.0); Phosphorus 1.4 mg/dL (2.5-4.9); Potassium 4.4 mmol/L (3.5-5.1)
[2019-09-20] MEDS ORDERED: GLUCERNA 1.5 CAL 1,000 ML BOT FT SCH (06:00)
[2019-09-20] MEDS: INSULIN -REGULAR HUMAN 50 UNIT/0.5 ML ML SQ SCH ×4 (06:08→20:36)
[2019-09-20] MEDS: THIAMINE 200 MG/2 ML INJ IVP SCH (08:40)
[2019-09-20] MEDS: CEFEPIME/SWI 2gm 2 GM/20 ML SYR IVP SCH (08:40)
[2019-09-20] MEDS: QUETIAPINE 100MG TAB FT SCH (08:41)
[2019-09-20] MEDS: LEVOTHYROXINE SOD 0.1 MG TAB FT SCH (08:41)
[2019-09-20] MEDS: COLLAGENASE 30 GM OINTMENT TOP SCH (08:41)
[2019-09-20] MEDS: BENZTROPINE 1 MG TAB FT SCH ×2 (08:41→23:00)
[2019-09-20] MEDS: ESCITALOPRAM 20 MG TAB FT SCH (08:41)
[2019-09-20] MEDS: DIVALPROEX NA 125 MG CAP FT SCH ×2 (08:42→23:00)
[2019-09-20 08:57] LABS: Basophils % 0.4 % (0-1.3); Hematocrit 27.4 % (39.6-49.0); Lymphocytes % 15.7 % (15.3-44.8); MPV 11.3 fL (7.6-11.3); RBC Red Blood Cell Count 3.04 M/uL (4.33-5.43)
[2019-09-20] MEDS: D5W 1,000 ML IV SCH ×3 (09:00→19:00)
[2019-09-20 09:21] LABS: Protime INR 1.26
[2019-09-20 10:35] LABS: Anisocytosis 1+; Blood Morphology Comment NOTED (NOT SEEN); Platelet Estimate DECR
--- NOTE | 2019-09-20 11:43 | P.PN ---
Subjective Date of Service: 09/20/19 Primary Care Provider: alf Chief Complaint: Decrease mentation Subjective: Demented (Patient with dementia. Family at bedside. Case and plan of care discussed with family with charge nurse present. making decisions with the help of children.) Physical Examination - Vital Signs Temperature: 99.3 F Blood Pressure: 105/66 Pulse: 96 Respirations: 20 Pulse Ox (%): 94 - Physical Exam General: Demented (Severe dementia) HEENT: Atraumatic Neck: Supple Respiratory: Clear to auscultation bilaterally, Normal air movement Cardiovascular: Normal pulses, Regular rate/rhythm Gastrointestinal: No rebound, No guarding, Other (NG tube) Musculoskeletal: No tenderness, No warmth Integumentary: Other (Left heel covered) - Studies Medications List Reviewed: Yes Assessment & Plan [facility]charge [facility] ([facility] - Code Status/Comfort Care Code Status Assessed: Yes (Code status readdressed with and family. Patient DNR) Physician Review Additional Text: Medical problem list: Toxic encephalopathy related to severe sepsis with shock likely related to right lower lobe pneumonia Left heel wound status post debridement Acute renal injury likely related to above with hypernatremia, hypo magnesium, hypophosphatemia Thrombocytopenia likely related to sepsis Normocytic normochromic anemia likely chronic with history of iron deficiency Alzheimer's dementia, severe Diabetes mellitus type 2 insulin-dependent Dysphagia with history of PEG tube Hypothyroidism Plan: Toxic encephalopathy related to severe sepsis with shock likely related to right lower lobe pneumonia: Lab and notes reviewed. Pro calcitonin improved. Blood cultures negative. Wound culture also negative. Case discussed with pharmacy. Will transition to Augmentin. Also discuss plan of care with and children who were present. They understand that the patient's condition is poor. Overall prognosis is poor. Advanced directives readdress. and children desire for the patient to be DNR. Hospice discussion was addressed. They are in agreement. This can be arranged at the [facility]. Will talk to social media specialist to help transition patient from the the hospital to the [facility] with hospice in place. Patient will require [id number] DNR. Anticipate discharge to [facility] likely within the next day once transport and approval have been arranged.. Left heel wound status post debridement: Continue with current wound care. Acute renal injury likely related to above with hypernatremia, hypo magnesium, hypophosphatemia: Overall improved. Will discuss with nephrology about current IV fluids and plan of care. Thrombocytopenia likely related to sepsis: This also has improved. Will discuss with hematology. Will have pharmacy adjust medication accordingly. Normocytic normochromic anemia likely chronic with history of iron deficiency: Overall stable peer will monitor closely. Alzheimer's dementia, severe: Continue as above. Diabetes mellitus type 2 insulin-dependent: Continue Accu-Cheks and sliding scale. Dysphagia with history of PEG tube: Continue with tube feeds. Hypothyroidism: Continue with medication Time Spent Managing Pts Care (In Minutes): 55
[2019-09-20] MEDS ORDERED: NEPRO 1,000 ML BOT FT SCH (12:00)
[2019-09-20] MEDS: NEPRO 1,000 ML BOT FT SCH (12:05)
--- NOTE | 2019-09-20 16:50 | PN ---
Subjective: Patient lying in bed. No new acute event. Objective: Vital Signs: Temperature 99.3, pulse 96, respirations 20, blood pressure 105/66. Lungs: Basal crackles. Heart: S1 and S2 are regular. Abdomen: Soft, nontender. Bowel sounds present. Extremities: No edema. Assessment And Plan: 1.Status post toxic encephalopathy. 2.Left heel wound, status post debridement. 3.Thrombocytopenia. Platelets are starting to improve. WBC elevated 12.7. Continue antibiotic and supportive care. Wound care. We will follow the patient as needed. NF/MODL Voice ID: [id number] Report ID: [id number]
[2019-09-20] MEDS ORDERED: POTASSIUM PHOS 10 MM in NA CHLORIDE 0.9% 250 ML IV ONE (22:13)
[2019-09-20] MEDS: AMOX/K CLAV 500 MG TAB FT SCH (22:59)
[2019-09-21] MEDS: INSULIN -REGULAR HUMAN 50 UNIT/0.5 ML ML SQ SCH ×5 (00:17→15:45)
[2019-09-21] MEDS: D5W 1,000 ML IV SCH ×3 (00:18→13:42)
[2019-09-21 06:07] LABS: Albumin 1.1 g/dL (3.4-5.0); Phosphorus 1.5 mg/dL (2.5-4.9); Potassium 4.4 mmol/L (3.5-5.1)
[2019-09-21] MEDS ORDERED: POTASSIUM PHOS 10 MM in NA CHLORIDE 0.9% 250 ML IV ONE (08:00)
[2019-09-21 08:49] VITALS: O2SAT 96
[2019-09-21] MEDS: COLLAGENASE 30 GM OINTMENT TOP SCH (09:00)
--- NOTE | 2019-09-21 09:54 | PN ---
Date of Progress Note: 09/20/2019 Subjective: Patient was admitted with symptomatic hypernatremia secondary to GI loss. Physical Examination: Vital Signs: Blood pressure 105/67, pulse 100, afebrile. Patient had good urine output of 500. Chest: Decreased entry bilateral base. Heart: S1, S2 regular. Abdomen: Soft, nontender. Extremities: Plus edema. Laboratory Data: WBC 12.7, Sodium 149, potassium 4.3, bicarb 28, BUN is 27, creatinine is 1, calcium , phosphorus 1.4, magnesium 2.7. Current Medications: 1. Glucerna. 2. Free water. 3. Breathing treatment. 4. Midodrine. 5. Depakote. 6. KCl. Assessment And Plan: 1. Acute kidney injury secondary to prerenal, recovered, resolved. 2. Hypernatremia 2nd to deplational We will increase the free water and we will place the patient on aggressive sliding scale of the insulin. We will follow up the patient. 3. Hypophosphatemia. We will supplement. 4. Malnourished. Continue feeding tube. 5. Altered mental status secondary to dehydration . We will follow up with the primary. BEATRICE Voice ID: [id number] Report ID: [id number] YIN
[2019-09-21] MEDS: DIVALPROEX NA 125 MG CAP FT SCH (09:59)
[2019-09-21] MEDS: AMOX/K CLAV 500 MG TAB FT SCH (10:02)
[2019-09-21] MEDS: QUETIAPINE 100MG TAB FT SCH (10:02)
[2019-09-21] MEDS: BENZTROPINE 1 MG TAB FT SCH (10:02)
[2019-09-21] MEDS: ESCITALOPRAM 20 MG TAB FT SCH (10:02)
[2019-09-21] MEDS: LEVOTHYROXINE SOD 0.1 MG TAB FT SCH (10:03)
[2019-09-21] MEDS: THIAMINE 200 MG/2 ML INJ IVP SCH (10:03)
[2019-09-21] MEDS: NEPRO 1,000 ML BOT FT SCH (11:14)
[2019-09-21] MEDS ORDERED: NA CHLORIDE 0.9% 250 ML IV PRN (12:17)
[2019-09-21] MEDS ORDERED: NA CHLORIDE 0.9% 250 ML IV ONE (12:18)
[2019-09-21 12:22] VITALS: TEMP 98
--- NOTE | 2019-09-21 12:29 | P.DS ---
Admission Date: 09/15/19 Discharge Date: 09/21/19 Primary Care Provider: group home Disposition: TRANSFER TO GROUP HOME Discharge Condition: FAIR Reason for Admission: Decrease mentation Consultations: Hematology-Dr. Long Nephrology-Dr. Urrutia Pulmonary-Dr. Tristan Infectious disease-Dr. Roberts Surgery-Dr. Delarosa Procedures: CT head: FINDINGS: No intracranial hemorrhage, mass, edema or shift of mid-line structures. No cortical edema or sulcal effacement. Patient has very advanced for age atrophy. Chronic ischemic changes are present but minimal. No abnormal extra-axial fluid collections. Ventricles are in proportion to volume loss. Arterial and physiologic calcifications are present. Mastoid air cells and visualized portions of the paranasal sinuses are clear of acute finding. No acute bony findings. IMPRESSION: Negative non-contrast CT head examination for acute finding. Advanced for age atrophy similar to comparison. CT Chest/Ab/Pelvis: FINDINGS: The evaluation of mediastinum, julian, vessels and solid organs is limited secondary to the lack of IV contrast administration No mediastinal or hilar lymphadenopathy is seen. A pleural effusion is not present. A pericardial effusion is not seen. Partial resolution right lower lobe opacity. Left lung is clear The cirrhotic liver. There are multiple hepatic masses. The Spleen, pancreas, adrenals and kidneys appear grossly normal There is no evidence of diverticulitis. A percutaneous tube within the stomach. Lynn catheter within the bladder. Small amount of ascites IMPRESSION: Partial resolution in a right pneumonia No change in the multiple hepatic masses probably neoplasm Surgery: Date of Procedure: 09/18/2019 Surgeon: Rivera Delarosa MD Diagnosis: Left heel decubitus ulcer, stage III. Postoperative Diagnosis: Left heel decubitus ulcer, stage III. Procedure: Excisional debridement of subcu of left heel decubitus ulcer, 6.5 x 6 x 0.7 cm. Anesthesia: Sedation plus local. Findings: Necrotic tissue removed. Cultures were obtained. 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 Patient presented with fever, cough and chills. Patient presented with sepsis. Pneumonia was identified. Patient admitted to the ICU for further evaluation and treatment. Hospital Course: Patient presented with toxic encephalopathy related to severe sepsis with shock secondary to right lower lobe pneumonia. Patient was admitted and treated. Patient required vasopressor therapy. He was eventually weaned off. Pulmonology consulted. Cultures remain negative. Patient with other comorbid conditions. Patient has decline in health over the past several months. Advanced directives readdress with family as well as plan of care. After further discussion family request patient to be DNR. Hospice at senior care was pursued. This was arranged. At discharge patient will continue with Augmentin 500 mg twice daily for 7 days. Patient may continue with oxygen to maintain sats above 93%. At discharge patient will return back to the senior care with [id number] DNR in place. Patient will be initiated on hospice. Case discussed at length with medical power of vortex operator son and . Both in agreement with plan of care. Patient will continue with comfort measures. Family to decide further on whether to discontinue nutrition. This can be further addressed by hospice. Further adjustment in medication can be done by hospice. Patient was evaluated for left heel wound-stage III ulcer. This was evaluated by surgery. Surgical debridement was required. Patient may continue with current wound care. At discharge renal function appears to be at baseline. Patient with normal septic normochromic anemia. This is appears chronic. This has remained stable. Patient with underlying severe Alzheimer's dementia with depression. At discharge patient will continue with Aricept 10 mg daily, benztropine 0.5 mg twice daily, Depakote 750 mg twice daily, Lexapro 20 mg daily, and Seroquel 100 mg daily. Further adjustment can be done by senior care or hospice. Patient with diabetes mellitus type 2 insulin dependent. Patient may continue with sliding scale. Patient with hypothyroidism. Patient will continue with levothyroxine 100 mcg daily. Patient with history of dysphagia with PEG tube in place. Patient currently remains on PEG tube feeds. This may be continued. In light of his current situation and about to enter hospice, I discussed the possibility of stopping nutrition. Family is to decide on this. Further instruction may be provided by hospice. Patient with history of liver cirrhosis and liver lesions likely malignant in nature. Blood pressure has remained low. Patient may continue with midodrine 10 mg twice daily if blood pressure less than 100 systolic. Vital Signs/Physical Exam: Temp Pulse Resp BP Pulse Ox 98.0 F 76 18 82/56 L 98 09/21/19 12:00 09/21/19 12:00 09/21/19 12:00 09/21/19 12:00 09/21/19 12:00 General: Other (Severe dementia) HEENT: Atraumatic Neck: Supple Respiratory: Clear to auscultation bilaterally Cardiovascular: Regular rate/rhythm Gastrointestinal: Normal bowel sounds, Other (PEG tube in place) Neurological: Dementia (Severe dementia. Patient is bed bound) Laboratory Data at Discharge: WBC 12.7 K/uL (4.3-10.9) H D 09/20/19 08:43 Hgb 9.0 g/dL (13.6-17.9) L 09/20/19 08:43 Hct 27.4 % (39.6-49.0) L 09/20/19 08:43 Plt Count 66 K/uL (152-406) L D 09/20/19 08:43 PT 14.7 SECONDS (9.5-12.5) H 09/20/19 08:43 INR 1.26 09/20/19 08:43 APTT 33.3 SECONDS (24.3-36.9) 09/20/19 08:43 Sodium 142 mmol/L (136-145) 09/21/19 05:27 Potassium 4.4 mmol/L (3.5-5.1) 09/21/19 05:27 BUN 32 mg/dL (7-18) H 09/21/19 05:27 Creatinine 1.07 mg/dL (0.55-1.3) 09/21/19 05:27 Glucose 361 mg/dL (74-106) H 09/21/19 05:27 Phosphorus 1.5 mg/dL (2.5-4.9) L 09/21/19 05:27 Magnesium 2.7 mg/dL (1.8-2.4) H 09/19/19 14:25 Total Bilirubin 1.0 mg/dL (0.2-1.0) 09/15/19 12:15 AST 128 U/L (15-37) H 09/15/19 12:15 ALT 16 U/L (12-78) 09/15/19 12:15 Alkaline Phosphatase 814 U/L (45-117) H 09/15/19 12:15 Lipase 399 U/L (73-393) H 09/15/19 12:15 Home Medications: Acetaminophen 2 tab FT Q4HP PRN 09/02/19 Benztropine Mesylate 0.5 mg FT BID 09/02/19 Calcium Carbonate/Vitamin D3 [Oscal 500 + Vit D 200 Iu Tab*] 1 tab FT DAILY Donepezil HCl 2 tab FT BEDTIME 09/02/19 Escitalopram Oxalate 1 tab FT DAILY 09/02/19 Magnesium Oxide 400 mg FT DAILY 09/02/19 Quetiapine Fumarate [Seroquel] 1 tab FT DAILY 09/02/19 Acetaminophen 2 tab FT Q6HP PRN 09/15/19 Ascorbic Acid [Vitamin C*] 1 tab FT DAILY 09/15/19 Levothyroxine Sodium [Synthroid] 1 tab FT DAILY 09/15/19 Valproic Acid Syrup [Depakene Syrup*] 15 ml FT BID 09/15/19 Zinc Sulfate [Zinc Sulfate*] 220 mg FT DAILY 09/15/19 Amox/Clavulanate [Augmentin 500-125 mg Tab*] 500 mg FT BID #14 tab 09/21/19 Collagenase [Santyl Ointment*] 1 appl TOP DAILY #1 tube 09/21/19 Nepro 55 ml FT CONT #3 bot 09/21/19 New Medications: Amox/Clavulanate [Augmentin 500-125 mg Tab*] 500 mg FT BID #14 tab Collagenase [Santyl Ointment*] 1 appl TOP DAILY #1 tube Nepro 55 ml FT CONT #3 bot Patient Discharge Instructions: 1. Patient to return to senior care with hospice in place. Comfort measures to continue. 2. Patient presented with toxic encephalopathy related to severe sepsis with shock secondary to right lower lobe pneumonia. Patient was admitted and treated. Patient required vasopressor therapy. He was eventually weaned off. Pulmonology consulted. Cultures remain negative. Patient with other comorbid conditions. Patient has decline in health over the past several months. Advanced directives readdress with family as well as plan of care. After further discussion family request patient to be DNR. Hospice at senior care was pursued. This was arranged. At discharge patient will continue with Augmentin 500 mg twice daily for 7 days. Patient may continue with oxygen to maintain sats above 93%. At discharge patient will return back to the senior care with [id number] DNR in place. Patient will be initiated on hospice. Case discussed at length with medical power of vortex operator son and . Both in agreement with plan of care. Patient will continue with comfort measures. Family to decide further on whether to discontinue nutrition. This can be further addressed by hospice. Further adjustment in medication can be done by hospice. 3. Patient was evaluated for left heel wound-stage III ulcer. This was evaluated by surgery. Surgical debridement was required. Patient may continue with current wound care. At discharge renal function appears to be at baseline. 4. Patient with normal septic normochromic anemia. This is appears chronic. This has remained stable. 5. Patient with underlying severe Alzheimer's dementia with depression. At discharge patient will continue with Aricept 10 mg daily, benztropine 0.5 mg twice daily, Depakote 750 mg twice daily, Lexapro 20 mg daily , and Seroquel 100 mg daily. Further adjustment can be done by senior care or hospice. 6. Patient with diabetes mellitus type 2 insulin dependent. Patient may continue with sliding scale. 7. Patient with hypothyroidism. Patient will continue with levothyroxine 100 mcg daily. 8. Patient with history of dysphagia with PEG tube in place. Patient currently remains on PEG tube feeds. This may be continued. In light of his current situation and about to enter hospice, I discussed the possibility of stopping nutrition. Family is to decide on this. Further instruction may be provided by hospice. 9. Patient with history of liver cirrhosis and liver lesions likely malignant in nature. Blood pressure has remained low. Patient may continue with midodrine 10 mg twice daily if blood pressure less than 100 systolic. Diet: Continue current PEG tube feeds Activity: Bedrest Time spent managing pt's care (in minutes): 55
[2019-09-21] MEDS ORDERED: FUROSEMIDE 20 MG/ 2ML VIAL IV ONE (13:00)
[2019-09-21] MEDS: MIDODRINE HCL 5 MG TABLET FT PRN (13:42)
[2019-09-21 13:43] VITALS: BP 90/60
--- NOTE | 2019-09-22 04:33 | PN ---
Date of Progress Note: 09/21/2019 Subjective: Patient was admitted with hypernatremia. Yesterday, we changed IV fluid, changed feedin g to Nepro . Physical Examination: Vital Signs: Blood pressure of . Chest: Decreased air entry bilateral base. Heart: S1, S2. Regular. Systolic murmur. Abdomen: Soft, nontender. Extremities: +1 edema. Laboratory Data: H and H 06/30.4. Sodium 142, potassium 4.4, bicarb 29, BUN 32, creatinine 1, calciu m 7.3, phosphorus 1.9. Assessment And Plan: 1.Acute kidney injury secondary to prerenal, recovered, resolved. 2.Hypernatremia, status post change of the tube feeding with aggressive sliding scale. Sodium status post supplement. VIOLET/LEDY Voice ID: [id number] Report ID: [id number]
== END 2019-09-21 17:02 | DRG 853 ==
LOC: ER 12:09 → ERHOLD 14:49 → 2ND 16:11 → ERHOLD 16:11 → 3RD-ICU 16:57 → 4TH 09-16 11:05
PROVIDERS: ADMIT Family Medicine; ATTEND Family Medicine
PROC: 0JBR0ZZ Excision of Left Foot Subcutaneous Tissue and Fascia, Open Approach (ICD-10-PCS; principal; 2019-09-18 14:00)
DX: A41.9 Sepsis, unspecified organism (principal); L89.623 Pressure ulcer of left heel, stage 3; R65.21 Severe sepsis with septic shock; J18.9 Pneumonia, unspecified organism; E43 Unspecified severe protein-calorie malnutrition; G92 Toxic encephalopathy; M62.82 Rhabdomyolysis; E87.0 Hyperosmolality and hypernatremia; N17.9 Acute kidney failure, unspecified; E87.3 Alkalosis; G30.9 Alzheimer's disease, unspecified; F02.80 Dementia in other diseases classified elsewhere, unspecified severity, without behavioral disturbance, psychotic disturbance, mood disturbance, and anxiety; I12.9 Hypertensive chronic kidney disease with stage 1 through stage 4 chronic kidney disease, or unspecified chronic kidney disease; N18.9 Chronic kidney disease, unspecified; D64.9 Anemia, unspecified; E87.6 Hypokalemia; R13.10 Dysphagia, unspecified; E83.39 Other disorders of phosphorus metabolism; D69.6 Thrombocytopenia, unspecified; Z68.26 Body mass index [BMI] 26.0-26.9, adult; E83.42 Hypomagnesemia; F20.9 Schizophrenia, unspecified
CPT/HCPCS: 36415; 51702; 70450; 71045; 71250; 74018; 74176; 80048; 80069; 80076; 80202; 81003; 81015; 82274; 82550; 82553; 82570; 82607; 82728; 82746; 82805; 82947; 83010; 83036; 83540; 83605; 83615; 83690; 83735; 84100; 84145; 84156; 84466; 84484; 85025; 85384; 85610; 85730; 87040; 87070; 87075; 87205; 87804; 88304; 93005; 94760; 96365; 96367; 99285; J0692; J0696; J1644; J1940; J2250; J2543; J2704; J3010; J3370; J3411; J3590; J7030; J7040; J7799